=== PATIENT | male | born 1930 | race Caucasian/White ===

== ENCOUNTER 2017-04-07 11:43 | Observation (INO) | payer MEDICARE, BC, OTHER ==
[~2017-04-07] VITALS: Ht 188 cm; Wt 105.0 kg
[~2017-04-07 11:43] MED LIST: ALBUAER3 INH; ASPI81CH PO; COUM2.5T PO; ENAL2.5T PO; FERR1TAB36 PO; ISOS60TA PO; OMEP40CA2 PO; TORS1TAB12 PO; ZETI10TA5 PO
[2017-04-07 11:52] VITALS: BP 130/60; PULSE 60; RESP 24; TEMP 97.9; O2SAT 99
[2017-04-07] MEDS ORDERED: SODIUM CHLOR 0.9% 1000 ML INJ 1,000 ML IV SCH (12:12)
[2017-04-07] MEDS ORDERED: MORPHINE SULFATE 4 MG/ML INJ IV PUSH ONE (12:15)
[2017-04-07] MEDS ORDERED: TAMS5CAP PO (12:15)
[2017-04-07] MEDS ORDERED: SODIUM CHLORIDE 0.9% FLUSH 10 ML FLUSH IV FLUSH PRN ×2 (12:15→15:00)
[2017-04-07] MEDS ORDERED: PROS5TAB PO (12:15)
[2017-04-07 12:23] VITALS: O2SAT 99
--- NOTE | 2017-04-07 12:28 | PD ---
HPI Chief Complaint: Back/ Neck Pain or Injury Time Seen by Provider: 12:05 Travel History International Travel<30 days: No Contact w/Intl Traveler<30days: No Traveled to known affect area: No History of Present Illness HPI 87-year-old male brought in by EMS from home for evaluation of lower back pain. Patient complains of increasing lower back pain over the last 2 weeks, worse over the last couple of days. Pain described as squeezing sensation/sharp and radiates down his right leg. He states he called 911 yesterday because he was unable to get into his bed, and needed assistance from firefighters at that time. This morning he needed assistance getting out of bed. Pain is constant, worse with movement and palpation. He denies trauma. No urinary symptoms. No urinary or bowel incontinence or retention. He states that last year he was diagnosed with a colon cancer for which she had partial colon resection which was curetted. No other history of cancer. He reports having low-grade fevers at home. PFSH Past Medical History Hx Anticoagulant Therapy: Yes (PLAVIX , COUMADIN ) Arthritis: Yes Asthma: No Atrial Fibrillation: Yes Blood Disorders: No Heart Rhythm Problems: Yes Cancer: Yes (colon) Cardiac Catheterization: Yes Cardiovascular Problems: Yes (HTN , STENT ) High Cholesterol: Yes Chest Pain: No Congestive Heart Failure: No COPD: No Diabetes: No Endocrine: No Gastrointestinal Disorders: No Glaucoma: No Genitourinary: Yes Hepatitis: No Hiatal Hernia: No Hypertension: Yes Immune Disorder: No Neurologic: Yes Psychiatric: No Reproductive: No Respiratory: No Integumentary: No Sleep Apnea: No Thyroid Disease: No Past Surgical History Abdominal Surgery: No Cardiac Surgery: Yes (stents) Coronary Artery Bypass Graft: Yes (triple in 1988) Coronary Stent: Yes (2003) Ear Surgery: No Endocrine Surgery: No Eye Surgery: Yes (CATARACT SURGERY IN BOTH EYES) Genitourinary Surgery: No Gynecologic Surgery: No Neurologic Surgery: No Oral Surgery: No Pacemaker: Yes Thoracic Surgery: Yes (CABG) Tonsillectomy: Yes (as a child) Other Surgery: Yes (colon resection) Social History Alcohol Use: No Tobacco Use: No Substance Use: No Allergies-Medications (Allergen,Severity, Reaction): Coded Allergies: Amoxicillin (Verified Allergy, Severe, edema, hives, 04/07/17) Duricef (Verified Allergy, Severe, edema, hives, 04/07/17) Atorvastatin (Verified Allergy, Unknown, 04/07/17) Spironolactone (Verified Allergy, Unknown, 04/07/17) Trental (Verified Allergy, Unknown, 04/07/17) Tricor (Verified Allergy, Unknown, 04/07/17) Reported Meds & Prescriptions Reported Meds & Active Scripts Active Reported Proscar (Finasteride) 5 Mg Tab 5 Mg PO DAILY Do not crush. Flomax (Tamsulosin HCl) 0.4 Mg Cap 0.4 Mg PO HS Zetia (Ezetimibe) 10 Mg Tab 10 Mg PO DAILY Isosorbide Mononitrate ER (Isosorbide Mononitrate) 60 Mg Tab 60 Mg PO DAILY Enalapril (Enalapril Maleate) 2.5 Mg Tab 2.5 Mg PO HS Coumadin (Warfarin) 2.5 Mg Tab 2.5 Mg PO DAILY Omeprazole 40 Mg Cap 40 Mg PO DAILY Iron (Ferrous Sulfate) 325 Mg Tab 325 Mg PO DAILY Take Demadex (Torsemide) 20 Mg Tab 20 Mg PO DAILY Review of Systems Except as stated in HPI: all other systems reviewed are Neg Physical Exam Narrative GENERAL: Well-developed, well-nourished, awake, alert, comfortable, no acute distress. SKIN: Focused skin assessment warm/dry. No rash. HEAD: Atraumatic. Normocephalic. EYES: Pupils equal and round. No scleral icterus. No injection or drainage. ENT: Mucous membranes pink and moist. NECK: Trachea midline. No JVD. CARDIOVASCULAR: Regular rate and rhythm. Bilateral dorsalis pedis pulses are brisk and equal. RESPIRATORY: No accessory muscle use. Clear to auscultation. Breath sounds equal bilaterally. GASTROINTESTINAL: Abdomen soft, non-tender, nondistended. MUSCULOSKELETAL: No obvious deformities. No clubbing. No cyanosis. No edema. Moderate midline/lower lumbar spine tenderness as well as bilateral SI joint tenderness, right greater than left. Limited range of motion in right lower extremity secondary to pain. Normal range of motion in the rest of his extremities. NEUROLOGICAL: Awake and alert. No obvious cranial nerve deficits. Motor grossly within normal limits. Normal speech. Great toe extension present bilaterally. Diminished patellar tendon reflexes bilaterally. Normal sensation in bilateral lower extremities. No saddle anesthesia. PSYCHIATRIC: Appropriate mood and affect; insight and judgment normal. Data Data Last Documented VS Vital Signs Date Time Temp Pulse Resp B/P Pulse Ox O2 Delivery O2 Flow Rate FiO2 04/07/17 14:23 16 04/07/17 14:13 65 124/60 99 Room Air 04/07/17 11:52 97.9 Orders Complete Blood Count With Diff (04/07/17 12:12) Comprehensive Metabolic Panel (04/07/17 12:12) Prothrombin Time / Inr (Pt) (04/07/17 12:12) Act Partial Throm Time (Ptt) (04/07/17 12:12) Urinalysis - C+S If Indicated (04/07/17 12:12) Iv Access Insert/Monitor (04/07/17 12:12) Ecg Monitoring (04/07/17 12:12) Oximetry (04/07/17 12:12) Morphine Inj (Morphine Inj) (04/07/17 12:15) Sodium Chlor 0.9% 1000 Ml Inj (Ns 1000 M (04/07/17 12:12) Sodium Chloride 0.9% Flush (Ns Flush) (04/07/17 12:15) Ct Lumb Spine W/O Contrast (04/07/17 ) Ct Abd/Pel W/O Iv Contrast (04/07/17 13:38) Hydromorphone Pf Inj (Dilaudid Pf Inj) (04/07/17 14:30) Labs Laboratory Tests Test 04/07/17 12:21 White Blood Count 12.2 TH/MM3 Red Blood Count 4.15 MIL/MM3 Hemoglobin 12.2 GM/DL Hematocrit 36.9 % Mean Corpuscular Volume 88.9 FL Mean Corpuscular Hemoglobin 29.5 PG Mean Corpuscular Hemoglobin 33.2 % Concent Red Cell Distribution Width 14.5 % Platelet Count 267 TH/MM3 Mean Platelet Volume 7.9 FL Neutrophils (%) (Auto) 88.3 % Lymphocytes (%) (Auto) 4.7 % Monocytes (%) (Auto) 6.5 % Eosinophils (%) (Auto) 0.1 % Basophils (%) (Auto) 0.4 % Neutrophils # (Auto) 10.8 TH/MM3 Lymphocytes # (Auto) 0.6 TH/MM3 Monocytes # (Auto) 0.8 TH/MM3 Eosinophils # (Auto) 0.0 TH/MM3 Basophils # (Auto) 0.0 TH/MM3 CBC Comment DIFF FINAL Differential Comment Prothrombin Time 47.6 SEC Prothromb Time International 4.1 RATIO Ratio Activated Partial 52.5 SEC Thromboplast Time Sodium Level 132 MEQ/L Potassium Level 4.0 MEQ/L Chloride Level 98 MEQ/L Carbon Dioxide Level 24.6 MEQ/L Anion Gap 9 MEQ/L Blood Urea Nitrogen 37 MG/DL Creatinine 2.17 MG/DL Estimat Glomerular Filtration 29 ML/MIN Rate Random Glucose 128 MG/DL Calcium Level 9.0 MG/DL Total Bilirubin 1.2 MG/DL Aspartate Amino Transf 26 U/L (AST/SGOT) Alanine Aminotransferase 15 U/L (ALT/SGPT) Alkaline Phosphatase 165 U/L Total Protein 8.3 GM/DL Albumin 3.0 GM/DL [facility] Medical Decision Making Medical Screen Exam Complete: Yes Emergency Medical Condition: Yes Differential Diagnosis Lower back pain, vertebral fracture, osteoarthritis, sacroiliitis, cord compression less likely Narrative Course Vital signs show heart rate 60, blood pressure 130/60, pulse ox 99% on room air , oral temp of 97.9F. CBC shows WBC 12.2, hemoglobin 12.2, hematocrit 36.9, platelets 267 CMP is remarkable for BUN 37, creatinine 2.17, GFR 29 which is slightly worse than his baseline, otherwise unremarkable. CT abdomen pelvis: CONCLUSION: 1. Bladder diverticula are noted bilaterally including a left diverticulum containing a calcification. 2. Sigmoid diverticulosis. 3. Cirrhosis and portal hypertension suspected with splenomegaly. 4. Atherosclerosis. 5. Right renal cyst. CT lumbar spine: CONCLUSION: 1. Atherosclerosis. 2. Moderate to severe degenerative changes of the spine. Patient and the patient's were made aware of all findings. Patient admits to drinking 2 alcoholic drinks on Wednesdays and Fridays. Other than that he does not abuse alcohol and has never been told of possible cirrhosis in the past. He is still complaining of lower back pain which is worse with movements. He was given a dose of morphine which she states did nothing for the pain. He will be given a dose of Dilaudid. Patient is unable to ambulate secondary to lower back pain. He is clearly unsafe to be discharged home as I do not believe his will be able to properly care for him. He will be admitted for further treatment and evaluation of intractable back pain and inability to ambulate. Case discussed with [facility] hospitalist Dr. Chakraborty who will admit the patient to his service. Diagnosis Primary Impression: Intractable low back pain Additional Impressions: Inability to ambulate due to multiple joints Osteoarthritis Qualified Code: M47.816 - Osteoarthritis of lumbar spine, unspecified spinal osteoarthritis complication status Admitting Information Admitting Physician Requests: Observation Sylvester Tarango MD April 07, 2017 12:28
[2017-04-07 12:42] LABS: AUTOMATED NEUTROPHIL # 10.8 TH/MM3 (1.8-7.7); BASOPHIL % 0.4 % (0.0-2.0); EOSINOPHIL % 0.1 % (0.0-4.0); HEMATOCRIT 36.9 % (39.0-51.0); HEMO FLAGS DIFF FINAL; LYMPH % 4.7 % (9.0-44.0); LYMPHOCYTE # 0.6 TH/MM3 (1.0-4.8); MEAN CELL VOLUME 88.9 FL (80.0-100.0); MEAN CORPUSCULAR HEMOGLOBIN 29.5 PG (27.0-34.0); MEAN CORPUSCULAR HGB CONC 33.2 % (32.0-36.0); MONO % 6.5 % (0.0-8.0); NEUT % 88.3 % (16.0-70.0); PLATELET COUNT 267 TH/MM3 (150-450); RED BLOOD COUNT 4.15 MIL/MM3 (4.50-5.90); RED CELL DISTRIBUTION WIDTH 14.5 % (11.6-17.2); WHITE BLOOD COUNT 12.2 TH/MM3 (4.0-11.0)
[2017-04-07 12:49] LABS: APTT (PATIENT) 52.5 SEC (24.3-30.1); INTERNATIONAL NORMALIZED RATIO 4.1 RATIO; PROTHROMBIN TIME - PATIENT 47.6 SEC (9.8-11.6)
[2017-04-07 12:59] LABS: ANION GAP 9 MEQ/L (5-15); AST (GOT) 26 U/L (15-37); BICARBONATE 24.6 MEQ/L (21.0-32.0); BLOOD UREA NITROGEN 37 MG/DL (7-18); CHLORIDE 98 MEQ/L (98-107); GLOMERULAR FILTRATION RATE 29 ML/MIN (>89); SODIUM (NA) 132 MEQ/L (136-145)
[2017-04-07 13:02] LABS: ALKALINE PHOSPHATASE 165 U/L (45-117); ALT (GPT) 15 U/L (12-78); TOTAL BILIRUBIN ADULT 1.2 MG/DL (0.2-1.0)
[2017-04-07 14:13] VITALS: BP 124/60; PULSE 65; RESP 16; O2SAT 99
--- NOTE | 2017-04-07 14:13 | RADRPT ---
EXAM DATE/TIME: 04/07/2017 13:43 [facility] COMPARISON: No previous studies available for comparison. INDICATIONS : Right flank pain today. ORAL CONTRAST: No oral contrast ingested. RADIATION DOSE: 10.49 CTDIvol (mGy) MEDICAL HISTORY : Carcinoma, colon. Hypertension. Cardiovascular disease SURGICAL HISTORY : CABG ENCOUNTER: Initial ACUITY: 1 day PAIN SCALE: 7/10 LOCATION: Right flank TECHNIQUE: Volumetric scanning of the abdomen and pelvis was performed. Using automated exposure control and ad justment of the mA and/or kV according to patient size, radiation dose was kept as low as reasonably achievable to obtain optimal diagnostic quality images. FINDINGS: Lung bases are clear. There are degenerative changes of the spine noted. Coronary artery calcificatio n is noted and pacer leads are present. There is splenomegaly, the spleen measuring 17.5 cm in AP dim ension. The liver is slightly nodular and mildly inhomogeneous suggesting cirrhosis. Gallbladder, sto mach, pancreas, adrenal glands are unremarkable. There is an exophytic cyst at the upper pole of the right kidney noted laterally. No aneurysm. Atherosclerotic calcifications of the aorta and iliac vess els are seen. Prostate unremarkable. Bladder diverticula are present in bilateral including a diverti culum on the left measuring 2.3 cm and containing a 3 mm calculus. There is diverticulosis without ev idence of diverticulitis. Previous surgery to the colon with right hemicolectomy. No adenopathy. Smal l fat containing umbilical hernia. CONCLUSION: 1. Bladder diverticula are noted bilaterally including a left diverticulum containing a calcification . 2. Sigmoid diverticulosis. 3. Cirrhosis and portal hypertension suspected with splenomegaly. 4. Atherosclerosis. 5. Right renal cyst. Ervin Mullins MD on April 07, 2017 at 14:08 Board Certified Radiologist. This report was verified electronically.
--- NOTE | 2017-04-07 14:15 | RADRPT ---
EXAM DATE/TIME: 04/07/2017 13:43 [facility] COMPARISON: No previous studies available for comparison. INDICATIONS : Lower back pain today. RADIATION DOSE: ; Reconstructed from previous dataset MEDICAL HISTORY : Carcinoma, colon. Hypertension. Cardiovascular disease SURGICAL HISTORY : CABG ENCOUNTER: Initial ACUITY: 1 day PAIN SCALE: 8/10 LOCATION: Bilateral lower back TECHNIQUE: Volumetric scanning of the lumbar spine was performed. Multiplanar reconstructions in the sagittal, coronal and oblique axial planes were performed. Using automated exposure control and adjustment of the mA and/or kV according to patient size, radiation dose was kept as low as reasonably achievable t o obtain optimal diagnostic quality images. FINDINGS: There is moderate to severe multilevel disc space narrowing, with vacuum disc phenomenon, endplate sc lerosis and osteophytosis. No compression deformities. Schmorl node superior endplate of L3 and a lar ge Schmorl node at the inferior endplate of L1. Vacuum disc phenomenon is present. Aortic and iliac a rtery calcifications are seen. There are no fractures. Grade 1 retrolisthesis of L1 on L2 identified. CONCLUSION: 1. Atherosclerosis. 2. Moderate to severe degenerative changes of the spine. Ervin Mullins MD on April 07, 2017 at 14:12 Board Certified Radiologist. This report was verified electronically.
[2017-04-07] MEDS ORDERED: HYDROmorphone HCL PF 1 MG/ML VIAL IV PUSH ONE (14:30)
[2017-04-07] MEDS ORDERED: ONDANSETRON HCL 4 MG/2 ML VIAL IVP PRN (15:00)
[2017-04-07] MEDS ORDERED: ACETAMINOPHEN 325 MG TAB PO PRN (15:00)
[2017-04-07] MEDS ORDERED: NALOXONE HCL 0.4 MG/ML AMP IV PRN (15:00)
[2017-04-07] MEDS: SODIUM CHLOR 0.9% 1000 ML INJ 1,000 ML IV SCH (15:16)
[2017-04-07 16:05] VITALS: BP 122/60; PULSE 60; RESP 18; TEMP 98.4; O2SAT 96
--- NOTE | 2017-04-07 16:24 | MH ---
cc: TIM CHAKRABORTY MD DATE OF ADMISSION 04/07/2017 DATE OF [address] Tim Chakraborty. PRIMARY CARE PHYSICIAN Dr. Purdy REASON FOR ADMISSION Severe lower back pain. HISTORY OF THE PRESENT ILLNESS The patient is a very pleasant 87-year male with a past medical history of atrial fibrillation on Coumadin. He also has hypertension and CAD with stenting in the past. And CABG. The patient came to the ER because of severe back pain. The patient's back pain started approximately 2 weeks ago and it is getting worse. It has been getting worse for the past couple of days. It is just a pressure type sensation. It is radiating to the right thigh and right leg. He has a history of peripheral neuropathy. He has less sensation in the lower extremity with some numbness which is usual for him. There is no new numbness or there is no new or extra lack of sensation. Yesterday he could not get into the bed, so they called and a district fire management officer put him in the bed. He could not out of the bed this morning. And then they called again and they brought him to the ER. The patient has no other associated symptoms. His back pain is across the back. It is moderate to severe in intensity, radiating to the right side of the leg, mostly in the lateral and the back side. It is on movement as well. Mostly on the sitting but laying down it eased up. There is no other associated symptoms. He has no bowel or bladder incontinence or retention. There is no new numbness or tingling sensation. There is no new weakness. There is no fever or chills. There is no abdominal pain. The patient has a history of colon cancer for which he had a partial colon resection last year. As per he has low grade fever at home a few days ago. But there was no nausea or vomiting or cough or abdominal pain or sore throat. PAST MEDICAL HISTORY 1. Atrial fibrillation. 2. Hypertension. 3. CAD status post CABG and stent. 4. Arthritis. 5. Hyperlipidemia. PAST SURGICAL HISTORY 1. History of CABG, stents. 2. Partial colon resection. MEDICATIONS The medications were reviewed, please see MAR. ALLERGIES THE PATIENT HAS ALLERGY TO AMOXICILLIN, DURICEF, ATORVASTATIN, SPIRONOLACTONE, TRENTAL AND TRICOR. REVIEW OF SYSTEMS As described above in the history of present illness, otherwise negative for 10 systems. SOCIAL HISTORY The patient does not smoke or do any drugs. lives with his . Drinks two [place] three times a week. He has been doing this from the age of 22. FAMILY HISTORY CAD in the family. Mother and father of heart attack. PHYSICAL EXAMINATION GENERAL: The patient is alert and oriented x3, overweight lying on bed without any apparent distress at present. VITAL SIGNS: Show the patient is afebrile, pulse 61, respiratory rate 16, blood pressure 134/60, pulse ox is 99% on room air. HEENT: Head atraumatic, normocephalic. Eyes, THERON. Negative conjunctival icterus. Mouth unremarkable. NECK: Supple. No increased JVD. Central trachea. RESPIRATORY: Chest clear to auscultation. He has S1-S2 audible. Unable to hear any S3 gallop. GASTROINTESTINAL: Abdomen soft, nontender. No organomegaly. Positive bowel sounds. MUSCULOSKELETAL: No cyanosis or pedal edema appreciated. CENTRAL NERVOUS SYSTEM: Alert and oriented. Normal facial features. Normal power and tone of bilateral upper extremities. And also normal power and tone of lower extremities as well. Cannot lift right lower extremity above because of the pain in the back area. It is only on the right side. There is a decreased sensation on both feet which is usual for him. Decreased other tendon reflex. PSYCHIATRIC: Appropriate mood and affect. IMAGING Investigation, abdomen and pelvic CT was done which showed bladder diverticula are noted bilaterally including a left diverticulum containing a calcification. Sigmoid diverticulosis. Cirrhosis and portal hypertension splenomegaly. Atherosclerosis. Right renal cyst. CT of the spine was done which showed atherosclerotic, moderate to severe degenerative changes of the spine. LABORATORY DATA Shows PT 47.6. INR 4.1. PTT 52.5. BMP shows sodium 132, BUN 37, creatinine 2.17, GFR 29, random glucose 128. Total bilirubin 1.2, alkaline phosphatase 165, total protein 8.3, albumin 3. WBC 12.2, hemoglobin 12.2, hematocrit 36.9. ASSESSMENT 1. Moderate to severe lower back pain with inability to stand and walk. 2. Supratherapeutic INR. 3. Acute renal failure, LORIE/questionable CKD. 4. Hypertension. 5. History of coronary artery disease status post stenting. 6. History of colon cancer status post partial resection. 7. Arthritis. 8. Atrial fibrillation on Coumadin. PLAN Admit to the floor under observation. He will keep him on some of home medications and hold Coumadin. Monitor PT/INR. Plan for analgesics IV. Orthopedic consult. Plan for MRI of the back. Condition discussed with the patient and at bedside in details. Discussed with ER physician. See orders. Further recommendation to follow as the patient progresses. Tim Chakraborty MD JP/KK /3:00 PM /3:40 PM
[2017-04-07] MEDS: TAMSULOSIN HCL 0.4 MG CAP PO SCH (19:24)
[2017-04-07 19:48] VITALS: BP 115/54; PULSE 60; RESP 18; TEMP 98.2; O2SAT 99
[2017-04-07] MEDS: SODIUM CHLORIDE 0.9% FLUSH 10 ML FLUSH IV FLUSH SCH (21:00)
[2017-04-07 21:36] LABS: BLOOD, URINE NEG (NEG); COMMENT (UR) CULT NOT INDICATED; CULTURE IF INDICATED CULT NOT INDICATED; GLUCOSE,URINE NEG (NEG); KETONE, URINE NEG (NEG); MUCUS URINE FEW /lpf (OCC); NITRITE,URINE NEG (NEG); URINE COLOR YELLOW (YELLW/STRAW)
[2017-04-07] MEDS: HYDROmorphone HCL PF 1 MG/ML VIAL IV PUSH PRN (22:09)
[2017-04-08] VITALS: BP 129/67; PULSE 60; RESP 20; TEMP 99.1; O2SAT 98
[2017-04-08 04:00] VITALS: BP 134/62; PULSE 60; RESP 20; TEMP 78.6; O2SAT 96
[2017-04-08] MEDS: HYDROmorphone HCL PF 1 MG/ML VIAL IV PUSH PRN ×2 (04:50→09:33)
[2017-04-08] MEDS: SODIUM CHLOR 0.9% 1000 ML INJ 1,000 ML IV SCH ×3 (04:50→20:13)
[2017-04-08 05:15] LABS: AUTOMATED NEUTROPHIL # 4.9 TH/MM3 (1.8-7.7); BASOPHIL # 0.1 TH/MM3 (0-0.2); BASOPHIL % 0.8 % (0.0-2.0); EOSINOPHIL # 0.1 TH/MM3 (0-0.4); EOSINOPHIL % 1.1 % (0.0-4.0); HEMATOCRIT 33.7 % (39.0-51.0); HEMO FLAGS DIFF FINAL; LYMPH % 18.5 % (9.0-44.0); LYMPHOCYTE # 1.4 TH/MM3 (1.0-4.8); MEAN CELL VOLUME 88.3 FL (80.0-100.0); MONO % 12.7 % (0.0-8.0); NEUT % 66.9 % (16.0-70.0); PLATELET COUNT 230 TH/MM3 (150-450); RED BLOOD COUNT 3.82 MIL/MM3 (4.50-5.90); RED CELL DISTRIBUTION WIDTH 14.6 % (11.6-17.2); WHITE BLOOD COUNT 7.4 TH/MM3 (4.0-11.0)
[2017-04-08 05:28] LABS: BICARBONATE 26.7 MEQ/L (21.0-32.0); INTERNATIONAL NORMALIZED RATIO 4.4 RATIO; POTASSIUM 4.6 MEQ/L (3.5-5.1); PROTHROMBIN TIME - PATIENT 51.8 SEC (9.8-11.6)
[2017-04-08 07:26] VITALS: BP 139/65; PULSE 64; RESP 18; TEMP 96.7; O2SAT 97
--- NOTE | 2017-04-08 09:17 | HHI.PR ---
Subjective Subjective Remarks right knee pain with flexion, has had effusions before. Hx of severe OA, has seen ortho before but not a surgical candidate states pain goes from knee to right buttock still having pain across lower back but not as severe no cp no sob no acute changes overnight has not been out of bed yet (Leeanne Franklin) Review of Systems Constitutional Constitutional Remarks 12 point ROS completed, negative except as noted above (Leeanne Franklin) Vitals/Results Intake & Output 04/07/17 04/07/17 04/08/17 15:00 23:00 07:00 Intake Total 320 ml Output Total 320 ml Balance 0 ml Intake Oral 320 ml Output Urine Total 320 ml # Bowel Movements 0 Vital Signs Vital Signs Date Time Temp Pulse Resp B/P Pulse Ox O2 Delivery O2 Flow Rate FiO2 04/08/17 07:26 96.7 64 18 139/65 97 04/08/17 05:34 18 04/08/17 04:00 78.6 60 20 134/62 96 04/08/17 00:00 99.1 60 20 129/67 98 04/07/17 19:48 98.2 60 18 115/54 99 04/07/17 16:05 98.4 60 18 122/60 96 04/07/17 14:23 16 04/07/17 14:13 65 16 124/60 99 Room Air 04/07/17 12:23 99 Room Air 04/07/17 11:52 97.9 60 24 130/60 99 Room Air (Leeanne Franklin) CBC/BMP: 04/08/17 0434 04/08/17 0434 Lab Results Laboratory Tests Test 04/07/17 04/07/17 04/08/17 12:21 21:10 04:34 White Blood Count 12.2 TH/MM3 7.4 TH/MM3 Red Blood Count 4.15 MIL/MM3 3.82 MIL/MM3 Hemoglobin 12.2 GM/DL 11.5 GM/DL Hematocrit 36.9 % 33.7 % Mean Corpuscular Volume 88.9 FL 88.3 FL Mean Corpuscular Hemoglobin 29.5 PG 30.0 PG Mean Corpuscular Hemoglobin 33.2 % 34.0 % Concent Red Cell Distribution Width 14.5 % 14.6 % Platelet Count 267 TH/MM3 230 TH/MM3 Mean Platelet Volume 7.9 FL 7.7 FL Neutrophils (%) (Auto) 88.3 % 66.9 % Lymphocytes (%) (Auto) 4.7 % 18.5 % Monocytes (%) (Auto) 6.5 % 12.7 % Eosinophils (%) (Auto) 0.1 % 1.1 % Basophils (%) (Auto) 0.4 % 0.8 % Neutrophils # (Auto) 10.8 TH/MM3 4.9 TH/MM3 Lymphocytes # (Auto) 0.6 TH/MM3 1.4 TH/MM3 Monocytes # (Auto) 0.8 TH/MM3 0.9 TH/MM3 Eosinophils # (Auto) 0.0 TH/MM3 0.1 TH/MM3 Basophils # (Auto) 0.0 TH/MM3 0.1 TH/MM3 CBC Comment DIFF FINAL DIFF FINAL Differential Comment Prothrombin Time 47.6 SEC 51.8 SEC Prothromb Time International 4.1 RATIO 4.4 RATIO Ratio Activated Partial 52.5 SEC Thromboplast Time Sodium Level 132 MEQ/L 138 MEQ/L Potassium Level 4.0 MEQ/L 4.6 MEQ/L Chloride Level 98 MEQ/L 103 MEQ/L Carbon Dioxide Level 24.6 MEQ/L 26.7 MEQ/L Anion Gap 9 MEQ/L 8 MEQ/L Blood Urea Nitrogen 37 MG/DL 37 MG/DL Creatinine 2.17 MG/DL 1.63 MG/DL Estimat Glomerular Filtration 29 ML/MIN 40 ML/MIN Rate Random Glucose 128 MG/DL 93 MG/DL Calcium Level 9.0 MG/DL 8.9 MG/DL Total Bilirubin 1.2 MG/DL Aspartate Amino Transf 26 U/L (AST/SGOT) Alanine Aminotransferase 15 U/L (ALT/SGPT) Alkaline Phosphatase 165 U/L Total Protein 8.3 GM/DL Albumin 3.0 GM/DL Urine Color YELLOW Urine Turbidity CLEAR Urine pH 5.0 Urine Specific [place] 1.011 Urine Protein NEG mg/dL Urine Glucose (UA) NEG mg/dL Urine Ketones NEG mg/dL Urine Occult Blood NEG Urine Nitrite NEG Urine Bilirubin NEG Urine Urobilinogen LESS THAN 2.0 MG/DL Urine Leukocyte Esterase NEG Urine RBC 2 /hpf Urine WBC 1 /hpf Urine Mucus FEW /lpf Microscopic Urinalysis Comment CULT NOT INDICATED (Gross,Leeanne HACKETT) Physical Exam General General Appearance: Well Developed, Well Nourished, No Acute Distress, Comfortable (GrossLeeanne G. REVENUE COLLECTOR) Eyes Eye Exam: Pupils Equal, Pupils Reactive (GrossLeeanne G. REVENUE COLLECTOR) Ears & Nose Ears & Nose Exam: Nasal Mucosa [place] (GrossLeeanne G. REVENUE COLLECTOR) Throat Throat Exam: Oral Mucosa [place] & Moist (Gross,Leeanne G. REVENUE COLLECTOR) Neck Neck Exam: Neck Supple, Trachea Midline (GrossLeeanne G. REVENUE COLLECTOR) Pulmonary Resp Exam: Clear Bilaterally (GrossLeeanne G. REVENUE COLLECTOR) Cardiology CV Exam: Regular, Good Perfusion (GrossLeeanne G. REVENUE COLLECTOR) Gastrointestinal/Abdomen GI Exam: Soft, Non-Tender, Bowel Sounds Present, Non-Distended (GrossLeeanne G. REVENUE COLLECTOR) Musculoskeletal MS Exam: Joints Intact MS Remarks right knee swelling, painful with flexion (GrossLeeanne G. REVENUE COLLECTOR) Integumentary Skin Exam: Warm, Dry (GrossLeeanne G. REVENUE COLLECTOR) Extremeties Extremities Exam: No Edema, Pedal Pulses Palpable (GrossLeeanne G. REVENUE COLLECTOR) Neurologic Neuro Exam: Alert, Awake, Oriented, Speech Clear, Moving All Extremities, No Focal Deficits (GrossLeeanne G. REVENUE COLLECTOR) Psychiatric Psych Exam: Appropriate Responses (GrossLeeanne G. REVENUE COLLECTOR) VTE Prophylaxis VTE Prophylaxis Device: SCDs (GrossLeeanne G. REVENUE COLLECTOR) Assessment/Plan Problem List: (1) Right knee pain (2) Inability to ambulate due to multiple joints (3) Intractable low back pain (4) Osteoarthritis (5) Atrial fibrillation (6) HTN (hypertension) (7) Supratherapeutic INR (8) CAD (coronary artery disease) (9) History of colon cancer (10) Azcqe-br-vfymser kidney injury Assessment/Plan low back pain and difficulty ambulating, also with right knee pain, Hx severe OA CT lumbar spine done, results noted unable to have MRI due to ppm continue with pain management c/o right knee pain, will check xray. Ortho consult pending PT eval today continue to hold Coumadin, INR elevated 4.4 follow INR daily acute on CKD renal function improving continue with IVF unclear if pt. has underlying renal disease avoid nephrotoxic agents CM for dc planning tomorrow arrange C with PT BMP in am D/W RN D/W Dr. Paul D/W pt. This patient was seen by myself and Dr. Paul, this note is written on his behalf. (Leeanne Franklin) Assessment/Plan patient seen and examined agree with above assessment and plan pain control/symptom management may need outpatient pain management eval discussed with patient discussed with nursing staff discussed with Leeanne HACKETT (Urszula Paul MD) Problem Qualifiers (1) Right knee pain: Qualified Code: M25.561 - Chronic pain of right knee (2) Osteoarthritis: Qualified Code: M47.816 - Osteoarthritis of lumbar spine, unspecified spinal osteoarthritis complication status (3) Atrial fibrillation: Qualified Code: I48.2 - Chronic atrial fibrillation (4) HTN (hypertension): Qualified Code: I10 - Essential hypertension (5) CAD (coronary artery disease): Qualified Code: I25.10 - Coronary artery disease involving [place] coronary artery of [place] heart without angina pectoris (6) Rvhwu-va-wjblath kidney injury: Qualified Code: N17.9 - Acute renal failure superimposed on stage 3 chronic kidney disease, unspecified acute renal failure type Leeanne Franklin April 08, 2017 09:17 Urszula Paul MD April 08, 2017 10:03
[2017-04-08] MEDS: FERROUS SULFATE 325 MG (65 MG ELEMENTAL IRON) TAB PO SCH (09:32)
[2017-04-08] MEDS: EZETIMIBE 10 MG TAB PO SCH (09:32)
[2017-04-08] MEDS: FINASTERIDE 5 MG TAB PO SCH (09:32)
[2017-04-08] MEDS: PANTOPRAZOLE SOD 40 MG DELAYED RELEASE TAB PO SCH (09:32)
[2017-04-08] MEDS: ISOSORBIDE MONONITRATE 60 MG TAB PO SCH (09:32)
[2017-04-08] MEDS: TORSEMIDE 20 MG TAB PO SCH (09:32)
[2017-04-08] MEDS: SODIUM CHLORIDE 0.9% FLUSH 10 ML FLUSH IV FLUSH SCH ×2 (09:33→20:13)
[2017-04-08 11:00] VITALS: BP 121/59; PULSE 60; RESP 60; TEMP 98.3; O2SAT 97
--- NOTE | 2017-04-08 11:08 | RADRPT ---
EXAM DATE/TIME: 04/08/2017 10:48 [place] COMPARISON: No previous studies available for comparison. INDICATIONS : Right knee pain. MEDICAL HISTORY : Carcinoma, colon. Hypertension. Cardiovascular disease. SURGICAL HISTORY : CABG. Vein harvest for CABG. ENCOUNTER: Initial ACUITY: 3 days PAIN SCORE: 7/10 LOCATION: Right knee FINDINGS: 4 views of the right knee demonstrate no fracture or dislocation. There is a large joint effusion. Tr icompartmental osteophytes are present with joint space narrowing in all compartments, most severe in the lateral compartment. There are multiple clips on the medial aspect of the knee and there is wendy re arterial vascular calcification. CONCLUSION: 1. Large joint effusion from uncertain etiology. No fracture is seen. 2. Severe tricompartmental osteoarthritis. 3. Severe atherosclerotic calcification. Sudarshan Christianson MD on April 08, 2017 at 11:05 Board Certified Radiologist. This report was verified electronically.
--- NOTE | 2017-04-08 14:01 | MB ---
cc: RENEA LLOYD M.D. DATE OF CONSULTATION: 04/08/2017 REASON FOR CONSULTATION Low back pain, right leg sciatica. HISTORY OF PRESENT ILLNESS An 87-year-old male with a past history of atrial fibrillation on Coumadin as well as hypertension, heart disease and CABG. He presented to [facility] Emergency Room with severe low back pain and some referred symptoms down the right lower extremity in a sciatic nerve distribution. He states it has been getting worse for several days. He has some numbness and tingling in this region. He had difficulty getting out of bed yesterday. He called 911 and was brought to the hospital. The pain is moderate to severe, worsening symptoms with standing, walking, ambulation as well as bending. There are no other associated symptoms. No bowel or bladder dysfunction. No fevers or chills. PAST MEDICAL HISTORY 1. Atrial fibrillation. 2. Hypertension. 3. Heart disease. 4. CABG. 5. Arthritis. 6. Hyperlipidemia. PAST SURGICAL HISTORY 1. CABG. 2. Cardiac stenting. 3. Partial colon resection. MEDICATIONS 1. Vasotec. 2. Zetia. 3. Iron. 4. Proscar. 5. Imdur. 6. Demadex. 7. Protonix. 8. Flomax. 9. Coumadin. ALLERGIES 1. AMOXICILLIN. 2. DURICEF. 3. ATORVASTATIN. 4. SPIRONOLACTONE. 5. TRENTAL. 6. TRICOR. SOCIAL HISTORY He does not smoke or use drugs. He is . He drinks two drinks of alcohol per day. FAMILY HISTORY Positive for heart disease, mother and father's side. REVIEW OF SYSTEMS Negative for 12 systems other than HPI. PHYSICAL EXAMINATION VITAL SIGNS: Temperature 98.3, pulse 60, respirations 16, blood pressure 120/60. GENERAL: The patient is awake and alert, lying in bed in no acute distress. HEENT: Normocephalic, atraumatic. Pupils round. Extraocular muscles intact. NECK: Supple. LUNGS: Clear. HEART: Regular rate and rhythm. ABDOMEN: Soft, nontender. MUSCULOSKELETAL: The patient has tenderness to palpation of the lower lumbar spine. He has increasing symptoms with a straight leg raise on the right side. No significant neurologic weakness to the lower extremities. CT scan lumbar spine shows multilevel degenerative disc disease and osteoarthritis. No fracture seen. Of note, he is not able to get an MRI because he does have a pacemaker. LABORATORY STUDIES White blood cell count 7.4, hemoglobin 11, hematocrit 33, platelets 230. INR is 4.4. Creatinine 1.63. Urinalysis is negative. IMAGING CT scan of the lumbar spine is reviewed that shows multilevel severe degenerative disc disease and osteoarthritis. No fracture seen. X-ray of the right knee is reviewed that shows severe [id number]-[id number] osteoarthritis, evidence of prior saphenous vein harvesting for CABG with surgical clips seen. He has atherosclerotic vessel disease seen as well. IMPRESSION An 87-year-old male with low back pain, right leg sciatica, severe degenerative disc disease and osteoarthritis of the lumbar spine. No fracture seen on x-ray. Unable to get an MRI because of the pacemaker. He has a history of heart disease, CABG, pacemaker, on Coumadin with an INR of greater than 4, and also significant osteoarthritis of his right knee. PLAN I discussed the diagnosis with the patient and treatment options. At this point I recommend appropriate pain management for his condition. I do recommend therapy. He needs to be out of bed. Consideration of pain management intervention with epidural injections. He would, however, have to be off Coumadin as this would have a risk of bleeding and epidural hematoma. All questions have been answered. Renea Lloyd MD JWM/JUAN PABLO /1:35 PM /1:45 PM
[2017-04-08 15:36] VITALS: BP 128/60; PULSE 60; RESP 20; TEMP 99.2; O2SAT 98
[2017-04-08] MEDS: ENALAPRIL MALEATE 2.5 MG TAB PO SCH (20:13)
[2017-04-08] MEDS: TAMSULOSIN HCL 0.4 MG CAP PO SCH (20:13)
[2017-04-08 23:55] VITALS: BP 132/64; PULSE 62; RESP 17; TEMP 98.2; O2SAT 96
[2017-04-09] VITALS (7 sets, daily range): BP systolic 107–157; BP diastolic 59–71; PULSE 60–70; RESP 16–21; TEMP 98.1–99; O2SAT 95–98
[2017-04-09] MEDS: HYDROmorphone HCL PF 1 MG/ML VIAL IV PUSH PRN ×2 (04:46→08:53)
[2017-04-09] MEDS: SODIUM CHLOR 0.9% 1000 ML INJ 1,000 ML IV SCH ×2 (05:12→17:04)
[2017-04-09 07:30] LABS: INTERNATIONAL NORMALIZED RATIO 5.9 RATIO; PROTHROMBIN TIME - PATIENT 70.2 SEC (9.8-11.6)
[2017-04-09 07:56] LABS: BICARBONATE 26.1 MEQ/L (21.0-32.0); POTASSIUM 4.5 MEQ/L (3.5-5.1)
[2017-04-09] MEDS: FERROUS SULFATE 325 MG (65 MG ELEMENTAL IRON) TAB PO SCH (08:46)
[2017-04-09] MEDS: EZETIMIBE 10 MG TAB PO SCH (08:47)
[2017-04-09] MEDS: FINASTERIDE 5 MG TAB PO SCH (08:47)
[2017-04-09] MEDS: PANTOPRAZOLE SOD 40 MG DELAYED RELEASE TAB PO SCH (08:47)
[2017-04-09] MEDS: TORSEMIDE 20 MG TAB PO SCH (08:47)
[2017-04-09] MEDS: ISOSORBIDE MONONITRATE 60 MG TAB PO SCH (08:48)
[2017-04-09] MEDS: SODIUM CHLORIDE 0.9% FLUSH 10 ML FLUSH IV FLUSH SCH ×2 (08:48→19:57)
--- NOTE | 2017-04-09 09:23 | HHI.PR ---
Subjective Remarks Low back pain, IV meds mildly effective Right knee pain with mild effusion Resting in bed Alert present Afebrile (Kyara Mercedes) Objective Objective Results - Vital Signs Date Time Temp Pulse Resp B/P Pulse Ox O2 Delivery O2 Flow Rate FiO2 04/09/17 08:00 98.2 60 16 140/64 96 04/09/17 07:28 98.2 60 16 140/64 96 04/09/17 03:28 98.2 60 16 139/71 98 04/08/17 23:55 98.2 62 17 132/64 96 04/08/17 15:36 99.2 60 20 128/60 98 04/08/17 11:00 98.3 60 60 121/59 97 04/08/17 10:03 16 I/O 04/08/17 04/08/17 04/08/17 04/09/17 04/09/17 04/09/17 07:00 15:00 23:00 07:00 15:00 23:00 Intake Total 320 ml 120 ml Output Total 320 ml 300 ml Balance 0 ml 120 ml -300 ml Intake Oral 320 ml 120 ml Output Urine Total 320 ml 300 ml # Bowel Movements 0 (Kyara Mercedes) Result Diagram: 04/08/17 0434 04/09/17 0641 ROS General: Fatigue, Weakness (generalized), Other (10 point ROS done positives noted other systems negative or unremarkable) Cardiac: Edema (trace of lower leg bilateral, ) Pulmonary: Cough (occasional) GI: BM (right before admission, bowel regimen intact) Neuro/MS: Other (low back pain acute on chronic, with debility, right leg pain radiation from low back) (Kyara Mercedes) Physical Exam Physical Exam PHYSICAL EXAMINATION GENERAL: This is an obese well-developed elderly male Resting in the bed He is alert and awake, HEAD: Normocephalic without any lesion or mass noted. Facial features appear symmetric. OROPHARYNGEAL: Oropharynx without erythema or edema. NECK: Supple. No nuchal rigidity or lymphadenopathy. Trachea midline without deviation. CARDIAC: rhythm and rate controlled less than 100, , S1 and S2 are heard. LUNGS: Clear to auscultation bilaterally. no wheeze, no rhonchi ABDOMEN: Soft, round, nontender, Bowel sounds are heard in all four quadrants. No nausea or vomiting EXTREMITIES: Trace edema. Pulses equal bilateral. NEUROLOGICAL: Patient mood and affect appropriate. No focal deficit SKIN:Warm and moist Objective Remarks Mild low back pain radiating into my right leg continues to be painful (Kyara Mercedes) A/P Assessment and Plan (1) Right knee pain (2) Inability to ambulate due to multiple joints (3) Intractable low back pain (4) Osteoarthritis (5) Atrial fibrillation (6) HTN (hypertension) (7) Supratherapeutic INR (8) CAD (coronary artery disease) (9) History of colon cancer (10) Cmtgc-sm-hpwcriv kidney injury Assessment/Plan Right knee pain, probable osteoarthritis and small effusion, can follow up as an outpatient, continue to increase mobility is much as possible in a safe environment Osteoarthritis, generalized in his joints, outpatient treatment regimen, physical therapy Joint pain in toes and feet, being followed per podiatry on an outpatient basis , right great toe has healing wound, covered with Band-Aid Probable sciatica low back pain and difficulty ambulating, Right knee pain with possible effusion and osteoarthritis continue to hold Coumadin, appreciate consultation of orthopedic physician appropriate pain management for his condition Physical therapy. He needs to be out of bed. Possible epidural injections. He would, however, have to be off Coumadin as this would have a risk of bleeding and epidural hematoma. INR elevated 4.4 on admission and continues to climb to 5.9, 1 dose of vitamin K given injection, follow INR daily , Coumadin management per pharmacy acute on CKD renal function improving with gentle hydration CM for dc planning possible tomorrow, will need by mouth pain management Monitor PT INR for stabilization before discharge arrange [facility] with PT Patient can follow up with ortho an outpatient for any further injections or workup since he would have to be off Coumadin. Discussed with patient and his Discussed with nurse Discussed with Dr. paul, seen on her behalf (Kyara Mercedes) Assessment and Plan patient seen and examined agree with above assessment and plan s/p VIT K monitor INR Appreciate Ortho input pain management consult start percocet dilaudid for breakthrough pain PT eval plan of care discussed with patient, nursing staff , at bed side and Kyara HACKETT INR in am (Urszula Paul MD) Kyara Mercedes April 09, 2017 09:23 Urszula Paul MD April 09, 2017 10:44
[2017-04-09] MEDS ORDERED: PHYTONADIONE 10 MG/ML VIAL SQ ONE (09:45)
[2017-04-09] MEDS: oxyCODONE/ACETAMINOPHEN 5 MG/325 MG TAB PO PRN ×3 (10:36→20:03)
[2017-04-09] MEDS: TAMSULOSIN HCL 0.4 MG CAP PO SCH (20:03)
[2017-04-09] MEDS: ENALAPRIL MALEATE 2.5 MG TAB PO SCH (20:03)
[2017-04-10] MEDS: oxyCODONE/ACETAMINOPHEN 5 MG/325 MG TAB PO PRN ×4 (00:47→21:27)
[2017-04-10] MEDS: SODIUM CHLOR 0.9% 1000 ML INJ 1,000 ML IV SCH (02:25)
[2017-04-10] MEDS: HYDROmorphone HCL PF 1 MG/ML VIAL IV PUSH PRN ×2 (02:51→09:23)
[2017-04-10 05:02] VITALS: BP 141/62; PULSE 60; RESP 20; TEMP 97.9; O2SAT 97
[2017-04-10 05:26] LABS: INTERNATIONAL NORMALIZED RATIO 3.8 RATIO; PROTHROMBIN TIME - PATIENT 45.1 SEC (9.8-11.6)
[2017-04-10 07:06] VITALS: BP 133/61; PULSE 60; RESP 18; TEMP 98.2; O2SAT 96
[2017-04-10] MEDS: SODIUM CHLORIDE 0.9% FLUSH 10 ML FLUSH IV FLUSH SCH ×2 (09:23→21:26)
[2017-04-10] MEDS: TORSEMIDE 20 MG TAB PO SCH (09:25)
[2017-04-10] MEDS: PANTOPRAZOLE SOD 40 MG DELAYED RELEASE TAB PO SCH (09:25)
[2017-04-10] MEDS: FERROUS SULFATE 325 MG (65 MG ELEMENTAL IRON) TAB PO SCH (09:25)
[2017-04-10] MEDS: ISOSORBIDE MONONITRATE 60 MG TAB PO SCH (09:25)
[2017-04-10] MEDS: FINASTERIDE 5 MG TAB PO SCH (09:25)
[2017-04-10] MEDS: EZETIMIBE 10 MG TAB PO SCH (09:26)
--- NOTE | 2017-04-10 09:42 | HHI.PR ---
Subjective Remarks Low back pain, continues Right knee pain with mild effusion decreased to no appetite X 2 weeks Alert, debility present Afebrile (Kyara Mercedes) Objective Objective Results - Vital Signs Date Time Temp Pulse Resp B/P Pulse Ox O2 Delivery O2 Flow Rate FiO2 04/10/17 07:06 98.2 60 18 133/61 96 04/10/17 05:02 97.9 60 20 141/62 97 04/09/17 23:40 99.0 70 21 157/67 96 04/09/17 19:35 98.9 61 20 154/68 98 04/09/17 17:04 18 04/09/17 15:39 98.1 62 16 142/64 95 04/09/17 12:13 98.3 60 16 107/59 96 I/O 04/09/17 04/09/17 04/09/17 04/10/17 04/10/17 04/10/17 07:00 15:00 23:00 07:00 15:00 23:00 Intake Total 1076 ml 240 ml Output Total 700 ml 350 ml 175 ml Balance 376 ml 240 ml -350 ml -175 ml Intake Oral 480 ml 240 ml IV Total 596 ml Output Urine Total 700 ml 350 ml 175 ml # Voids 2 (Kyara Mercedes) Result Diagram: 04/08/17 0434 04/09/17 0641 ROS General: Fatigue, Weakness, Other (10 point ROS done, positives noted) HEENT: Other (no appetite, to solid food, drinking liquids) GI: BM (regimen) Neuro/MS: Other (LBP) (Kyara Mercedes) Physical Exam Physical Exam PHYSICAL EXAMINATION GENERAL: This is an obese elderly male who appears to be in no acute distress at rest. He is awake, HEAD: Normocephalic Facial features appear symmetric. OROPHARYNGEAL: Oropharynx without erythema or edema. NECK: Supple. No nuchal rigidity or lymphadenopathy. Trachea midline without deviation. CARDIAC: Regular rhythm, regular rate LUNGS: Clear to auscultation bilaterally. low volumes at rest ABDOMEN: obese,Soft, nontender, no organomegaly or masses. Bowel sounds are heard in all four quadrants. EXTREMITIES: minimal trace edema. Pulses equal bilateral. NEUROLOGICAL: Patient mood and affect ok, questional poor historian to recent events SKIN:Warm and moist Objective Remarks Im just not hungry and not going to try? (Kyara Mercedes) A/P Assessment and Plan (1) Right knee pain (2) Inability to ambulate due to multiple joints (3) Intractable low back pain (4) Osteoarthritis (5) Atrial fibrillation (6) HTN (hypertension) (7) Supratherapeutic INR (8) CAD (coronary artery disease) (9) History of colon cancer (10) Rvooo-gn-hncphln kidney injury Assessment/Plan Right knee pain, probable osteoarthritis and small effusion, PT eval,, continue to increase mobility is much as possible in a safe environment, possible inpt. rehab, eval done Osteoarthritis, generalized in his joints, , physical therapy possible Joint pain in toes and feet, being followed per podiatry on an outpatient basis , right great toe has healing wound, covered with Band-Aid Probable sciatica low back pain and difficulty ambulating, Right knee pain with possible effusion and osteoarthritis continue to hold Coumadin, appreciate consultation of orthopedic physician will need pain management in and OP Physical therapy. He needs to be out of bed. PT eval and treat. Would benefit from rehab. Ordered OT eval and treat for [facility] transfer tomorrow Decreased appetite, and not eating much, added boast. with meals tid Constipation, needs to have bowel movement today so he can transition to [facility] tomorrow. Mag citrate bottle 1, INR elevated 4.4 on admission and continues to climb to 5.9, 1 dose of vitamin K given injection, now 3.8. Monitor, no Coumadin for now acute on CKD renal function improving with gentle hydration, PO fluids encouraged CM for dc planning possible inpt rehab, plan is for [facility] tomorrow according to case management Monitor PT INR for stabilization before discharg, can also be monitored from [facility] rehabilitation Patient can follow up with ortho an outpatient for any further injections after rehab focus and strengthing vitals reviewed labs reviewed. Discussed with patient and his Discussed with nurse Discussed with Dr. paul, seen on her behalf (Kyara Mercedes) Assessment and Plan patient seen and examined getting some relief withpo percocet increase percocet d/c i/v dilaudid PT recommends REhab awaiting on [facility] if not [facility] with patient/ at bed side discussed with Kyara discussed with Case management (rUszula Paul MD) Kyara Mercedes April 10, 2017 09:42 Urszula Paul MD April 10, 2017 11:54
[2017-04-10 11:52] VITALS: BP 112/57; PULSE 63; RESP 18; TEMP 97.8; O2SAT 97
[2017-04-10] MEDS ORDERED: OXYC1TAB63 PO (11:56)
[2017-04-10] MEDS: BISACODYL 10 MG SUPP RECTAL SCH (15:15)
[2017-04-10] MEDS ORDERED: MAGNESIUM CITRATE SOLN 300 ML BTL PO ONE (15:15)
[2017-04-10 16:00] VITALS: BP 106/59; PULSE 60; RESP 16; TEMP 97.7; O2SAT 97
[2017-04-10] MEDS: ENALAPRIL MALEATE 2.5 MG TAB PO SCH (21:25)
[2017-04-10] MEDS: DOCUSATE SODIUM 100 MG CAP PO SCH (21:25)
[2017-04-10] MEDS: TAMSULOSIN HCL 0.4 MG CAP PO SCH (21:25)
[2017-04-10 21:31] VITALS: BP 131/65; PULSE 105; RESP 20; TEMP 98.5; O2SAT 96
[2017-04-11 01:12] VITALS: BP 132/60; PULSE 77; RESP 18; TEMP 98.8; O2SAT 98
[2017-04-11] MEDS: oxyCODONE/ACETAMINOPHEN 5 MG/325 MG TAB PO PRN ×2 (03:57→15:25)
[2017-04-11 07:43] VITALS: BP 116/64; PULSE 60; RESP 16; TEMP 97.9; O2SAT 95
[2017-04-11] MEDS: SODIUM CHLORIDE 0.9% FLUSH 10 ML FLUSH IV FLUSH SCH (09:00)
[2017-04-11 09:16] LABS: PROTHROMBIN TIME - PATIENT 22.2 SEC (9.8-11.6)
[2017-04-11] MEDS: EZETIMIBE 10 MG TAB PO SCH (09:38)
[2017-04-11] MEDS: FERROUS SULFATE 325 MG (65 MG ELEMENTAL IRON) TAB PO SCH (09:38)
[2017-04-11] MEDS: PANTOPRAZOLE SOD 40 MG DELAYED RELEASE TAB PO SCH (09:38)
[2017-04-11] MEDS: FINASTERIDE 5 MG TAB PO SCH (09:38)
[2017-04-11] MEDS: ISOSORBIDE MONONITRATE 60 MG TAB PO SCH (09:38)
[2017-04-11] MEDS: BISACODYL 10 MG SUPP RECTAL SCH (09:38)
--- NOTE | 2017-04-11 09:44 | HHI.DCPOC ---
Discharge Care Plan Diagnosis: (1) Atrial fibrillation (2) CAD (coronary artery disease) (3) Osteoarthritis (4) HTN (hypertension) (5) Right knee pain (6) History of colon cancer (7) Supratherapeutic INR (8) Inability to ambulate due to multiple joints (9) Intractable low back pain (10) Tppmp-tr-qcqfvov kidney injury Your Health Problems Are: Difficulty with ADL Goals to Promote Your Health * To prevent worsening of your condition and complications * To maintain your health at the optimal level Directions to Meet Your Goals Take your medications as prescribed Follow your dietary instruction Follow activity as directed Keep your appointments as scheduled Take your immunizations and boosters as scheduled If your symptoms worsen call your PCP, if no PCP go to Urgent Care Center or Emergency Room Smoking is Dangerous to Your Health. Avoid second hand smoke Call the 24-hour hour crisis hotline for domestic abuse at [place] [place]. [facility] April 11, 2017 09:44
[2017-04-11] MEDS ORDERED: WARFARIN SOD 2.5 MG TAB PO SCH ×2 (09:45→16:00)
--- NOTE | 2017-04-11 09:55 | HHI.PR ---
Subjective Subjective Remarks right knee pain when left is lifted low back pain with activity did get out of bed with PT and did fairly well no cp no sob has not had BM, refused supp. Review of Systems Constitutional Constitutional Remarks 12 point ROS completed, negative except as noted above Vitals/Results Intake & Output 04/10/17 04/10/17 04/11/17 15:00 23:00 07:00 Intake Total 960 ml 120 ml Output Total 175 ml Balance -175 ml 960 ml 120 ml Intake Oral 960 ml 120 ml Output Urine Total 175 ml # Voids 2 Vital Signs Vital Signs Date Time Temp Pulse Resp B/P Pulse Ox O2 Delivery O2 Flow Rate FiO2 04/11/17 07:43 97.9 60 16 116/64 95 04/11/17 01:12 98.8 77 18 132/60 98 04/10/17 21:31 98.5 105 20 131/65 96 04/10/17 16:00 97.7 60 16 106/59 97 04/10/17 11:52 97.8 63 18 112/57 97 CBC/BMP: 04/08/17 0434 04/09/17 0641 Lab Results Laboratory Tests Test 04/11/17 08:40 Prothrombin Time 22.2 SEC Prothromb Time International 2.0 RATIO Ratio Physical Exam General General Appearance: Well Developed, Well Nourished, No Acute Distress, Comfortable Eyes Eye Exam: Pupils Equal, Pupils Reactive Ears & Nose Ears & Nose Exam: Nasal Mucosa [place] Throat Throat Exam: Oral Mucosa [place] & Moist Neck Neck Exam: Neck Supple, Trachea Midline Pulmonary Resp Exam: Clear Bilaterally Cardiology CV Exam: Regular, Good Perfusion Gastrointestinal/Abdomen GI Exam: Soft, Non-Tender, Bowel Sounds Present, Non-Distended Musculoskeletal MS Exam: Joints Intact MS Remarks right knee swelling, painful with flexion Integumentary Skin Exam: Warm, Dry Extremeties Extremities Exam: No Edema, Pedal Pulses Palpable Neurologic Neuro Exam: Alert, Awake, Oriented, Speech Clear, Moving All Extremities, No Focal Deficits Psychiatric Psych Exam: Appropriate Responses VTE Prophylaxis VTE Prophylaxis Device: SCDs Assessment/Plan Problem List: (1) Right knee pain (2) Inability to ambulate due to multiple joints (3) Intractable low back pain (4) Osteoarthritis (5) Atrial fibrillation (6) HTN (hypertension) (7) Supratherapeutic INR (8) CAD (coronary artery disease) (9) History of colon cancer (10) Qrcyx-lg-dqabavb kidney injury Assessment/Plan low back pain and difficulty ambulating, also with right knee pain, Hx severe OA CT lumbar spine done, results noted unable to have MRI due to ppm continue with pain management right knee effusion noted, continue with PT. Ortho input appreciated, non surgical management. PT recommended with rehab. Poss epidural injections as OP, would need to be off Coumadin f/u ortho as OP PT working with pt [facility] has accepted. Coumadin held, INR elevated received vit k yesterday INR today 2 resume Coumadin today follow INR daily follow INR daily acute on CKD renal function improving continue with IVF unclear if pt. has underlying renal disease avoid nephrotoxic agents constipation refused suppository Lactulose today CM for dc planning, accepted at [facility] Discharge to [facility] today after he has BM F/U ortho Diet-heart healthy Activity-as tolerated. D/W RN D/W Dr. Paul D/W pt. D/W CM This patient was seen by myself and Dr. Paul, this note is written on his behalf. Discharge Minutes: 45 Problem Qualifiers (1) Right knee pain: Qualified Code: M25.561 - Chronic pain of right knee (2) Osteoarthritis: Qualified Code: M47.816 - Osteoarthritis of lumbar spine, unspecified spinal osteoarthritis complication status (3) Atrial fibrillation: Qualified Code: I48.2 - Chronic atrial fibrillation (4) HTN (hypertension): Qualified Code: I10 - Essential hypertension (5) CAD (coronary artery disease): Qualified Code: I25.10 - Coronary artery disease involving [place] coronary artery of [place] heart without angina pectoris (6) Vpqbl-fo-xmyyzvi kidney injury: Qualified Code: N17.9 - Acute renal failure superimposed on stage 3 chronic kidney disease, unspecified acute renal failure type [facility] April 11, 2017 09:55
[2017-04-11] MEDS ORDERED: LACTULOSE SYRUP 20 GM/30 ML CUP PO ONE (10:00)
--- NOTE | 2017-04-11 10:23 | HHI.DS ---
Discharge Summary Admission Date April 07, 2017 at 14:50 Discharge Date: April 11, 2017 Admitting Diagnosis intractable low back pain, osteoarthritis, unable to ambulate (1) Intractable low back pain (2) Atrial fibrillation (3) CAD (coronary artery disease) (4) Osteoarthritis (5) HTN (hypertension) (6) Right knee pain (7) History of colon cancer (8) Supratherapeutic INR (9) Inability to ambulate due to multiple joints (10) [id number] kidney injury CBC/BMP: 04/08/17 0434 04/09/17 0641 Significant Findings Laboratory Tests Test 04/09/17 04/10/17 04/11/17 06:41 03:45 08:40 Prothrombin Time 70.2 SEC 45.1 SEC 22.2 SEC (9.8-11.6) (9.8-11.6) (9.8-11.6) Blood Urea Nitrogen 32 MG/DL (7-18) Creatinine 1.51 MG/DL (0.60-1.30) Estimat Glomerular Filtration 44 ML/MIN (>89) Rate Imaging Last Impressions Knee X-Ray 04/08/17 0000 Signed Impressions: Service Date/Time: Saturday, April 08, 2017 10:48 - CONCLUSION: 1. Large joint effusion from uncertain etiology. No fracture is seen. 2. Severe tricompartmental osteoarthritis. 3. Severe atherosclerotic calcification. Sudarshan Christianson MD Abdomen/Pelvis CT 04/07/17 1338 Signed Impressions: Service Date/Time: Friday, April 07, 2017 13:43 - CONCLUSION: 1. Bladder diverticula are noted bilaterally including a left diverticulum containing a calcification. 2. Sigmoid diverticulosis. 3. Cirrhosis and portal hypertension suspected with splenomegaly. 4. Atherosclerosis. 5. Right renal cyst. Ervin Mullins MD Lumbar Spine CT 04/07/17 0000 Signed Impressions: Service Date/Time: Friday, April 07, 2017 13:43 - CONCLUSION: 1. Atherosclerosis. 2. Moderate to severe degenerative changes of the spine. Ervin Mullins MD Hospital Course The patient is a very pleasant 87-year male with a past medical history of atrial fibrillation on Coumadin. He also has hypertension and CAD with stenting in the past. And CABG. The patient came to the ER because of severe back pain. The patient's back pain started approximately 2 weeks ago and it is getting worse. It has been getting worse for the past couple of days. It is just a pressure type sensation. It is radiating to the right thigh and right leg. He has a history of peripheral neuropathy. He has less sensation in the lower extremity with some numbness which is usual for him. There is no new numbness or there is no new or extra lack of sensation. Yesterday he could not get into the bed, so they called and a fire production operator put him in the bed. He could not out of the bed this morning. And then they called again and they brought him to the ER. The patient has no other associated symptoms. His back pain is across the back. It is moderate to severe in intensity, radiating to the right side of the leg, mostly in the lateral and the back side. It is on movement as well. Mostly on the sitting but laying down it eased up. There is no other associated symptoms. He has no bowel or bladder incontinence or retention. There is no new numbness or tingling sensation. There is no new weakness. There is no fever or chills. There is no abdominal pain. The patient has a history of colon cancer for which he had a partial colon resection last year. As per he has low grade fever at home a few days ago. But there was no nausea or vomiting or cough or abdominal pain or sore throat. IMAGING Investigation, abdomen and pelvic CT was done which showed bladder diverticula are noted bilaterally including a left diverticulum containing a calcification. Sigmoid diverticulosis. Cirrhosis and portal hypertension splenomegaly. Atherosclerosis. Right renal cyst. CT of the spine was done which showed atherosclerotic, moderate to severe degenerative changes of the spine. LABORATORY DATA Shows PT 47.6. INR 4.1. PTT 52.5. BMP shows sodium 132, BUN 37, creatinine 2.17, GFR 29, random glucose 128. Total bilirubin 1.2, alkaline phosphatase 165, total protein 8.3, albumin 3. WBC 12.2, hemoglobin 12.2, hematocrit 36.9. Pt. was admitted and found with: (1) Right knee pain (2) Inability to ambulate due to multiple joints (3) Intractable low back pain (4) Osteoarthritis (5) Atrial fibrillation (6) HTN (hypertension) (7) Supratherapeutic INR (8) CAD (coronary artery disease) (9) History of colon cancer (10) [id number] kidney injury During the course of the hospitalization, the following took place: Patient was admitted with low back pain and difficulty ambulating, also with right knee pain, Hx severe OA CT lumbar spine done, results noted unable to have MRI due to ppm Put on appropriate pain management Orthopedic consult Complain of increasing right knee pain, x-ray ordered. X-ray showed right knee effusion Ortho input appreciated, non surgical management. PT recommended with rehab. Poss epidural injections as OP, would need to be off Coumadin Patient continued with physical therapy, assisted ambulation Case management consulted for DC planning f/u ortho as OP PT working with pt. patient was able to get out of bed with assistance. Pain was moderately controlled. Coumadin held, INR elevated received vit k yesterday INR today 2 resume some Coumadin follow INR daily acute on CKD C IV fluids, renal function improved. unclear if pt. has underlying renal disease Instructed to avoid nephrotoxic agents Complained of constipation refused suppository Lactulose ordered Put on bowel regimen CM for dc planning, accepted at [facility] Discharge to [facility] today in stable condition. F/U ortho Diet-heart healthy Activity-as tolerated. Pt Condition on Discharge: Stable Discharge Disposition: Rehab Inpatient Discharge Instructions DIET: Follow Instructions for: Heart Healthy Diet Activities you can perform: Weight Bearing as Steven Follow up Referrals: PCP Follow-up New Medications: Oxycodone-Acetaminophen (Oxycodone-Acetaminophen) 5-325 mg Tab 2 TAB PO Q6HR PRN pain 6-10 Days 14 TAB Continued Medications: Enalapril (Enalapril) 2.5 Mg Tab 2.5 MG PO HS #30 Ref 0 TAB Ezetimibe (Zetia) 10 Mg Tab 10 MG PO DAILY #30 Ref 0 TAB Ferrous Sulfate (Iron) 325 Mg Tab 325 MG PO DAILY Take Nutritional Supplement Ref 0 TAB Finasteride (Proscar) 5 Mg Tab 5 MG PO DAILY Do not crush. Manage Prostate Problems #30 Ref 0 TAB Isosorbide Mononitrate ER (Isosorbide Mononitrate ER) 60 Mg Tab 60 MG PO DAILY Prevent Chest Pain #30 Ref 0 TAB Omeprazole (Omeprazole) 40 Mg Cap 40 MG PO DAILY #30 Ref 0 CAP Tamsulosin (Flomax) 0.4 Mg Cap 0.4 MG PO HS Manage Prostate Problems #30 Ref 0 CAP Torsemide (Demadex) 20 Mg Tab 20 MG PO DAILY #30 Ref 0 TAB Discontinued Medications: Warfarin (Coumadin) 2.5 Mg Tab 2.5 MG PO DAILY Prevent Blood Clot #30 Ref 0 TAB Leeanne Franklin [facility] April 11, 2017 10:23
[2017-04-11] MEDS: DOCUSATE SODIUM 100 MG CAP PO SCH (11:24)
[2017-04-11] MEDS: TORSEMIDE 20 MG TAB PO SCH (11:25)
[2017-04-11 11:33] VITALS: BP 120/58; PULSE 60; RESP 16; TEMP 98; O2SAT 98
[2017-04-11 15:38] VITALS: BP 142/80; PULSE 73; RESP 18; TEMP 99.6; O2SAT 97
[2017-04-11 16:45] VITALS: RESP 20
[2017-04-24] MEDS ORDERED: COMMODE 3-IN-11 MIS (14:49)
[2017-04-26] MEDS ORDERED: OMEP40CA2 PO (13:00)
[2017-04-26] MEDS ORDERED: ENAL2.5T PO (13:00)
[2017-04-26] MEDS ORDERED: OXYC1TAB35 PO (13:00)
[2017-04-26] MEDS ORDERED: PROS5TAB PO (13:00)
[2017-04-26] MEDS ORDERED: ZETI10TA5 PO (13:00)
[2017-04-26] MEDS ORDERED: FERR325T20 PO (13:00)
[2017-04-26] MEDS ORDERED: TORS5TAB2 PO (13:00)
[2017-04-26] MEDS ORDERED: TAMS5CAP PO (13:00)
[2017-04-26] MEDS ORDERED: COUM1TAB PO (13:00)
[2017-04-26] MEDS ORDERED: SENN1TAB PO (13:00)
[2017-04-26] MEDS ORDERED: ISOS60TA PO (13:00)
[2017-04-26] MEDS ORDERED: NEUR300C PO (13:00)
[2017-04-26] MEDS ORDERED: GNP5TAB6 PO (13:00)
== END 2017-04-11 17:30 ==
LOC: NEPD 11:43 → NEDA 14:50 → NEPGCP 15:48
PROVIDERS: ADMIT Specialist; ATTEND Specialist
DX: M54.41 Lumbago with sciatica, right side (principal); R26.2 Difficulty in walking, not elsewhere classified; M25.561 Pain in right knee; M15.9 Polyosteoarthritis, unspecified; N17.9 Acute kidney failure, unspecified; M51.36 Other intervertebral disc degeneration, lumbar region; M47.816 Spondylosis without myelopathy or radiculopathy, lumbar region; I25.10 Atherosclerotic heart disease of native coronary artery without angina pectoris; I48.91 Unspecified atrial fibrillation; I12.9 Hypertensive chronic kidney disease with stage 1 through stage 4 chronic kidney disease, or unspecified chronic kidney disease; N18.9 Chronic kidney disease, unspecified; R63.0 Anorexia; K59.00 Constipation, unspecified; G62.9 Polyneuropathy, unspecified; E78.5 Hyperlipidemia, unspecified; R79.1 Abnormal coagulation profile; Z85.038 Personal history of other malignant neoplasm of large intestine; Z79.01 Long term (current) use of anticoagulants; Z95.5 Presence of coronary angioplasty implant and graft; Z95.1 Presence of aortocoronary bypass graft; Z90.49 Acquired absence of other specified parts of digestive tract; Z88.1 Allergy status to other antibiotic agents; Z88.8 Allergy status to other drugs, medicaments and biological substances; Z95.0 Presence of cardiac pacemaker
CPT/HCPCS: 72131; 73564; 74176; 80048; 80053; 81001; 85025; 85610; 85730; 96374; 96375; 97162; 97167; 97530; 99285; G0378; G8987; G8988; J1170; J2270; J3430; J7030

== ENCOUNTER 2017-04-27 23:40 | Inpatient (IN) | payer MEDICARE, BC, OTHER ==
[~2017-04-27] VITALS: Ht 188 cm; Wt 100.0 kg
[~2017-04-27 23:40] MED LIST changes: -ALBUAER3 INH; -ASPI81CH PO; +COMMODE 3-IN-11 MIS; +COUM1TAB PO; -COUM2.5T PO; -FERR1TAB36 PO; +FERR325T20 PO; +GNP5TAB6 PO; +NEUR300C PO; +OXYC1TAB35 PO; +PROS5TAB PO; +SENN1TAB PO; +TAMS5CAP PO; -TORS1TAB12 PO; +TORS5TAB2 PO
[2017-04-27 23:44] VITALS: BP 127/66; PULSE 71; RESP 17; TEMP 99; O2SAT 99
[2017-04-28] VITALS (8 sets, daily range): BP systolic 104–121; BP diastolic 50–64; PULSE 60–77; RESP 16–19; TEMP 97.6–98.4; O2SAT 95–97
[2017-04-28] MEDS ORDERED: MORPHINE SULFATE 4 MG/ML INJ IV PUSH ONE
[2017-04-28 00:18] LABS: BASOPHIL # 0.1 TH/MM3 (0-0.2); BASOPHIL % 0.4 % (0.0-2.0); EOSINOPHIL % 0.2 % (0.0-4.0); HEMATOCRIT 35.6 % (39.0-51.0); LYMPH % 8.3 % (9.0-44.0); LYMPHOCYTE # 1.2 TH/MM3 (1.0-4.8); MEAN CELL VOLUME 88.3 FL (80.0-100.0); MEAN CORPUSCULAR HEMOGLOBIN 29.8 PG (27.0-34.0); MEAN CORPUSCULAR HGB CONC 33.7 % (32.0-36.0); MONO % 7.7 % (0.0-8.0); NEUT % 83.4 % (16.0-70.0); PLATELET COUNT 300 TH/MM3 (150-450); RED BLOOD COUNT 4.04 MIL/MM3 (4.50-5.90); RED CELL DISTRIBUTION WIDTH 14.2 % (11.6-17.2); WHITE BLOOD COUNT 14.4 TH/MM3 (4.0-11.0)
[2017-04-28 00:19] LABS: HEMO FLAGS AUTO DIFF
[2017-04-28 00:42] LABS: ALT (GPT) 20 U/L (12-78); ANION GAP 7 MEQ/L (5-15); AST (GOT) 25 U/L (15-37); BICARBONATE 26.2 MEQ/L (21.0-32.0); BLOOD UREA NITROGEN 62 MG/DL (7-18); CHLORIDE 96 MEQ/L (98-107); GLOMERULAR FILTRATION RATE 22 ML/MIN (>89); POTASSIUM 5.6 MEQ/L (3.5-5.1); SODIUM (NA) 129 MEQ/L (136-145)
[2017-04-28 00:45] LABS: ALKALINE PHOSPHATASE 194 U/L (45-117); TOTAL BILIRUBIN ADULT 1.2 MG/DL (0.2-1.0)
[2017-04-28 00:48] LABS: CREATINE KINASE 30 U/L (39-308)
--- NOTE | 2017-04-28 00:51 | RADRPT ---
EXAM DATE/TIME: 04/28/2017 00:09 [facility] COMPARISON: KNEE RIGHT COMPLETE (4VWS), April 08, 2017, 10:48. INDICATIONS : Continuous right knee pain for greater then a month. MEDICAL HISTORY : Cardiovascular disease. Carcinoma, colon. Hypertension. SURGICAL HISTORY : CABG. ENCOUNTER: Subsequent ACUITY: 1 month PAIN SCORE: 8/10 LOCATION: Right Knee FINDINGS: Osteoarthritic changes present with joint space loss, sclerosis and hypertrophic change greatest in t he lateral compartment. There is fullness in the suprapatellar bursa region consistent with a joint e ffusion. Numerous surgical clips are again noted along the posterior medial soft tissues. CONCLUSION: 1. Severe 3 compartment osteoarthritic change again noted. 2. Joint effusion again noted. Chip Price MD on April 28, 2017 at 0:48 Board Certified Radiologist. This report was verified electronically.
[2017-04-28] MEDS ORDERED: SODIUM CHLORID 0.9% 500 ML INJ 500 ML IV ONE (01:00)
[2017-04-28 01:02] LABS: BANDS 4 % (0-6); BASOPHILS 1 % (0-2); METAMYELOCYTES 1 % (0-1); MYELOCYTES 2 % (0-0); NEUTROPHIL # MANUAL DIFF 12.1 TH/MM3 (1.8-7.7); PLATELET ESTIMATE SMEAR NORMAL (NORMAL); PLATELET MORPHOLOGY NORMAL (NORMAL); POLYS (SEG NEUTROPHILS) 77 % (16-70); SCAN/DIFF FINAL DIFF MANUAL; TOXIC VACUOLATION PRESENT (NONE SEEN); WBC DIFF SAMPLE 100
--- NOTE | 2017-04-28 01:28 | PD ---
HPI Chief Complaint: Back/ Neck Pain or Injury Time Seen by Provider: 23:53 Travel History International Travel<30 days: No Contact w/Intl Traveler<30days: No Traveled to known affect area: No History of Present Illness HPI Patient is an 87-year-old male who comes in complaining of knee and back pain and being unable to get up. He was recently admitted for intractable pain and being unable to walk and was in [facility], discharged yesterday afternoon. He says he was unable to get up out of his chair due to increasing pain in his low back and his right knee. Family states he had an episode of confusion earlier in the day when he was speaking and it didn't make much sense. They say he is back to normal now. He has not had any fever or chills. He denies any shortness of breath or chest pain. He denies any headache. His has not been able to get his prescriptions filled yet. PFSH Past Medical History Hx Anticoagulant Therapy: Yes (PLAVIX , COUMADIN ) Arthritis: Yes Asthma: No Atrial Fibrillation: Yes Blood Disorders: No Anxiety: No Depression: No Heart Rhythm Problems: No Cancer: Yes (colon resection) Cardiac Catheterization: Yes Cardiovascular Problems: Yes High Cholesterol: No Chemotherapy: No Chest Pain: Yes Congestive Heart Failure: No COPD: No Cerebrovascular Accident: No Diabetes: No Diminished Hearing: No Endocrine: No Gastrointestinal Disorders: No GERD: No Glaucoma: No Genitourinary: Yes Hepatitis: No Hiatal Hernia: No Hypertension: Yes Immune Disorder: No Implanted Vascular Access Dvce: Yes Kidney Stones: No Medical other: Yes (NEUROPATHY HANDS AND FEET) Musculoskeletal: Yes Neurologic: Yes Psychiatric: No Reproductive: No Respiratory: No Integumentary: No Migraines: No Radiation Therapy: No Renal Failure: Yes Seizures: No Sickle Cell Disease: No Sleep Apnea: No Thyroid Disease: No Ulcer: No Tetanus Vaccination: < 5 Years ?: Not Past Surgical History Abdominal Surgery: No AICD: No Arteriovenous Shunt: Yes Cardiac Surgery: Yes (stents) Coronary Artery Bypass Graft: Yes (triple in 1988) Coronary Stent: Yes (2003) Ear Surgery: No Endocrine Surgery: No Eye Surgery: Yes (CATARACT SURGERY IN BOTH EYES) Genitourinary Surgery: No Gynecologic Surgery: No Insulin Pump: No Joint Replacement: No Neurologic Surgery: No Oral Surgery: No Pacemaker: Yes Thoracic Surgery: Yes (CABG) Tonsillectomy: Yes (as a child) Other Surgery: Yes (colon resection) Social History Alcohol Use: No Tobacco Use: No Substance Use: No Allergies-Medications (Allergen,Severity, Reaction): Coded Allergies: Amoxicillin (Verified Allergy, Severe, edema, hives, 04/07/17) Duricef (Verified Allergy, Severe, edema, hives, 04/07/17) Atorvastatin (Verified Allergy, Unknown, 04/07/17) Spironolactone (Verified Allergy, Unknown, 04/07/17) Trental (Verified Allergy, Unknown, 04/07/17) Tricor (Verified Allergy, Unknown, 04/07/17) Reported Meds & Prescriptions Reported Meds & Active Scripts Active Neurontin (Gabapentin) 300 Mg Cap 300 Mg PO BID Gnp Melatonin Maximum Str (Melatonin) 5 Mg Tab 5 Mg PO HS PRN Senna Plus 8.6-50 mg (Sennosides-Docusate Sodium) 1 Tab Tab 1 Tab PO BID PRN Coumadin (Warfarin) 1 Mg Tab 1 Mg PO DAILY Ferosul (Ferrous Sulfate) 325 Mg Tablet 325 Mg PO DAILY Oxycodone-Acetaminophen 7.5-325 mg Tab 1 Tab PO Q6H PRN Torsemide 5 Mg Tab 10 Mg PO DAILY Proscar (Finasteride) 5 Mg Tab 5 Mg PO DAILY Do not crush. Flomax (Tamsulosin HCl) 0.4 Mg Cap 0.4 Mg PO HS Zetia (Ezetimibe) 10 Mg Tab 10 Mg PO DAILY Isosorbide Mononitrate ER (Isosorbide Mononitrate) 60 Mg Tab 60 Mg PO DAILY Enalapril (Enalapril Maleate) 2.5 Mg Tab 2.5 Mg PO HS Omeprazole 40 Mg Cap 40 Mg PO DAILY Commode 3-in-1 (Device) 1 Mis Mis 1 Ea .ROUTE DIRECTED Review of Systems Except as stated in HPI: all other systems reviewed are Neg General / Constitutional: No: Fever, Chills HENT: No: Headaches, Lightheadedness Cardiovascular: No: Chest Pain or Discomfort Respiratory: No: Shortness of Breath Gastrointestinal: No: Nausea, Vomiting Musculoskeletal: Positive: Edema, Pain Skin: No Rash, No Change in Pigmentation Physical Exam Narrative GENERAL: Awake and alert, in no acute distress. SKIN: Focused skin assessment warm/dry. HEAD: Atraumatic. Normocephalic. EYES: Pupils equal and round. No scleral icterus. ENT: No nasal bleeding or discharge. Mucous membranes pink and moist. NECK: Trachea midline. No JVD. CARDIOVASCULAR: Regular rate and rhythm. No murmur appreciated. RESPIRATORY: No accessory muscle use. Clear to auscultation. Breath sounds equal bilaterally. GASTROINTESTINAL: Abdomen soft, non-tender, nondistended. MUSCULOSKELETAL: No obvious deformities. No clubbing. No cyanosis. Edema of the right knee. Pain with palpation of the right knee. Unable to bend the right knee due to pain. There is no erythema or warmth of the joint. NEUROLOGICAL: Awake and alert. No obvious cranial nerve deficits. Motor grossly within normal limits. Normal speech. PSYCHIATRIC: Appropriate mood and affect; insight and judgment normal. Data Data Last Documented VS Vital Signs Date Time Temp Pulse Resp B/P Pulse Ox O2 Delivery O2 Flow Rate FiO2 04/28/17 00:36 18 04/27/17 23:44 99.0 71 127/66 99 Orders Complete Blood Count With Diff (04/27/17 23:53) Comprehensive Metabolic Panel (04/27/17 23:53) Knee, Complete (4vws) (04/27/17 ) Morphine Inj (Morphine Inj) (04/28/17 00:00) Creatine Kinase (Cpk) (04/27/17 23:53) Electrocardiogram (04/28/17 ) Sodium Chlorid 0.9% 500 Ml Inj (Ns 500 M (04/28/17 01:00) Labs Laboratory Tests Test 04/28/17 00:05 White Blood Count 14.4 TH/MM3 Red Blood Count 4.04 MIL/MM3 Hemoglobin 12.0 GM/DL Hematocrit 35.6 % Mean Corpuscular Volume 88.3 FL Mean Corpuscular Hemoglobin 29.8 PG Mean Corpuscular Hemoglobin 33.7 % Concent Red Cell Distribution Width 14.2 % Platelet Count 300 TH/MM3 Mean Platelet Volume 7.4 FL Neutrophils (%) (Auto) 83.4 % Lymphocytes (%) (Auto) 8.3 % Monocytes (%) (Auto) 7.7 % Eosinophils (%) (Auto) 0.2 % Basophils (%) (Auto) 0.4 % Neutrophils # (Auto) 12.0 TH/MM3 Lymphocytes # (Auto) 1.2 TH/MM3 Monocytes # (Auto) 1.1 TH/MM3 Eosinophils # (Auto) 0.0 TH/MM3 Basophils # (Auto) 0.1 TH/MM3 CBC Comment AUTO DIFF Differential Total Cells 100 Counted Neutrophils % (Manual) 77 % Band Neutrophils % 4 % Lymphocytes % 9 % Monocytes % 6 % Basophils % 1 % Neutrophils # (Manual) 12.1 TH/MM3 Metamyelocytes 1 % Myelocytes 2 % Differential Comment FINAL DIFF MANUAL Toxic Vacuolation PRESENT Platelet Estimate NORMAL Platelet Morphology Comment NORMAL Red Cell Morphology Comment NORMAL Sodium Level 129 MEQ/L Potassium Level 5.6 MEQ/L Chloride Level 96 MEQ/L Carbon Dioxide Level 26.2 MEQ/L Anion Gap 7 MEQ/L Blood Urea Nitrogen 62 MG/DL Creatinine 2.73 MG/DL Estimat Glomerular Filtration 22 ML/MIN Rate Random Glucose 102 MG/DL Calcium Level 8.7 MG/DL Total Bilirubin 1.2 MG/DL Aspartate Amino Transf 25 U/L (AST/SGOT) Alanine Aminotransferase 20 U/L (ALT/SGPT) Alkaline Phosphatase 194 U/L Total Creatine Kinase 30 U/L Total Protein 7.8 GM/DL Albumin 2.4 GM/DL [facility] Medical Decision Making Medical Screen Exam Complete: Yes Emergency Medical Condition: Yes Interpretation(s) ECG shows a paced rhythm. Differential Diagnosis Arthritis versus chronic pain versus electrolyte abnormality versus dehydration Narrative Course Patient is an 87-year-old male who comes in complaining of severe pain and being unable to walk. Exam shows pain and swelling to the right knee. IV established, labs sent. X-ray of the knee performed shows severe arthritis with joint effusion. Labs show a creatinine of 2.73. This is up from 1.68 the week before. Patient given a small bolus of IV fluids. He'll require admission for acute kidney injury. Diagnosis Primary Impression: [id number] kidney injury Qualified Code: N17.9 - Acute renal failure superimposed on chronic kidney disease, unspecified CKD stage, unspecified acute renal failure type Additional Impressions: Right knee pain Qualified Code: M25.561 - Chronic pain of right knee Osteoarthritis Qualified Code: M17.11 - Osteoarthritis of right knee, unspecified osteoarthritis type Intractable low back pain Admitting Information Admitting Physician Requests: it Sandy Casey MD Apr 28, 2017 01:28
[2017-04-28] MEDS ORDERED: ONDANSETRON HCL 4 MG/2 ML VIAL IVP PRN (01:45)
[2017-04-28] MEDS ORDERED: LACTULOSE SYRUP 20 GM/30 ML CUP PO PRN (01:45)
[2017-04-28] MEDS ORDERED: NALOXONE HCL 0.4 MG/ML AMP IV PRN ×2 (01:45)
[2017-04-28] MEDS ORDERED: MAGNESIUM HYDROXIDE SUSP 30 ML CUP PO PRN (01:45)
[2017-04-28] MEDS ORDERED: ACETAMINOPHEN 325 MG TAB PO PRN (01:45)
[2017-04-28] MEDS ORDERED: SENNOSIDES 8.6 MG TAB PO PRN (01:45)
[2017-04-28] MEDS ORDERED: HYDROmorphone HCL PF 1 MG/ML VIAL IV PRN (01:45)
[2017-04-28] MEDS ORDERED: BISACODYL 10 MG SUPP RECTAL PRN (01:45)
[2017-04-28] MEDS ORDERED: SODIUM CHLORIDE 0.9% FLUSH 10 ML FLUSH IV FLUSH PRN (01:45)
[2017-04-28] MEDS ORDERED: HEPARIN SODIUM - SQ 10,000 UNITS/ML VIAL SQ SCH (01:45)
[2017-04-28] MEDS: SODIUM CHLOR 0.9% 1000 ML INJ 1,000 ML IV SCH ×2 (03:02→14:47)
--- NOTE | 2017-04-28 03:57 | RADRPT ---
EXAM DATE/TIME: 04/28/2017 03:20 [facility] COMPARISON: CT ABDOMEN & PELVIS W/O CONTRAST, April 07, 2017, 13:43. INDICATIONS : Increased BUN/creatinine. MEDICAL HISTORY : Myocardial infarction. Carcinoma, colon. Arthritis. Left sided numbness. Chest pain. TIA. PVD. Afib. Dyspnea. Renal failure. HTN. Clotting problems. Neuropathy hands and feet. Anticoagulant therapy, Co umadin. SURGICAL HISTORY : Tonsillectomy. Coronary artery stent. Pacemaker. Bilateral cataract surgery. CABG. AV shunt. Colon re section. Cardiac cath. ENCOUNTER: Initial ACUITY: 1 day PAIN SCORE: 0/10 LOCATION: Bilateral flank MEASUREMENTS: RIGHT KIDNEY: 11.5 x 6.1 x 6.6 cm LEFT KIDNEY: 14.5 x 5.1 x 7.8 cm FINDINGS: RIGHT KIDNEY: Renal cortex is normal in thickness. There is increased echogenicity compared to the liver. No hydron ephrosis, stone, or solid mass. There is a cyst in the mid kidney measuring 2.4 x 2 x 1.9 cm. LEFT KIDNEY: Renal cortex is normal in thickness. There is increased echogenicity. No hydronephrosis, stone, or so lid mass. There is a small simple cyst in the lower pole measuring 1.4 x 1.7 x 1.2 cm. BLADDER: Normal in size and shape. There is increased echogenicity layering in the dependent portion of the bl adder. This is non-masslike in configuration and demonstrates no color flow. CONCLUSION: 1. No evidence of hydronephrosis. 2. The kidneys are increased in echogenicity consistent with medical renal disease. 3. Echogenic area lying dependently in the bladder. This likely represents debris. Chip Price MD on April 28, 2017 at 3:51 Board Certified Radiologist. This report was verified electronically.
--- NOTE | 2017-04-28 07:36 | HHI.HP ---
HPI Service [facility] Primary Care Physician Gael Purdy MD Admission Diagnosis LORIE Diagnoses: Chief Complaint: right knee pain, difficulty ambulating, confusion Travel History International Travel<30 Days: No Contact w/Intl Traveler <30 Da: No Traveled to Known Affected Are: No History of Present Illness Patient is an 87-year-old elderly male with past medical history of A. fib on Coumadin, hypertension, CAD, OA, neuropathy, CAD status post CABG, cardiac stents in August 2016, pacemaker. Patient presented to the emergency room for evaluation of increasing right knee and back pain and unable to ambulate. also indicated that he was temporarily confused. Patient was discharge from [facility] on 04/27/2017. He was originally admitted on 04/11/2017 for severe low back pain and right knee pain and inability to ambulate and perform ADLs. During rehabilitation, he was evaluated by orthopedic surgeon Dr. Arroyo for the right knee pain and was found with a knee effusion. On 2016, he underwent Right knee arthrocentesis with corticosteroid injection April 20, 2017. According to , patient was taking small steps and was deemed appropriate to go home with home health care and physical therapy. Yesterday, he was discharged around 4 in the afternoon and when she got him home he was not able to get out of the car and he appeared confused and was not making much sense. She called her nephew for assistance and he was brought here to the hospital for further evaluation. Patient is now back to baseline according to , he is oriented 3 and answering questions appropriately. He indicates that he cannot really bend the right knee and doesn't think his cannot be able to manage at home. Review of Dr. Arroyo consultation, indicate there is not much that can be offered other than symptom management as patient has multiple comorbidities and he's not a surgical candidate. Patient and understand this. During this, patient was evaluated. CBC was remarkable for leukocytosis , WBC 14.4. checked his temperature at home and indicates he was running a low-grade fever of 100.4. He denies any cough, no sputum. BMP was remarkable for hyponatremia, sodium 129, potassium 5.6. BUN was 62, creatinine 2.73. Alkaline phosphatase 194. Patient does have underlying renal disease. thinks that he wasn't drinking a lot of water. He is voiding small amounts of concentrated urine. He denies any urinary symptoms. No UA has been collected yet. INR done yesterday was therapeutic, 2.4. Renal ultrasound done shows no hydronephrosis. Knee x-ray shows severe 3 compartment osteo-arthritic changes which are similar to previous x-ray. Joint effusion again noted. At this time, patient is comfortable. He is back to baseline according to and is no longer confused. Patient is admitted for further evaluation and treatment. Review of Systems Constitutional: DENIES: Diaphoretic episodes, Fatigue, Fever, Weight gain, Weight loss, Chills, Dizziness, Change in appetite, Night Sweats Endocrine: DENIES: Heat/cold intolerance, Polydipsia, Polyuria, Polyphagia Eyes: DENIES: Blurred vision, Diplopia, Eye inflammation, Eye pain, Vision loss , Photosensitivity, Double Vision Ears, nose, mouth, throat: DENIES: Tinnitus, Hearing loss, Vertigo, Nasal discharge, Oral lesions, Throat pain, Hoarseness, Ear Pain, Running Nose, Epistaxis, Sinus Pain, Toothache, Odynophagia Respiratory: DENIES: Apneas, Cough, Snoring, Wheezing, Hemoptysis, Sputum production, Shortness of breath Cardiovascular: DENIES: Chest pain, Palpitations, Syncope, Dyspnea on Exertion , PND, Lower Extremity Edema, Orthopnea, Claudication Gastrointestinal: DENIES: Abdominal pain, Black stools, Bloody stools, Constipation, Diarrhea, Nausea, Vomiting, Difficulty Swallowing, Anorexia Genitourinary: DENIES: Sexual dysfunction, Urinary frequency, Urinary incontinence, Urgency, Hematuria, Dysuria, Nocturia, Penile Discharge, Testicular Pain, Testicular Swelling Musculoskeletal: COMPLAINS OF: Joint pain (right knee ), DENIES: Muscle aches , Stiffness, Joint Swelling, Back pain, Neck pain Integumentary: DENIES: Abnormal pigmentation, Nail changes, Pruritus, Rash Immunologic/allergic: DENIES: Eczema, Urticaria Neurologic: DENIES: Abnormal gait, Headache, Localized weakness, Paresthesias, Seizures, Speech Problems, Tremor, Poor Balance Psychiatric: DENIES: Anxiety, Confusion, Mood changes, Depression, Hallucinations, Agitation, Suicidal Ideation, Homicidal Ideation, Delusions Past Family Social History Past Medical History 1. Atrial fibrillation. 2. Hypertension. 3. CAD status post CABG and stent. 4. Arthritis. 5. Hyperlipidemia. 6. Renal insufficiency 7. OA Past Surgical History 1. History of CABG, stents. 2. Partial colon resection. 3. Pacemaker 4. Right knee arthrocentesis with corticosteroid injection April 20, 2017 Reported Medications Reported Meds & Active Scripts Active Neurontin (Gabapentin) 300 Mg Cap 300 Mg PO BID Gnp Melatonin Maximum Str (Melatonin) 5 Mg Tab 5 Mg PO HS PRN Senna Plus 8.6-50 mg (Sennosides-Docusate Sodium) 1 Tab Tab 1 Tab PO BID PRN Coumadin (Warfarin) 1 Mg Tab 1 Mg PO DAILY Ferosul (Ferrous Sulfate) 325 Mg Tablet 325 Mg PO DAILY Oxycodone-Acetaminophen 7.5-325 mg Tab 1 Tab PO Q6H PRN Torsemide 5 Mg Tab 10 Mg PO DAILY Proscar (Finasteride) 5 Mg Tab 5 Mg PO DAILY Do not crush. Flomax (Tamsulosin HCl) 0.4 Mg Cap 0.4 Mg PO HS Zetia (Ezetimibe) 10 Mg Tab 10 Mg PO DAILY Isosorbide Mononitrate ER (Isosorbide Mononitrate) 60 Mg Tab 60 Mg PO DAILY Enalapril (Enalapril Maleate) 2.5 Mg Tab 2.5 Mg PO HS Omeprazole 40 Mg Cap 40 Mg PO DAILY Commode 3-in-1 (Device) 1 Mis Mis 1 Ea .ROUTE DIRECTED Allergies: Coded Allergies: Amoxicillin (Verified Allergy, Severe, edema, hives, 04/28/17) Duricef (Verified Allergy, Severe, edema, hives, 04/28/17) Atorvastatin (Verified Allergy, Unknown, 04/28/17) Spironolactone (Verified Allergy, Unknown, 04/28/17) Trental (Verified Allergy, Unknown, 04/28/17) Tricor (Verified Allergy, Unknown, 04/28/17) Active Ordered Medications Inpatient Medications Acetaminophen (Tylenol) 650 mg Q4H PRN PO TEMP > 100.4; Start 04/28/17 at 01:45 Bisacodyl (Dulcolax Supp) 10 mg DAILY PRN RECTAL SEVERE CONSITIPATION; Start at 01:45 Heparin Sodium (Porcine) (Heparin Inj) 5,000 units Q12H SQ ; Start 04/28/17 at 01:45 Hydromorphone HCl (Dilaudid Pf Inj) 0.8 mg Q3H PRN IV Pain 6-10;if unable to take PO; Start 04/28/17 at 01:45 Lactulose 30 ml 30 ml DAILY PRN PO SEVERE CONSITIPATION; Start 04/28/17 at 01: 45 Magnesium Hydroxide (Milk Of Magnmarely Liq) 30 ml Q12H PRN PO MILD - MODERATE CONSTIPATION; Start 04/28/17 at 01:45 Morphine Sulfate 4 mg 4 mg ONCE ONCE IV PUSH Last administered on 04/28/17 00 :05; Start 04/28/17 at 00:00; Stop 04/28/17 at 00:01; Status DC Naloxone HCl (Narcan Inj) 0.4 mg UNSCH PRN IV SEE LABEL COMMENTS; Start at 01:45; Stop 04/28/17 at 01:58; Status DC Ondansetron HCl (Zofran Inj) 4 mg Q6H PRN IVP NAUSEA OR VOMITING; Start at 01:45 Oxycodone/ Acetaminophen (Percocet 5-325 Mg) 1 tab Q6H PRN PO PAIN SCALE 3 TO 5; Start 04/28/17 at 01:45 Senna/Docusate Sodium (Jaqui-Colace) 1 tab BID PO ; Start 04/28/17 at 09:00 Sennosides (Senokot) 17.2 mg Q12H PRN PO MODERATE - SEVERE CONSTIPATION; Start 04/28/17 at 01:45 Sodium Chloride (NS 1000 ml Inj) 1,000 ml @ 84 mls/hr [id number] IV Last administered on 04/28/17 03:02; Start 04/28/17 at 01:45 Sodium Chloride (NS 500 ml Inj) 500 ml @ 500 mls/hr BOLUS ONCE IV Last administered on 04/28/17 01:17; Start 04/28/17 at 01:00; Stop 04/28/17 at 01:59 ; Status DC Sodium Chloride (NS Flush) 2 ml BID IV FLUSH ; Start 04/28/17 at 09:00 Family History CAD in the family. Mother and father of heart attack. Social History The patient does not smoke or do any drugs. lives with his . Just got out of rehab yesterday. Drinks two [place] three times a week. He has been doing this from the age of 22. Physical Exam Vital Signs Vital Signs Date Time Temp Pulse Resp B/P Pulse Ox O2 Delivery O2 Flow Rate FiO2 04/28/17 03:38 60 04/28/17 02:44 98.0 62 19 117/58 97 04/28/17 01:35 62 16 113/56 97 Room Air 04/28/17 00:36 18 04/27/17 23:44 99.0 71 17 127/66 99 Physical Exam GENERAL: This is a well-nourished, well-developed patient, in no apparent distress. SKIN: No rashes, ecchymoses or lesions. Cool and dry. HEAD: Atraumatic. Normocephalic. No temporal or scalp tenderness. EYES: Pupils equal round and reactive. Extraocular motions intact. No scleral icterus. No injection or drainage. ENT: Nose without bleeding, purulent drainage or septal hematoma. Throat without erythema, tonsillar hypertrophy or exudate. Uvula midline. Airway patent. NECK: Trachea midline. No JVD or lymphadenopathy. Supple, nontender, no meningeal signs. CARDIOVASCULAR: Regular rate and rhythm without murmurs, gallops, or rubs. RESPIRATORY: Clear to auscultation. Breath sounds equal bilaterally. No wheezes , rales, or rhonchi. GASTROINTESTINAL: Abdomen soft, non-tender, nondistended. No hepato-splenomegaly , or palpable masses. No guarding. MUSCULOSKELETAL: Right knee swelling, painful to palpation of anterior patellar. Limited ROM due to pain. No other joint abnormality. NEUROLOGICAL: Awake, oriented x 3. No focal deficits. Speech clear. Laboratory Laboratory Tests Test 04/28/17 00:05 White Blood Count 14.4 Red Blood Count 4.04 Hemoglobin 12.0 Hematocrit 35.6 Mean Corpuscular Volume 88.3 Mean Corpuscular Hemoglobin 29.8 Mean Corpuscular Hemoglobin 33.7 Concent Red Cell Distribution Width 14.2 Platelet Count 300 Mean Platelet Volume 7.4 Neutrophils (%) (Auto) 83.4 Lymphocytes (%) (Auto) 8.3 Monocytes (%) (Auto) 7.7 Eosinophils (%) (Auto) 0.2 Basophils (%) (Auto) 0.4 Neutrophils # (Auto) 12.0 Lymphocytes # (Auto) 1.2 Monocytes # (Auto) 1.1 Eosinophils # (Auto) 0.0 Basophils # (Auto) 0.1 CBC Comment AUTO DIFF Differential Total Cells 100 Counted Neutrophils % (Manual) 77 Band Neutrophils % 4 Lymphocytes % 9 Monocytes % 6 Basophils % 1 Neutrophils # (Manual) 12.1 Metamyelocytes 1 Myelocytes 2 Differential Comment FINAL DIFF MANUAL Toxic Vacuolation PRESENT Platelet Estimate NORMAL Platelet Morphology Comment NORMAL Red Cell Morphology Comment NORMAL Sodium Level 129 Potassium Level 5.6 Chloride Level 96 Carbon Dioxide Level 26.2 Anion Gap 7 Blood Urea Nitrogen 62 Creatinine 2.73 Estimat Glomerular Filtration 22 Rate Random Glucose 102 Calcium Level 8.7 Total Bilirubin 1.2 Aspartate Amino Transf 25 (AST/SGOT) Alanine Aminotransferase 20 (ALT/SGPT) Alkaline Phosphatase 194 Total Creatine Kinase 30 Total Protein 7.8 Albumin 2.4 Result Diagram: 04/28/17 0005 04/28/17 0005 Imaging Last Impressions Renal Ultrasound 04/28/17 0000 Signed Impressions: Service Date/Time: Friday, April 28, 2017 03:20 - CONCLUSION: 1. No evidence of hydronephrosis. 2. The kidneys are increased in echogenicity consistent with medical renal disease. 3. Echogenic area lying dependently in the bladder. This likely represents debris. Chip Price MD Knee X-Ray 04/27/17 0000 Signed Impressions: Service Date/Time: Friday, April 28, 2017 00:09 - CONCLUSION: 1. Severe 3 compartment osteoarthritic change again noted. 2. Joint effusion again noted. Chip Price MD Assessment and Plan Problem List: (1) Altered mental status (2) Mmhto-rb-dgmjrqn kidney injury (3) Right knee pain (4) Osteoarthritis (5) History of colon cancer (6) HTN (hypertension) (7) GERD (gastroesophageal reflux disease) (8) CAD (coronary artery disease) (9) Neuropathy (10) Atrial fibrillation (11) BPH (benign prostatic hyperplasia) (12) HLD (hyperlipidemia) (13) Leukocytosis Assessment and Plan Admit to Dr. Faust 87-year-old elderly male discharge yesterday from [facility], returns to emergency room with confusion, increasing right knee and low back pain. Difficulty ambulating. History of osteoarthritis of the right knee with effusion, status post arthrocentesis and steroid injection on April 20, 2017. Altered mental status, now resolved, likely multifactorial secondary to dehydration and acute renal injury. -Continue with IV fluids We will check a UA rule out infection Continue with neuro checks Right knee pain, recent right knee effusion and steroid injection. Has severe gastroenteritis. -Consult orthopedic surgery, Dr. Arroyo Continue with pain management Physical therapy for evaluation and treatment Acute on chronic kidney injury, possibly secondary to dehydration Hyponatremia Hyperkalemia Continue with IV fluids Renal ultrasound results upon review Follow BMP Avoid nephrotoxic agents Continue to hold DALLIN inhibitor and diuretics Leukocytosis, reported fever at home UA UC pending -Follow CBC in the morning A. fib, has pacemaker pacemaker History of CAD, CABG stents -Continue Coumadin Follow INR BPH Continue home medications Neuropathy Continue home medications Home medications reviewed, initiated as indicated Continue with Coumadin for DVT prophylaxis Physical therapy for evaluation and treatment Case management consultation for discharge planning, patient may need subacute rehabilitation placement. Does not appear that can manage him at home as he she is quite elderly herself. Plan of care has been discussed with the patient, attending and registered nurse. Further management of the patient will be dependent on the hospital course This patient was seen by myself and Dr. Faust, this H&P is written on his behalf Problem Qualifiers (1) Altered mental status: Qualified Code: R40.4 - Transient alteration of awareness (2) Zhzvt-mp-amemueq kidney injury: Qualified Code: N17.9 - Acute renal failure superimposed on chronic kidney disease, unspecified CKD stage, unspecified acute renal failure type (3) Right knee pain: Qualified Code: M25.561 - Chronic pain of right knee (4) Osteoarthritis: Qualified Code: M17.11 - Osteoarthritis of right knee, unspecified osteoarthritis type (5) HTN (hypertension): Qualified Code: I10 - Essential hypertension (6) GERD (gastroesophageal reflux disease): Qualified Code: K21.9 - Gastroesophageal reflux disease, esophagitis presence not specified (7) CAD (coronary artery disease): Qualified Code: I25.10 - Coronary artery disease involving nome coronary artery of nome heart without angina pectoris (8) Atrial fibrillation: Qualified Code: I48.91 - Atrial fibrillation, unspecified type (9) BPH (benign prostatic hyperplasia): Qualified Code: N40.0 - Benign prostatic hyperplasia, presence of lower urinary tract symptoms unspecified (10) HLD (hyperlipidemia): Qualified Code: E78.5 - Hyperlipidemia, unspecified hyperlipidemia type (11) Leukocytosis: Qualified Code: D72.829 - Leukocytosis, unspecified type Leeanne Franklin [facility] Apr 28, 2017 07:36
[2017-04-28] MEDS ORDERED: DOCUSATE SODIUM 50 MG/SENNA 8.6 MG TAB PO PRN (07:45)
[2017-04-28] MEDS ORDERED: MELATONIN 5 MG TAB PO PRN (07:45)
[2017-04-28] MEDS ORDERED: DO NOT ADM ANY ANTICOAGULANT DRUGS OTHER PRN (08:15)
[2017-04-28] MEDS ORDERED: MEDR4PAK PO (08:29)
--- NOTE | 2017-04-28 09:32 | EKG ---
Date Performed: 04/28/2017 Time Performed: 01:14:28 PTAGE: 87 years EKG: ELECTRONIC VENTRICULAR PACEMAKER ABNORMAL RHYTHM ECG PREVIOUS TRACING : 09/10/2016 06.18 DOCTOR: Troy Germain Interpretating Date/Time 04/28/2017 09:28:52
[2017-04-28] MEDS: EZETIMIBE 10 MG TAB PO SCH (09:35)
[2017-04-28] MEDS: GABAPENTIN 300 MG CAP PO SCH ×2 (09:35→20:27)
[2017-04-28] MEDS: PANTOPRAZOLE SOD 40 MG DELAYED RELEASE TAB PO SCH (09:35)
[2017-04-28] MEDS: FINASTERIDE 5 MG TAB PO SCH (09:36)
[2017-04-28] MEDS: DOCUSATE SODIUM 50 MG/SENNA 8.6 MG TAB PO SCH ×2 (09:36→20:27)
[2017-04-28] MEDS: FERROUS SULFATE 325 MG (65 MG ELEMENTAL IRON) TAB PO SCH (09:36)
[2017-04-28] MEDS: SODIUM CHLORIDE 0.9% FLUSH 10 ML FLUSH IV FLUSH SCH ×2 (09:36→20:27)
[2017-04-28] MEDS: ISOSORBIDE MONONITRATE 60 MG TAB PO SCH (09:36)
[2017-04-28] MEDS: oxyCODONE/ACETAMINOPHEN 5 MG/325 MG TAB PO PRN ×2 (10:48→20:32)
--- NOTE | 2017-04-28 10:59 | HHI.FF ---
Face to Face Verification Diagnosis: (1) Altered mental status (2) Right knee pain Physical Therapy Order: Evaluate and Treat Home Health Nursing Order: Medical education Nursing assessment with vital signs [employer] Counter[employer] Order: To Evaluate: Support services Order: To Provide: Community services I have seen patient Celestino Chamorro on 04/28/17. My clinical findings support the need for the requested home health care services because: Ltd mobility - disease progression Limited ability to care for self Need for psychosocial assistance High risk of falls I certify that my clinical findings support that this patient is homebound because: Unsteady gait/balance Unsafe to leave home unassisted [id number]-oqluhwke bed/chair Unable to use public transportation Leeanne Franklin [facility] Apr 28, 2017 10:59
[2017-04-28 14:17] LABS: BACTERIA, URINE MANY /hpf; BLOOD, URINE MOD (NEG); COMMENT (UR) CULTURE INDICATED; CULTURE IF INDICATED CULTURE INDICATED; GLUCOSE,URINE NEG (NEG); KETONE, URINE NEG (NEG); NITRITE,URINE POS (NEG); PH, URINE 5.5 (5.0-8.5); URINE COLOR YELLOW (YELLW/STRAW)
--- NOTE | 2017-04-28 14:20 | MB ---
cc: DARLIN DILL DATE OF CONSULTATION: 04/28/2017 CHIEF COMPLAINT Right knee pain. HISTORY OF PRESENT ILLNESS The patient is a 87-year-old elderly man who presents today with significant history of bilateral knee pain. He states that he was recently in [facility] where he was seen by Dr. Arroyo where he states that his left knee was aspirated and injected. However, the notes from Dr. Arroyo report that it was his right knee that was injected. He was discharged yesterday from rehab and was immediately brought back to the emergency department. His reports that when she got him home he was not able to walk and started developing significant confusion. She states that the confusion did not resolve so she brought him to the emergency department. X-rays were performed of the right knee. He states that he is unable to walk due to pain in both knees. He states his right is worse than his left. He states that he cannot lift it or bend it without significant pain. He describes cracking and popping within the knees. He denies any numbness, tingling or radiation of symptoms. He is currently being kept in observation for his multiple medical issues and his confusion. REVIEW OF SYSTEMS A nine point review of systems negative except for what is noted in the HPI. PAST MEDICAL HISTORY Positive for: 1. Atrial fibrillation. 2. Hypertension. 3. Coronary artery disease status post CABG and stent. 4. Arthritis. 5. Hyperlipidemia. 6. Renal insufficiency. PAST SURGICAL HISTORY 1. History of coronary artery bypass grafting with stents. 2. Partial colon resection. 3. Pacemaker. 4. Right knee arthrocentesis with injection on April [address] Arroyo. MEDICATIONS For a complete list of medications please see the EMR. ALLERGIES 1. AMOXICILLIN. 2. DURICEF. 3. ATORVASTATIN. 4. SPIRONOLACTONE. 5. TRENTAL. 6. TRICOR. FAMILY HISTORY History of coronary artery disease. SOCIAL HISTORY Does not smoke or do any drugs. He is and lives with his and he drinks occasional alcohol. PHYSICAL EXAMINATION VITAL SIGNS: Temperature 99.0, pulse 71, respiratory rate 17, blood pressure 127/66, O2 saturation 99 on room air. GENERAL: Well-developed, well-nourished white male in mild amount of distress. HEAD: Normocephalic, atraumatic. EARS: Hearing intact bilaterally. EYES: Extraocular motions intact. Pupils are equal, round, reactive to light. CRANIAL NERVES: Cranial nerves II-XII are grossly intact. NECK: Supple, no evidence of lymphadenopathy. LUNGS: No use of accessory muscles while breathing and no audible wheezes present at bedside. HEART: No grade 4 murmur present. ABDOMEN: Soft, nontender. MUSCULOSKELETAL: Right lower extremity: Full motion of the hip, ankle and toes with no pain. However, the patient has significant difficulty raising the leg due to knee pain. He has tenderness to palpation over the medial joint line as well as mobilization of the patella. He has limited motion of the knee secondary to stiffness and pain. I am only able to achieve range of motion from 0 to 10 degrees. There is noticeable crepitus within the joint itself. He does have full sensation distally. Left lower extremity: The patient has no pain of the hip, ankle or toes with motion. He is able to perform active leg lift. He is nontender to palpation of the knee. He does have range of motion from 0 to 45 degrees before pain is experienced. He has noticeable crepitus with movement of the knee. He has full sensation distally. Bilateral upper extremities: Full motion of the shoulders, elbows, wrists and fingers, no pain with full sensation. IMAGING STUDIES X-rays of the right knee were reviewed which show severe tricompartmental osteoarthritis of the right knee. ASSESSMENT Osteoarthritis bilateral knees. PLAN At this point this is something that should be managed conservatively and on a nonemergent basis. I informed the patient that he needs to be on anti-inflammatories. However, he is unable to do so due to being on Coumadin. He could potentially benefit from a steroid injection. However, he received one April 20 which is too soon to repeat a steroid injection. He may benefit from Medrol Dosepak of steroids. However, keep him in the hospital as he is going to be kept overnight for observation. Therefore, I will defer to Dr. Malik Arroyo for followup treatment. I will inform his team and he can be seen in the hospital if needed by Dr. Arroyo. Otherwise, he will follow up on an outpatient basis with Dr. Arroyo for treatment of knee arthritis. Thank you for this consultation. The above patient and dictation was reviewed with Dr. Dill and he agrees with the above dictation. DICTATED BY: Loi Arnold PA-C Loi GAMA /8:28 AM /2:22 PM
[2017-04-28] MEDS ORDERED: WARFARIN SOD 1 MG TAB PO SCH (16:00)
[2017-04-28] MEDS: TAMSULOSIN HCL 0.4 MG CAP PO SCH (20:27)
[2017-04-28] MEDS: CIPROFLOXACIN 250 MG TAB PO SCH (20:27)
[2017-04-29] MEDS: SODIUM CHLOR 0.9% 1000 ML INJ 1,000 ML IV SCH ×2 (01:35→14:23)
[2017-04-29 01:45] VITALS: BP 131/67; PULSE 77; RESP 18; TEMP 98; O2SAT 98
[2017-04-29] MEDS: oxyCODONE/ACETAMINOPHEN 5 MG/325 MG TAB PO PRN (03:26)
[2017-04-29 04:57] LABS: AUTOMATED NEUTROPHIL # 6.4 TH/MM3 (1.8-7.7); BASOPHIL % 0.3 % (0.0-2.0); EOSINOPHIL # 0.1 TH/MM3 (0-0.4); EOSINOPHIL % 1.5 % (0.0-4.0); HEMATOCRIT 30.8 % (39.0-51.0); LYMPH % 11.8 % (9.0-44.0); MEAN CELL VOLUME 87.6 FL (80.0-100.0); MEAN CORPUSCULAR HEMOGLOBIN 29.8 PG (27.0-34.0); MEAN CORPUSCULAR HGB CONC 34.1 % (32.0-36.0); MONO % 7.7 % (0.0-8.0); NEUT % 78.7 % (16.0-70.0); PLATELET COUNT 220 TH/MM3 (150-450); RED BLOOD COUNT 3.51 MIL/MM3 (4.50-5.90); RED CELL DISTRIBUTION WIDTH 14.7 % (11.6-17.2); WHITE BLOOD COUNT 8.1 TH/MM3 (4.0-11.0)
[2017-04-29 04:59] LABS: HEMO FLAGS AUTO DIFF
[2017-04-29 05:08] LABS: INTERNATIONAL NORMALIZED RATIO 2.1 RATIO
[2017-04-29 05:21] LABS: BICARBONATE 24.9 MEQ/L (21.0-32.0); POTASSIUM 5.7 MEQ/L (3.5-5.1)
[2017-04-29] MEDS: ISOSORBIDE MONONITRATE 60 MG TAB PO SCH (06:04)
[2017-04-29 06:57] LABS: OVALOCYTES 1+ (NORMAL); SCAN/DIFF AUTO DIFF CONFIRMED
[2017-04-29] MEDS ORDERED: SODIUM POLYSTYRENE SULFONATE SUSP 15 GM/60 ML CUP PO ONE ×2 (07:45→12:00)
--- NOTE | 2017-04-29 07:46 | HHI.PR ---
Subjective Remarks still with right knee pain no cp no sob no fever wants to talk to Dr. Arroyo about poss treatment options not sure he wants to go back to rehab Objective Objective Results - Vital Signs Date Time Temp Pulse Resp B/P Pulse Ox O2 Delivery O2 Flow Rate FiO2 04/29/17 01:45 98.0 77 18 131/67 98 04/28/17 23:40 60 04/28/17 20:41 98.4 77 18 121/64 97 04/28/17 16:16 98.2 60 18 110/50 95 04/28/17 11:52 97.8 60 18 104/51 96 04/28/17 08:19 97.6 60 18 120/60 97 I/O 04/28/17 04/28/17 04/28/17 04/29/17 04/29/17 04/29/17 07:00 15:00 23:00 07:00 15:00 23:00 Intake Total 492 ml Output Total 500 ml Balance 492 ml -500 ml Intake Oral 240 ml IV Total 252 ml Output Urine Total 500 ml # Voids 1 # Bowel Movements 1 Result Diagram: 04/29/17 0435 04/29/17 0435 Imaging Last Impressions Renal Ultrasound 04/28/17 0000 Signed Impressions: Service Date/Time: Friday, April 28, 2017 03:20 - CONCLUSION: 1. No evidence of hydronephrosis. 2. The kidneys are increased in echogenicity consistent with medical renal disease. 3. Echogenic area lying dependently in the bladder. This likely represents debris. Chip Price MD Knee X-Ray 04/27/17 0000 Signed Impressions: Service Date/Time: Friday, April 28, 2017 00:09 - CONCLUSION: 1. Severe 3 compartment osteoarthritic change again noted. 2. Joint effusion again noted. Chip Price MD Other Results Laboratory Tests Test 04/28/17 04/29/17 13:59 04:35 Urine Color YELLOW Urine Turbidity CLOUDY Urine pH 5.5 Urine Specific [place] 1.015 Urine Protein 30 Urine Glucose (UA) NEG Urine Ketones NEG Urine Occult Blood MOD Urine Nitrite POS Urine Bilirubin NEG Urine Urobilinogen 2.0 Urine Leukocyte Esterase LARGE Urine RBC 174 Urine WBC Urine WBC Clumps MANY Urine Bacteria MANY Microscopic Urinalysis Comment CULTURE INDICATED White Blood Count 8.1 Red Blood Count 3.51 Hemoglobin 10.5 Hematocrit 30.8 Mean Corpuscular Volume 87.6 Mean Corpuscular Hemoglobin 29.8 Mean Corpuscular Hemoglobin 34.1 Concent Red Cell Distribution Width 14.7 Platelet Count 220 Mean Platelet Volume 6.9 Neutrophils (%) (Auto) 78.7 Lymphocytes (%) (Auto) 11.8 Monocytes (%) (Auto) 7.7 Eosinophils (%) (Auto) 1.5 Basophils (%) (Auto) 0.3 Neutrophils # (Auto) 6.4 Lymphocytes # (Auto) 1.0 Monocytes # (Auto) 0.6 Eosinophils # (Auto) 0.1 Basophils # (Auto) 0.0 CBC Comment AUTO DIFF Differential Comment AUTO DIFF CONFIRMED Ovalocytes 1+ Prothrombin Time 24.0 Prothromb Time International 2.1 Ratio Sodium Level 135 Potassium Level 5.7 Chloride Level 104 Carbon Dioxide Level 24.9 Anion Gap 6 Blood Urea Nitrogen 45 Creatinine 1.72 Estimat Glomerular Filtration 38 Rate Random Glucose 96 Calcium Level 8.4 Date/Time Procedure Status Source Growth 04/28/17 13:59 Urine Culture Received Urine Clean Catch Pending ROS General: No: Fatigue, Weakness HEENT: No: Sore Throat, Dysphagia Cardiac: No: Chest Pain, Edema, Palpitations Pulmonary: No: Cough, SOB, Wheezing GI: No: Abdominal Pain, BM, Diarrhea, N/V /CHIEF STATION ENGINEER: No: Dysuria, Urgency Neuro/MS: Other (KNEE PAIN ), No: Lightheaded, Confusion Psych: No: Anxiety, Depression Skin: No: Itching, Rash Physical Exam Physical Exam GENERAL: This is a well-nourished, well-developed patient, in no apparent distress. SKIN: No rashes, ecchymoses or lesions. Cool and dry. HEAD: Atraumatic. Normocephalic. No temporal or scalp tenderness. EYES: Pupils equal round and reactive. Extraocular motions intact. No scleral icterus. No injection or drainage. ENT: Nose without bleeding, purulent drainage or septal hematoma. Throat without erythema, tonsillar hypertrophy or exudate. Uvula midline. Airway patent. NECK: Trachea midline. No JVD or lymphadenopathy. Supple, nontender, no meningeal signs. CARDIOVASCULAR: Regular rate and rhythm without murmurs, gallops, or rubs. RESPIRATORY: Clear to auscultation. Breath sounds equal bilaterally. No wheezes , rales, or rhonchi. GASTROINTESTINAL: Abdomen soft, non-tender, nondistended. No hepato-splenomegaly , or palpable masses. No guarding. MUSCULOSKELETAL: Right knee swelling, painful to palpation of anterior patellar. Limited ROM due to pain. No other joint abnormality. NEUROLOGICAL: Awake, oriented x 3. No focal deficits. Speech clear. Urinary Catheter: No Vascular Central Line Catheter: No A/P Diagnosis: (1) Altered mental status (2) Tifwk-ir-mebbhvn kidney injury (3) Right knee pain (4) Osteoarthritis (5) History of colon cancer (6) HTN (hypertension) (7) GERD (gastroesophageal reflux disease) (8) CAD (coronary artery disease) (9) Neuropathy (10) Atrial fibrillation (11) BPH (benign prostatic hyperplasia) (12) HLD (hyperlipidemia) (13) Leukocytosis Assessment and Plan 87-year-old elderly male discharge yesterday from [facility], returns to emergency room with confusion, increasing right knee and low back pain. Difficulty ambulating. History of osteoarthritis of the right knee with effusion, status post arthrocentesis and steroid injection on April 20, 2017. Altered mental status, now resolved, likely multifactorial secondary to dehydration and acute renal injury. Improved, oriented x 3 -Continue with IV fluids UA + UTI, started on Cipro 250 mg PO BID Continue with neuro checks Right knee pain, recent right knee effusion and steroid injection. Has severe OA pt. states both knees painful but right worst. -Consult orthopedic surgery, Dr. Arroyo, to see today. PA saw yesterday, unable to have steroid injection, too soon. Continue with pain management Physical therapy for evaluation and treatment, recommends SNF or [facility] with PT Acute on chronic kidney injury, possibly secondary to dehydration Hyponatremia Hyperkalemia Continue with IV fluids Renal ultrasound results reviewed, no obstruction Avoid nephrotoxic agents Continue to hold DALLIN inhibitor and diuretics -K 5.7 today, not on supplements. Will give Kayaxalate x 1 today -BMP tomorrow -Na improved, 135, renal function improving Leukocytosis, reported fever at home -+ UTI, UC pending A. fib, has pacemaker pacemaker History of CAD, CABG stents -Continue Coumadin Follow INR, therapeutic -pharmacy for dosing BPH Continue home medications Neuropathy Continue home medications Continue with Coumadin for DVT prophylaxis Physical therapy for evaluation and treatment Case management consultation for discharge planning, patient may need subacute rehabilitation placement. Does not appear that can manage him at home as he she is quite elderly herself. Pt. not sure about SNF. CM to eval for both C and SNF Hopefully dc today or tomorrow after Dr. Arroyo makes recommendationg Labs in am D/W RN D/W Dr. Faust D/W pt This patient was seen by myself and Dr. Faust, this note is written on his behalf Problem Qualifiers (1) Altered mental status: Qualified Code: R40.4 - Transient alteration of awareness (2) Skbsh-ft-toqobmo kidney injury: Qualified Code: N17.9 - Acute renal failure superimposed on chronic kidney disease, unspecified CKD stage, unspecified acute renal failure type (3) Right knee pain: Qualified Code: M25.561 - Chronic pain of right knee (4) Osteoarthritis: Qualified Code: M17.11 - Osteoarthritis of right knee, unspecified osteoarthritis type (5) HTN (hypertension): Qualified Code: I10 - Essential hypertension (6) GERD (gastroesophageal reflux disease): Qualified Code: K21.9 - Gastroesophageal reflux disease, esophagitis presence not specified (7) CAD (coronary artery disease): Qualified Code: I25.10 - Coronary artery disease involving [place] coronary artery of [place] heart without angina pectoris (8) Atrial fibrillation: Qualified Code: I48.91 - Atrial fibrillation, unspecified type (9) BPH (benign prostatic hyperplasia): Qualified Code: N40.0 - Benign prostatic hyperplasia, presence of lower urinary tract symptoms unspecified (10) HLD (hyperlipidemia): Qualified Code: E78.5 - Hyperlipidemia, unspecified hyperlipidemia type (11) Leukocytosis: Qualified Code: D72.829 - Leukocytosis, unspecified type Leeanne Franklin Apr 29, 2017 07:46
[2017-04-29 07:56] VITALS: BP 130/60; PULSE 61; RESP 18; TEMP 98
[2017-04-29] MEDS: SODIUM CHLORIDE 0.9% FLUSH 10 ML FLUSH IV FLUSH SCH ×2 (09:00→20:28)
[2017-04-29] MEDS: FERROUS SULFATE 325 MG (65 MG ELEMENTAL IRON) TAB PO SCH (10:13)
[2017-04-29] MEDS: PANTOPRAZOLE SOD 40 MG DELAYED RELEASE TAB PO SCH (10:13)
[2017-04-29] MEDS: CIPROFLOXACIN 250 MG TAB PO SCH ×2 (10:13→20:31)
[2017-04-29] MEDS: FINASTERIDE 5 MG TAB PO SCH (10:14)
[2017-04-29] MEDS: GABAPENTIN 300 MG CAP PO SCH ×2 (10:14→20:28)
[2017-04-29] MEDS: EZETIMIBE 10 MG TAB PO SCH (10:14)
[2017-04-29] MEDS: DOCUSATE SODIUM 50 MG/SENNA 8.6 MG TAB PO SCH ×2 (10:14→20:28)
[2017-04-29 11:48] VITALS: PULSE 62
[2017-04-29 11:54] VITALS: BP 139/56; PULSE 63; RESP 18; TEMP 98.7; O2SAT 98
--- NOTE | 2017-04-29 15:35 | HHI.DCPOC ---
Discharge Care Plan Diagnosis: (1) History of colon cancer (2) HTN (hypertension) (3) HLD (hyperlipidemia) (4) GERD (gastroesophageal reflux disease) (5) Altered mental status (6) Neuropathy (7) Nrtyc-af-handeyi kidney injury (8) BPH (benign prostatic hyperplasia) (9) Right knee pain Your Health Problems Are: Anxiety Difficulty with ADL Swelling Leg Swelling Goals to Promote Your Health * To prevent worsening of your condition and complications * To maintain your health at the optimal level Directions to Meet Your Goals Take your medications as prescribed Follow your dietary instruction Follow activity as directed Keep your appointments as scheduled Take your immunizations and boosters as scheduled If your symptoms worsen call your PCP, if no PCP go to Urgent Care Center or Emergency Room Smoking is Dangerous to Your Health. Avoid second hand smoke Call the 24-hour hour crisis hotline for domestic abuse at Leeanne Franklin. [facility] Apr 29, 2017 15:35
[2017-04-29 17:52] VITALS: BP 149/55; PULSE 61; RESP 18; TEMP 98.7; O2SAT 98
[2017-04-29] MEDS: TAMSULOSIN HCL 0.4 MG CAP PO SCH (20:28)
[2017-04-29 20:39] VITALS: BP 151/78; PULSE 77; RESP 18; TEMP 97.6; O2SAT 97
[2017-04-30] MEDS: oxyCODONE/ACETAMINOPHEN 5 MG/325 MG TAB PO PRN (03:56)
[2017-04-30] MEDS: SODIUM CHLOR 0.9% 1000 ML INJ 1,000 ML IV SCH (03:57)
[2017-04-30 03:59] VITALS: BP 143/69; PULSE 77; RESP 16; TEMP 97.8; O2SAT 93
--- NOTE | 2017-04-30 07:26 | HHI.PR ---
Subjective Remarks no acute changes overnight no fever agreeable with going to SNF was able to sit on edge of bed yesterday still with right knee pain Objective Objective Results - Vital Signs Date Time Temp Pulse Resp B/P Pulse Ox O2 Delivery O2 Flow Rate FiO2 04/30/17 03:59 97.8 77 16 143/69 93 04/29/17 20:39 97.6 77 18 151/78 97 04/29/17 17:52 98.7 61 18 149/55 98 04/29/17 11:54 98.7 63 18 139/56 98 04/29/17 11:48 62 04/29/17 07:56 98.0 61 18 130/60 I/O 04/29/17 04/29/17 04/29/17 04/30/17 04/30/17 04/30/17 07:00 15:00 23:00 07:00 15:00 23:00 Intake Total 1000 ml Output Total 500 ml 2250 ml Balance -500 ml -1250 ml Intake Oral 1000 ml Output Urine Total 500 ml 750 ml Stool Total 1500 ml # Bowel Movements 1 Result Diagram: 04/29/17 0435 04/29/17 0435 Imaging Last Impressions Renal Ultrasound 04/28/17 0000 Signed Impressions: Service Date/Time: Friday, April 28, 2017 03:20 - CONCLUSION: 1. No evidence of hydronephrosis. 2. The kidneys are increased in echogenicity consistent with medical renal disease. 3. Echogenic area lying dependently in the bladder. This likely represents debris. Chip Price MD Knee X-Ray 04/27/17 0000 Signed Impressions: Service Date/Time: Friday, April 28, 2017 00:09 - CONCLUSION: 1. Severe 3 compartment osteoarthritic change again noted. 2. Joint effusion again noted. Chip Price MD Other Results Date/Time Procedure Status Source Growth 04/28/17 13:59 Urine Culture - Preliminary Resulted Urine Clean Catch Gram Negative Erik ROS General: No: Fatigue, Weakness HEENT: No: Sore Throat, Dysphagia Cardiac: No: Chest Pain, Edema, Palpitations Pulmonary: No: Cough, SOB, Wheezing GI: No: Abdominal Pain, BM, Diarrhea, N/V /DIRECTOR OF QUALITY IMPROVEMENT: No: Dysuria, Urgency Neuro/MS: Other (right knee pain ) Psych: No: Anxiety, Depression Skin: No: Itching, Rash Physical Exam Physical Exam GENERAL: This is a well-nourished, well-developed patient, in no apparent distress. SKIN: No rashes, ecchymoses or lesions. Cool and dry. HEAD: Atraumatic. Normocephalic. No temporal or scalp tenderness. EYES: Pupils equal round and reactive. Extraocular motions intact. No scleral icterus. No injection or drainage. ENT: Nose without bleeding, purulent drainage or septal hematoma. Throat without erythema, tonsillar hypertrophy or exudate. Uvula midline. Airway patent. NECK: Trachea midline. No JVD or lymphadenopathy. Supple, nontender, no meningeal signs. CARDIOVASCULAR: Regular rate and rhythm without murmurs, gallops, or rubs. RESPIRATORY: Clear to auscultation. Breath sounds equal bilaterally. No wheezes , rales, or rhonchi. GASTROINTESTINAL: Abdomen soft, non-tender, nondistended. No hepato-splenomegaly , or palpable masses. No guarding. MUSCULOSKELETAL: Right knee swelling, painful to palpation of anterior patellar. Limited ROM due to pain. No other joint abnormality. NEUROLOGICAL: Awake, oriented x 3. No focal deficits. Speech clear. Urinary Catheter: No Vascular Central Line Catheter: No A/P Diagnosis: (1) Altered mental status (2) Zndwo-rd-koqskly kidney injury (3) Right knee pain (4) Osteoarthritis (5) History of colon cancer (6) HTN (hypertension) (7) GERD (gastroesophageal reflux disease) (8) CAD (coronary artery disease) (9) Neuropathy (10) Atrial fibrillation (11) BPH (benign prostatic hyperplasia) (12) HLD (hyperlipidemia) (13) Leukocytosis Assessment and Plan 87-year-old elderly male discharge yesterday from [facility], returns to emergency room with confusion, increasing right knee and low back pain. Difficulty ambulating. History of osteoarthritis of the right knee with effusion, status post arthrocentesis and steroid injection on April 20, 2017. Altered mental status, now resolved, likely multifactorial secondary to dehydration and acute renal injury. Improved, oriented x 3 UA + UTI, continue Cipro 250 mg PO BID, sens. not back yet Right knee pain, recent right knee effusion and steroid injection. Has severe OA pt. states both knees painful but right worst. -Consult orthopedic surgery, Dr. Arroyo. No further interventions, recommends f/ u as OP. Can start Medrol dose pack at [facility] Continue with pain management Physical therapy for evaluation and treatment, OOB today Acute on chronic kidney injury, possibly secondary to dehydration Hyponatremia Hyperkalemia Continue with IV fluids Renal ultrasound results reviewed, no obstruction Avoid nephrotoxic agents Continue to hold DALLNI inhibitor and diuretics -K 5.7 given Kayaxalate x 1 yesterday -Labs pending Leukocytosis, reported fever at home -+ UTI, UC pending A. fib, has pacemaker pacemaker History of CAD, CABG stents -Continue Coumadin Follow INR, therapeutic -pharmacy for dosing BPH Continue home medications Neuropathy Continue home medications Continue with Coumadin for DVT prophylaxis Physical therapy for evaluation and treatment has been accepted at [facility] waiting for sens for abx, labs pending plan to dc today f/u ortho 1-2 weeks f/u PCP Diet-heart healthy Activity-as tolerated D/W RN D/W Dr. Faust D/W pt D/W CM This patient was seen by myself and Dr. Faust, this note is written on his behalf Problem Qualifiers (1) Altered mental status: Qualified Code: R40.4 - Transient alteration of awareness (2) Sagno-hh-qesxkga kidney injury: Qualified Code: N17.9 - Acute renal failure superimposed on chronic kidney disease, unspecified CKD stage, unspecified acute renal failure type (3) Right knee pain: Qualified Code: M25.561 - Chronic pain of right knee (4) Osteoarthritis: Qualified Code: M17.11 - Osteoarthritis of right knee, unspecified osteoarthritis type (5) HTN (hypertension): Qualified Code: I10 - Essential hypertension (6) GERD (gastroesophageal reflux disease): Qualified Code: K21.9 - Gastroesophageal reflux disease, esophagitis presence not specified (7) CAD (coronary artery disease): Qualified Code: I25.10 - Coronary artery disease involving [place] coronary artery of [place] heart without angina pectoris (8) Atrial fibrillation: Qualified Code: I48.91 - Atrial fibrillation, unspecified type (9) BPH (benign prostatic hyperplasia): Qualified Code: N40.0 - Benign prostatic hyperplasia, presence of lower urinary tract symptoms unspecified (10) HLD (hyperlipidemia): Qualified Code: E78.5 - Hyperlipidemia, unspecified hyperlipidemia type (11) Leukocytosis: Qualified Code: D72.829 - Leukocytosis, unspecified type Leeanne Franklin Apr 30, 2017 07:26
[2017-04-30 07:40] VITALS: BP 144/67; PULSE 60; RESP 18; TEMP 98; O2SAT 96
[2017-04-30 07:59] LABS: PROTHROMBIN TIME - PATIENT 22.5 SEC (9.8-11.6)
[2017-04-30 08:01] LABS: HEMATOCRIT 30.6 % (39.0-51.0); MEAN CELL VOLUME 89.3 FL (80.0-100.0); MEAN CORPUSCULAR HEMOGLOBIN 28.9 PG (27.0-34.0); MEAN CORPUSCULAR HGB CONC 32.3 % (32.0-36.0); PLATELET COUNT 204 TH/MM3 (150-450); RED BLOOD COUNT 3.43 MIL/MM3 (4.50-5.90); RED CELL DISTRIBUTION WIDTH 14.3 % (11.6-17.2); REVIEW FLAG FINAL; WHITE BLOOD COUNT 7.9 TH/MM3 (4.0-11.0)
[2017-04-30] MEDS: GABAPENTIN 300 MG CAP PO SCH (08:08)
[2017-04-30] MEDS: FERROUS SULFATE 325 MG (65 MG ELEMENTAL IRON) TAB PO SCH (08:09)
[2017-04-30] MEDS: SODIUM CHLORIDE 0.9% FLUSH 10 ML FLUSH IV FLUSH SCH (08:09)
[2017-04-30] MEDS: FINASTERIDE 5 MG TAB PO SCH (08:09)
[2017-04-30] MEDS: EZETIMIBE 10 MG TAB PO SCH (08:09)
[2017-04-30] MEDS: PANTOPRAZOLE SOD 40 MG DELAYED RELEASE TAB PO SCH (08:09)
[2017-04-30] MEDS: ISOSORBIDE MONONITRATE 60 MG TAB PO SCH (08:09)
[2017-04-30] MEDS: CIPROFLOXACIN 250 MG TAB PO SCH (08:09)
[2017-04-30] MEDS: DOCUSATE SODIUM 50 MG/SENNA 8.6 MG TAB PO SCH (08:16)
[2017-04-30 08:45] LABS: BICARBONATE 19.7 MEQ/L (21.0-32.0); POTASSIUM 4.6 MEQ/L (3.5-5.1)
[2017-04-30 09:00] VITALS: PULSE 83
[2017-04-30] MEDS ORDERED: NYSTATIN 100,000 UNIT/GM CREAM 15 GM TOPICAL SCH (09:00)
[2017-04-30] MEDS ORDERED: CIPR250T52 PO (09:55)
[2017-04-30 11:15] VITALS: BP 125/58; PULSE 60; RESP 18; TEMP 98.1; O2SAT 99
[2017-04-30] MEDS ORDERED: OXYC1TAB63 PO (11:41)
--- NOTE | 2017-05-05 13:29 | HHI.DS ---
Discharge Summary Admission Date Apr 28, 2017 at 01:42 Discharge Date: Apr 30, 2017 Admitting Diagnosis LORIE (1) Altered mental status (2) Dbvwp-bb-oktvlhi kidney injury (3) Right knee pain (4) Osteoarthritis (5) History of colon cancer (6) HTN (hypertension) (7) GERD (gastroesophageal reflux disease) (8) CAD (coronary artery disease) (9) Neuropathy (10) Atrial fibrillation (11) BPH (benign prostatic hyperplasia) (12) HLD (hyperlipidemia) (13) Leukocytosis Hospital Course Patient is an 87-year-old elderly male with past medical history of A. fib on Coumadin, hypertension, CAD, OA, neuropathy, CAD status post CABG, cardiac stents in August 2016, pacemaker. Patient presented to the emergency room for evaluation of increasing right knee and back pain and unable to ambulate. also indicated that he was temporarily confused. Patient was discharge from [facility] on 04/27/2017. He was originally admitted on 04/11/2017 for severe low back pain and right knee pain and inability to ambulate and perform ADLs. During rehabilitation, he was evaluated by orthopedic surgeon Dr. Arroyo for the right knee pain and was found with a knee effusion. On 2016, he underwent Right knee arthrocentesis with corticosteroid injection April 20, 2017. According to , patient was taking small steps and was deemed appropriate to go home with home health care and physical therapy. Yesterday, he was discharged around 4 in the afternoon and when she got him home he was not able to get out of the car and he appeared confused and was not making much sense. She called her nephew for assistance and he was brought here to the hospital for further evaluation. Patient was now back to baseline according to , he is oriented 3 and answering questions appropriately. He indicated that he cannot really bend the right knee and doesn't think he can manage at home. Review of Dr. Arroyo consultation, indicated there was not much that can be offered other than symptom management as patient has multiple comorbidities and he's not a surgical candidate. Patient and understand this. CBC was remarkable for leukocytosis, WBC 14.4. checked his temperature at home and indicates he was running a low-grade fever of 100.4. He denied any cough, no sputum. BMP was remarkable for hyponatremia, sodium 129, potassium 5.6. BUN was 62, creatinine 2.73. Alkaline phosphatase 194. Patient does have underlying renal disease. thinks that he wasn't drinking a lot of water. He is voiding small amounts of concentrated urine. He denies any urinary symptoms. No UA has been collected yet. INR done yesterday was therapeutic, 2.4. Renal ultrasound done shows no hydronephrosis. Knee x-ray shows severe 3 compartment osteo-arthritic changes which are similar to previous x-ray. Joint effusion again noted. During evaluation, pt was back to baseline according to and no longer confused. Patient was admitted for further evaluation and treatment. (1) Altered mental status (2) Vpvya-vt-ynwklkk kidney injury (3) Right knee pain (4) Osteoarthritis (5) History of colon cancer (6) HTN (hypertension) (7) GERD (gastroesophageal reflux disease) (8) CAD (coronary artery disease) (9) Neuropathy (10) Atrial fibrillation (11) BPH (benign prostatic hyperplasia) (12) HLD (hyperlipidemia) (13) Leukocytosis During the course of the hospitalization, the following took place: 87-year-old elderly male discharge yesterday from [facility], returns to emergency room with confusion, increasing right knee and low back pain. Difficulty ambulating. History of osteoarthritis of the right knee with effusion, status post arthrocentesis and steroid injection on April 20, 2017. Altered mental status, it resolved, likely multifactorial secondary to dehydration and acute renal injury and UTI Improved, oriented x 3 UTI, + ecoli, put on Cipro 250 mg PO BID, Right knee pain, recent right knee effusion and steroid injection. Has severe OA pt. stated both knees painful but right worst. -Consulted orthopedic surgery, Dr. Arrooy. No further interventions, recommended f/u as OP. Can start Medrol dose pack at [facility] Continued with pain management Physical therapy for evaluation and treatment,OOB with assistance - for dc planning, needs [facility] Acute on chronic kidney injury, possibly secondary to dehydration Hyponatremia Hyperkalemia Continued with IV fluids Renal ultrasound results reviewed, no obstruction Avoided nephrotoxic agents Continued to hold DALLIN inhibitor and diuretics -K 5.7 given Kayaxalate x 1 yesterday -K down to 4.6 Leukocytosis, reported fever at home -UTI, ecoli, given PO abx A. fib, has pacemaker pacemaker History of CAD, CABG stents -Continued Coumadin Followed INR, therapeutic -pharmacy for dosing BPH Continued home medications Neuropathy Continued home medications Continue with Coumadin for DVT prophylaxis Physical therapy for evaluation and treatment was at accepted at SNF Discharged in stable condition. Instructed to: f/u ortho 1-2 weeks f/u PCP Diet-heart healthy Activity-as tolerated Pt Condition on Discharge: Stable Discharge Disposition: Discharge to SNF Discharge Instructions DIET: Follow Instructions for: Heart Healthy Diet Activities you can perform: Weight Bearing as Steven Follow up Referrals: Orthopedics - 2 Weeks with Malik Arroyo MD PCP Follow-up - 3-5 Days New Medications: Methylprednisolone Dosepak (Medrol Dosepak) 4 Mg Dspk 4 MG PO DIRECTED Per Pharmacist direction #1 Ref 0 DSPK Ciprofloxacin (Cipro) 250 Mg Tab 250 MG PO Q12HR Infection #10 Ref 0 TAB Oxycodone-Acetaminophen (Oxycodone-Acetaminophen) 5-325 mg Tab 1 TAB PO Q6H PRN PAIN SCALE 3 TO 5 #30 TAB Continued Medications: Enalapril (Enalapril) 2.5 Mg Tab 2.5 MG PO HS #30 Ref 0 TAB Ezetimibe (Zetia) 10 Mg Tab 10 MG PO DAILY #30 Ref 0 TAB Ferrous Sulfate (Ferosul) 325 Mg Tablet 325 MG PO DAILY #30 Finasteride (Proscar) 5 Mg Tab 5 MG PO DAILY Do not crush. Manage Prostate Problems #30 Ref 0 TAB Gabapentin (Neurontin) 300 Mg Cap 300 MG PO BID #60 CAP Isosorbide Mononitrate ER (Isosorbide Mononitrate ER) 60 Mg Tab 60 MG PO DAILY Prevent Chest Pain #30 Ref 0 TAB Melatonin (Gnp Melatonin Maximum Str) 5 Mg Tab 5 MG PO HS PRN INSOMNIA #30 TAB Omeprazole (Omeprazole) 40 Mg Cap 40 MG PO DAILY #30 Ref 0 CAP Sennosides-Docusate Sodium (Senna Plus 8.6-50 mg) 1 Tab Tab 1 TAB PO BID PRN CONSTIPATION #60 TAB Tamsulosin (Flomax) 0.4 Mg Cap 0.4 MG PO HS Manage Prostate Problems #30 Ref 0 CAP Torsemide (Torsemide) 5 Mg Tab 10 MG PO DAILY #60 TAB Warfarin (Coumadin) 1 Mg Tab 1 MG PO DAILY Prevent Blood Clot #30 Ref 0 TAB Discontinued Medications: Oxycodone-Acetaminophen (Oxycodone-Acetaminophen) 7.5-325 mg Tab 1 TAB PO Q6H PRN pain #120 TAB Leeanne Franklin May 05, 2017 13:29
== END 2017-04-30 13:35 | DRG 683 ==
LOC: NEPC 23:40 → NEDA 04-28 01:42 → NEPGCP 04-28 02:16
PROVIDERS: ADMIT Internal Medicine; ATTEND Internal Medicine
DX: N17.9 Acute kidney failure, unspecified (principal); E87.1 Hypo-osmolality and hyponatremia; N39.0 Urinary tract infection, site not specified; G62.9 Polyneuropathy, unspecified; I48.91 Unspecified atrial fibrillation; E87.5 Hyperkalemia; E86.0 Dehydration; E78.5 Hyperlipidemia, unspecified; I12.9 Hypertensive chronic kidney disease with stage 1 through stage 4 chronic kidney disease, or unspecified chronic kidney disease; I25.10 Atherosclerotic heart disease of native coronary artery without angina pectoris; K21.9 Gastro-esophageal reflux disease without esophagitis; N40.0 Benign prostatic hyperplasia without lower urinary tract symptoms; R40.4 Transient alteration of awareness; M17.0 Bilateral primary osteoarthritis of knee; G89.29 Other chronic pain; N18.3 Chronic kidney disease, stage 3 (moderate); Z95.0 Presence of cardiac pacemaker; Z95.1 Presence of aortocoronary bypass graft; Z95.5 Presence of coronary angioplasty implant and graft; Z79.01 Long term (current) use of anticoagulants; Z85.038 Personal history of other malignant neoplasm of large intestine
CPT/HCPCS: 73564; 76775; 80048; 80053; 81001; 82550; 85007; 85025; 85027; 85610; 87077; 87086; 87186; 93005; 96374; J2270; J7030; J7040

== ENCOUNTER 2017-05-14 11:09 | Inpatient (IN) | payer MEDICARE, BC, OTHER ==
[2017-05-14] VITALS (20 sets, daily range): BP systolic 101–163; BP diastolic 53–71; PULSE 53–100; RESP 12–25; TEMP 98–98.8; O2SAT 92–100
[~2017-05-14] VITALS: Ht 188 cm; Wt 94.4 kg
[~2017-05-14 11:09] MED LIST changes: +CIPR250T52 PO; +MEDR4PAK PO; -OXYC1TAB35 PO; +OXYC1TAB63 PO
[2017-05-14] MEDS ORDERED: SODIUM CHLOR 0.9% 1000 ML INJ 1,000 ML IV SCH (11:40)
[2017-05-14] MEDS ORDERED: ONDANSETRON HCL 4 MG/2 ML VIAL IVP ONE (11:45)
[2017-05-14] MEDS ORDERED: PANTOPRAZOLE INJ 80 MG in SODIUM CHLORIDE 0.9% INJ 35 ML IV ONE (11:45)
--- NOTE | 2017-05-14 11:50 | PD ---
HPI Chief Complaint: Abdominal Pain Time Seen by Provider: 11:31 Travel History International Travel<30 days: No Contact w/Intl Traveler<30days: No Traveled to known affect area: No History of Present Illness HPI 87-year-old male complains of abdominal pain and rectal bleeding. Patient states that he started having cramping pain diffuse over the abdomen especially epigastric area since last night. Patient states that he has intermittent nausea vomiting since last night. Patient started passing blood per rectum this morning. Patient denies any headache. Patient denies any chest pain or shortness of breath. Patient states that the abdominal pain in cramping pain started around the epigastric area with radiation to the chest and to the rest of the abdomen. Patient denies any fever chills. Patient denies any dysuria or frequency. Patient denies any back pain. Patient has history hypertension, hyperlipidemia. Patient also has history of atrial fibrillation, status post pacer placement and on Coumadin. Patient has history of arthritis, chronic kidney disease, status post colon resection secondary to colon cancer, CHF, neuropathy. Patient has history of CAD status post CABG and stents placement. PFSH Past Medical History Hx Anticoagulant Therapy: Yes (COUMADIN) Arthritis: Yes Asthma: No Atrial Fibrillation: Yes Blood Disorders: No Anxiety: No Depression: No Heart Rhythm Problems: Yes (Paced) Cancer: Yes (Colon resection) Cardiac Catheterization: Yes Cardiovascular Problems: Yes High Cholesterol: No Chemotherapy: No Chest Pain: Yes Congestive Heart Failure: No COPD: No Cerebrovascular Accident: No Diabetes: No Diminished Hearing: No Endocrine: No Gastrointestinal Disorders: No GERD: No Glaucoma: No Genitourinary: Yes Hepatitis: No Hiatal Hernia: No Hypertension: Yes Immune Disorder: No Implanted Vascular Access Dvce: Yes Kidney Stones: No Medical other: Yes (NEUROPATHY HANDS AND FEET) Musculoskeletal: Yes Neurologic: Yes Psychiatric: No Reproductive: No Respiratory: No Integumentary: No Migraines: No Radiation Therapy: No Renal Failure: Yes Seizures: No Sickle Cell Disease: No Sleep Apnea: No Thyroid Disease: No Ulcer: No Past Surgical History Abdominal Surgery: No AICD: No Arteriovenous Shunt: Yes Body Medical Devices: Pacemaker, stents Cardiac Surgery: Yes (stents) Coronary Artery Bypass Graft: Yes (triple in 1988) Coronary Stent: Yes (2003) Ear Surgery: No Endocrine Surgery: No Eye Surgery: Yes (CATARACT SURGERY IN BOTH EYES) Genitourinary Surgery: No Gynecologic Surgery: No Insulin Pump: No Joint Replacement: No Neurologic Surgery: No Oral Surgery: No Pacemaker: Yes Thoracic Surgery: Yes (CABG) Tonsillectomy: Yes (as a child) Other Surgery: Yes (colon resection) Social History Alcohol Use: No Tobacco Use: No Substance Use: No Allergies-Medications (Allergen,Severity, Reaction): Coded Allergies: Amoxicillin (Verified Allergy, Severe, edema, hives, 05/14/17) Duricef (Verified Allergy, Severe, edema, hives, 05/14/17) Atorvastatin (Verified Allergy, Unknown, 05/14/17) Spironolactone (Verified Allergy, Unknown, 05/14/17) Trental (Verified Allergy, Unknown, 05/14/17) Tricor (Verified Allergy, Unknown, 05/14/17) Reported Meds & Prescriptions Reported Meds & Active Scripts Active Oxycodone-Acetaminophen 5-325 mg Tab 1 Tab PO Q6H PRN Neurontin (Gabapentin) 300 Mg Cap 300 Mg PO BID Senna Plus 8.6-50 mg (Sennosides-Docusate Sodium) 1 Tab Tab 1 Tab PO BID PRN Coumadin (Warfarin) 1 Mg Tab 1 Mg PO DAILY Torsemide 5 Mg Tab 10 Mg PO DAILY Proscar (Finasteride) 5 Mg Tab 5 Mg PO DAILY Do not crush. Flomax (Tamsulosin HCl) 0.4 Mg Cap 0.4 Mg PO HS Zetia (Ezetimibe) 10 Mg Tab 10 Mg PO DAILY Isosorbide Mononitrate ER (Isosorbide Mononitrate) 60 Mg Tab 60 Mg PO DAILY Enalapril (Enalapril Maleate) 2.5 Mg Tab 2.5 Mg PO HS Reported Zofran (Ondansetron HCl) 4 Mg Tab 4 Mg PO Q6HR PRN Melatonin 3 Mg Tab 3 Mg PO HS PRN Ferosul (Ferrous Sulfate) 325 Mg Tablet 325 Mg PO WITH MEALS Ascorbic Acid 500 Mg Tab 500 Mg PO BID Zinc Sulfate 220 Mg Tab 220 Mg PO DAILY 14 Days Omeprazole Magnesium 20.6 Mg Cap 20.6 Mg PO DAILY Multi Vitamin and Mineral (Multiple Vitamins W/ Minerals) 1 Tab Tab 1 Tab PO DAILY Miralax Powder (Polyethylene Glycol 3350 Powder) 17 Gm Powd 17 Gm PO HS Mix and dissolve one measuring capful (17 grams) in water or juice. Chewable Calcium (Calcium Carbonate) 500 Mg Chw 500 Mg PO DAILY Review of Systems General / Constitutional: No: Fever Eyes: No: Visual changes HENT: No: Headaches Cardiovascular: No: Chest Pain or Discomfort Respiratory: No: Shortness of Breath Gastrointestinal: Positive: Nausea, Vomiting, Abdominal Pain, Hematochezia Genitourinary: No: Dysuria Musculoskeletal: No: Pain Skin: No Rash Neurologic: No: Weakness Psychiatric: No: Depression Endocrine: No: Polydipsia Hematologic/Lymphatic: No: Easy Bruising Physical Exam Narrative GENERAL: Well-nourished, well-developed patient. SKIN: Focused skin assessment warm/dry. HEAD: Normocephalic. EYES: No scleral icterus. No injection or drainage. NECK: Supple, trachea midline. No JVD or lymphadenopathy. CARDIOVASCULAR: Regular rate and rhythm without murmurs, gallops, or rubs. RESPIRATORY: Breath sounds equal bilaterally. No accessory muscle use. GASTROINTESTINAL: Abdomen soft, nondistended. Patient has mild to moderate tenderness on palpation epigastric area. No rebound tenderness. No mass. Rectal exam patient has fresh blood per rectum however no active bleeding. MUSCULOSKELETAL: No cyanosis, or edema. BACK: Nontender without obvious deformity. No CVA tenderness. Neurologic exam: Patient's awake alert oriented 3. No obvious focal neurological deficit. Data Data Last Documented VS Vital Signs Date Time Temp Pulse Resp B/P Pulse Ox O2 Delivery O2 Flow Rate FiO2 05/14/17 14:13 98.4 61 20 151/66 98 Room Air Orders Complete Blood Count With Diff (05/14/17 11:40) Comprehensive Metabolic Panel (05/14/17 11:40) Lipase (05/14/17 11:40) Prothrombin Time / Inr (Pt) (05/14/17 11:40) Act Partial Throm Time (Ptt) (05/14/17 11:40) Urinalysis - C+S If Indicated (05/14/17 11:40) Type And Screen (05/14/17 11:40) Fresh Frozen Plasma (Ffp) (05/14/17 11:40) Chest, Single Ap (05/14/17 11:40) Ecg Monitoring (05/14/17 11:40) Iv Access Insert/Monitor (05/14/17 11:40) Oximetry (05/14/17 11:40) Ondansetron Inj (Zofran Inj) (05/14/17 11:45) Sodium Chlor 0.9% 1000 Ml Inj (Ns 1000 M (05/14/17 11:40) Pantoprazole Inj (Protonix Inj) (05/14/17 11:45) Pantoprazole Inj (Protonix Inj) (05/14/17 11:45) Ct Abd/Pel W Iv Contrast(Rout) (05/14/17 11:44) Electrocardiogram (05/14/17 11:24) Labs Laboratory Tests Test 05/14/17 05/14/17 05/14/17 11:25 12:45 13:11 White Blood Count 12.1 TH/MM3 Red Blood Count 4.04 MIL/MM3 Hemoglobin 11.7 GM/DL Hematocrit 35.4 % Mean Corpuscular Volume 87.5 FL Mean Corpuscular Hemoglobin 29.0 PG Mean Corpuscular Hemoglobin 33.2 % Concent Red Cell Distribution Width 14.9 % Platelet Count 301 TH/MM3 Mean Platelet Volume 7.7 FL Neutrophils (%) (Auto) 87.9 % Lymphocytes (%) (Auto) 5.0 % Monocytes (%) (Auto) 6.7 % Eosinophils (%) (Auto) 0.1 % Basophils (%) (Auto) 0.3 % Neutrophils # (Auto) 10.6 TH/MM3 Lymphocytes # (Auto) 0.6 TH/MM3 Monocytes # (Auto) 0.8 TH/MM3 Eosinophils # (Auto) 0.0 TH/MM3 Basophils # (Auto) 0.0 TH/MM3 CBC Comment AUTO DIFF Differential Total Cells 100 Counted Neutrophils % (Manual) 82 % Band Neutrophils % 5 % Lymphocytes % 8 % Monocytes % 3 % Neutrophils # (Manual) 10.8 TH/MM3 Metamyelocytes 1 % Myelocytes 1 % Differential Comment FINAL DIFF MANUAL Platelet Estimate NORMAL Platelet Morphology Comment NORMAL Prothrombin Time 22.8 SEC Prothromb Time International 2.0 RATIO Ratio Activated Partial 32.9 SEC Thromboplast Time Sodium Level 134 MEQ/L Potassium Level 4.2 MEQ/L Chloride Level 98 MEQ/L Carbon Dioxide Level 29.1 MEQ/L Anion Gap 7 MEQ/L Blood Urea Nitrogen 47 MG/DL Creatinine 1.38 MG/DL Estimat Glomerular Filtration 49 ML/MIN Rate Random Glucose 115 MG/DL Calcium Level 8.7 MG/DL Total Bilirubin 1.3 MG/DL Aspartate Amino Transf 66 U/L (AST/SGOT) Alanine Aminotransferase 50 U/L (ALT/SGPT) Alkaline Phosphatase 304 U/L Total Protein 7.3 GM/DL Albumin 2.4 GM/DL Lipase 70 U/L Blood Type O POSITIVE O POSITIVE Antibody Screen NEGATIVE Blood Bank Comment Urine Color YELLOW Urine Turbidity CLEAR Urine pH 5.0 Urine Specific [place] 1.010 Urine Protein NEG mg/dL Urine Glucose (UA) NEG mg/dL Urine Ketones NEG mg/dL Urine Occult Blood NEG Urine Nitrite NEG Urine Bilirubin NEG Urine Urobilinogen LESS THAN 2.0 MG/DL Urine Leukocyte Esterase SMALL Urine RBC 1 /hpf Urine WBC 2 /hpf Urine Squamous Epithelial <1 /hpf Cells Urine Hyaline Casts 4 /lpf Microscopic Urinalysis Comment CULT NOT INDICATED MDM Medical Decision Making Medical Screen Exam Complete: Yes Emergency Medical Condition: Yes Interpretation(s) Last Impressions Abdomen/Pelvis CT 05/14/17 1144 Signed Impressions: Service Date/Time: Sunday, May 14, 2017 13:20 - CONCLUSION: Distended gallbladder containing air. Unless there is an explanation for gallbladder air based upon recent therapeutic intervention of some type, the appearance is concerning for cholecystitis with gas producing organisms. Correlation recommended. Sudarshan Mejias MD 1418 p.m. Chest x-ray shows no acute cardiopulmonary disease. CBC WBC 12.1. Hemoglobin 11.7 hematocrit 35.4. 87 neutrophil. Sodium 134. BUN 47. Creatinine 1.38. GFR 49. Total bili 1.3. AST 66. Alkaline phosphatase 304. Differential Diagnosis Differential diagnosis including upper versus lower GI bleed, colitis, coagulopathy. Narrative Course 87-year-old male with abdominal pain and rectal bleeding. Patient has history of atrial fibrillation, CAD with stents placement and on Coumadin. Normal saline solution 100 cc an hour. Protonix bolus and drip started. Zofran 4 mg IV. Type and screen. Fresh frozen plasma ordered. Diagnosis Primary Impression: GI bleed Qualified Code: K92.2 - Gastrointestinal hemorrhage, unspecified gastrointestinal hemorrhage type Additional Impression: Acute cholecystitis Bo Garcia MD May 14, 2017 11:50
[2017-05-14 12:13] LABS: AUTOMATED NEUTROPHIL # 10.6 TH/MM3 (1.8-7.7); BASOPHIL % 0.3 % (0.0-2.0); EOSINOPHIL % 0.1 % (0.0-4.0); HEMATOCRIT 35.4 % (39.0-51.0); LYMPHOCYTE # 0.6 TH/MM3 (1.0-4.8); MEAN CELL VOLUME 87.5 FL (80.0-100.0); MEAN CORPUSCULAR HGB CONC 33.2 % (32.0-36.0); MONO % 6.7 % (0.0-8.0); NEUT % 87.9 % (16.0-70.0); PLATELET COUNT 301 TH/MM3 (150-450); RED BLOOD COUNT 4.04 MIL/MM3 (4.50-5.90); RED CELL DISTRIBUTION WIDTH 14.9 % (11.6-17.2); WHITE BLOOD COUNT 12.1 TH/MM3 (4.0-11.0)
[2017-05-14 12:16] LABS: HEMO FLAGS AUTO DIFF
[2017-05-14 12:22] LABS: APTT (PATIENT) 32.9 SEC (24.3-30.1); PROTHROMBIN TIME - PATIENT 22.8 SEC (9.8-11.6)
[2017-05-14] MEDS ORDERED: MELA0.02 PO (12:25)
[2017-05-14] MEDS ORDERED: ZOFR4TAB PO (12:25)
[2017-05-14] MEDS ORDERED: FERR325T20 PO (12:25)
[2017-05-14] MEDS ORDERED: CALC1CHW46 PO (12:25)
[2017-05-14] MEDS ORDERED: ASCO500T PO (12:25)
[2017-05-14] MEDS ORDERED: OMEP20.6 PO (12:25)
[2017-05-14] MEDS ORDERED: ZINC220T PO (12:25)
[2017-05-14] MEDS ORDERED: MULT-142 PO (12:25)
[2017-05-14] MEDS ORDERED: MIRA3350 PO (12:25)
[2017-05-14 12:30] LABS: ALT (GPT) 50 U/L (12-78); ANION GAP 7 MEQ/L (5-15); AST (GOT) 66 U/L (15-37); BICARBONATE 29.1 MEQ/L (21.0-32.0); BLOOD UREA NITROGEN 47 MG/DL (7-18); CHLORIDE 98 MEQ/L (98-107); GLOMERULAR FILTRATION RATE 49 ML/MIN (>89); POTASSIUM 4.2 MEQ/L (3.5-5.1); SODIUM (NA) 134 MEQ/L (136-145)
[2017-05-14] MEDS ORDERED: IOHEXOL 350 MG/ML 10 ML VIAL (for RAD DIAG) IV ONE (12:30)
[2017-05-14 12:32] LABS: ALKALINE PHOSPHATASE 304 U/L (45-117); TOTAL BILIRUBIN ADULT 1.3 MG/DL (0.2-1.0)
--- NOTE | 2017-05-14 12:41 | RADRPT ---
EXAM DATE/TIME: 05/14/2017 11:45 [facility] COMPARISON: No previous studies available for comparison. INDICATIONS : Short of breath, upper abdominal pain, chest discomfort, rectal bleeding today, weakness MEDICAL HISTORY : Cardiovascular disease. Carcinoma, colon. Hypertension. SURGICAL HISTORY : CABG. Pacemaker. ENCOUNTER: Initial ACUITY: 1 day PAIN SCORE: 9/10 LOCATION: Bilateral chest FINDINGS: Median sternotomy wires are noted status post cardiac surgery. A left subclavian dual lead pacemaker has its tips in the right atrium and the right ventricle. There is no pneumothorax. The pulmonary vascular pattern is normal. The lungs are clear. CONCLUSION: 1. No acute cardiopulmonary disease. Frederick Rios MD on May 14, 2017 at 12:35 Board Certified Radiologist. This report was verified electronically.
[2017-05-14 12:42] LABS: BANDS 5 % (0-6); METAMYELOCYTES 1 % (0-1); MYELOCYTES 1 % (0-0); NEUTROPHIL # MANUAL DIFF 10.8 TH/MM3 (1.8-7.7); PLATELET ESTIMATE SMEAR NORMAL (NORMAL); PLATELET MORPHOLOGY NORMAL (NORMAL); POLYS (SEG NEUTROPHILS) 82 % (16-70); SCAN/DIFF FINAL DIFF MANUAL; WBC DIFF SAMPLE 100
[2017-05-14 13:27] LABS: BLOOD, URINE NEG (NEG); GLUCOSE,URINE NEG (NEG); HYALINE CAST, URINE 4 /lpf (RARE); KETONE, URINE NEG (NEG); NITRITE,URINE NEG (NEG); SQUAMOUS EPITHELIAL CELL URINE <1 /hpf (0-5); URINE COLOR YELLOW (YELLW/STRAW)
[2017-05-14 13:28] LABS: COMMENT (UR) CULT NOT INDICATED; CULTURE IF INDICATED CULT NOT INDICATED
[2017-05-14] MEDS: PANTOPRAZOLE INJ 80 MG in SODIUM CHLORIDE 0.9% INJ 100 ML IV SCH ×2 (13:46→23:50)
--- NOTE | 2017-05-14 14:10 | RADRPT ---
EXAM DATE/TIME: 05/14/2017 13:20 [facility] COMPARISON: No previous studies available for comparison. INDICATIONS : Bilateral upper abdominal pain. Evaluate for gastric bleed. IV CONTRAST: 96 cc Omnipaque 350 (iohexol) IV ORAL CONTRAST: No oral contrast ingested. RADIATION DOSE: 10.36 CTDIvol (mGy) MEDICAL HISTORY : Cardiovascular disease. Carcinoma, colon. SURGICAL HISTORY : CABG Colon resection. ENCOUNTER: Initial ACUITY: 2 days PAIN SCALE: 10/10 LOCATION: Bilateral upper quadrant TECHNIQUE: Volumetric scanning of the abdomen and pelvis was performed. Using automated exposure control and ad justment of the mA and/or kV according to patient size, radiation dose was kept as low as reasonably achievable to obtain optimal diagnostic quality images. DICOM format image data is available electro nically for review and comparison. FINDINGS: LOWER LUNGS: Mild basilar atelectasis. LIVER: Homogeneous density without lesion. There is no dilation of the biliary tree. The gallbladder is dis tended and there is some nondependent air in the gallbladder lumen. No evidence of pericholecystic fl uid. No obvious wall thickening or adjacent inflammatory change. SPLEEN: Normal size without lesion. PANCREAS: Within normal limits. KIDNEYS: Small cyst arising from the anterolateral upper pole cortex of the right kidney. No evidence of hydro nephrosis. ADRENAL GLANDS: Within normal limits. VASCULAR: Dense atherosclerotic changes. No evidence of aneurysm. BOWEL/MESENTERY: The stomach, small bowel, and colon demonstrate no acute abnormality. There is no free intraperitone al air or fluid. ABDOMINAL WALL: Within normal limits. RETROPERITONEUM: There is no lymphadenopathy. BLADDER: Mildly distended. Bilateral bladder base diverticula which are small. REPRODUCTIVE: Within normal limits. INGUINAL: There is no lymphadenopathy or hernia. MUSCULOSKELETAL: Within normal limits for patient age. CONCLUSION: Distended gallbladder containing air. Unless there is an explanation for gallbladder air based upon r ecent therapeutic intervention of some type, the appearance is concerning for cholecystitis with gas producing organisms. Correlation recommended. Sudarshan Mejias MD on May 14, 2017 at 13:46 Board Certified Radiologist. This report was verified electronically.
[2017-05-14] MEDS ORDERED: MORPHINE SULFATE 4 MG/ML INJ IV PUSH ONE (15:00)
[2017-05-14] MEDS: SODIUM CHLOR 0.9% 1000 ML INJ 1,000 ML IV SCH ×2 (15:25→23:51)
[2017-05-14] MEDS ORDERED: LACTULOSE SYRUP 20 GM/30 ML CUP PO PRN (15:30)
[2017-05-14] MEDS ORDERED: MAGNESIUM HYDROXIDE SUSP 30 ML CUP PO PRN (15:30)
[2017-05-14] MEDS ORDERED: NALOXONE HCL 0.4 MG/ML AMP IV PRN (15:30)
[2017-05-14] MEDS ORDERED: SODIUM CHLORIDE 0.9% FLUSH 10 ML FLUSH IV FLUSH PRN (15:30)
[2017-05-14] MEDS ORDERED: SENNOSIDES 8.6 MG TAB PO PRN (15:30)
[2017-05-14] MEDS ORDERED: BISACODYL 10 MG SUPP RECTAL PRN (15:30)
[2017-05-14] MEDS ORDERED: ACETAMINOPHEN 325 MG TAB PO PRN (15:30)
--- NOTE | 2017-05-14 16:53 | HHI.HP ---
HPI Service [facility] Primary Care Physician Gael Purdy MD Admission Diagnosis GI bleed. Acute cholecystitis. Coagulopathy. Renal insufficiency. Diagnoses: Chief Complaint: rectal bleeding Travel History International Travel<30 Days: No Contact w/Intl Traveler <30 Da: No Traveled to Known Affected Are: No History of Present Illness Patient is an 87-year-old elderly male with past medical history of A. fib on Coumadin, hypertension, CAD, OA, neuropathy, CAD status post CABG, cardiac stents in August 2016, pacemaker. Patient with recent admissions for right knee severe osteoarthritis, was discharged from [facility] on 2016 and then readmitted from 04/28/2017 to 04/30/2017 for acute kidney injury, UTI and right knee pain. He was discharged to a SNF facility in stable condition. According to the patient, he had been doing relatively well and had started to ambulate. Yesterday during the day he noted that every time he went to the bathroom to have a bowel movement stools were liquid mixed with some blood. Last night he started to develop sharp abdominal pain across upper abdomen and radiating down to the lower abdomen. It was associated with nausea , some vomiting. Has had poor appetite. Denies any fever, no chills. In the emergency room, patient was evaluated. He was noted with some leukocytosis, WBC 12.1, hemoglobin 11.7, hematocrit 35.4. Platelets 301. BMP was significant for chronic kidney disease which appears stable, BUN 47, creatinine 1.38. AST 66, total bilirubin 1.3. Imaging studies were completed. Last Impressions Abdomen/Pelvis CT 05/14/17 1144 Signed Impressions: Service Date/Time: Sunday, May 14, 2017 13:20 - CONCLUSION: Distended gallbladder containing air. Unless there is an explanation for gallbladder air based upon recent therapeutic intervention of some type, the appearance is concerning for cholecystitis with gas producing organisms. Correlation recommended. Sudarshan Mejias MD Chest X-Ray 05/14/17 1140 Signed Impressions: Service Date/Time: Sunday, May 14, 2017 11:45 - CONCLUSION: 1. No acute cardiopulmonary disease. Frederick Rios MD CT of the abdomen remarkable for distended gallbladder containing air. IV fluids were ordered, fresh frozen plasma is in progress. He has been started on a Protonix drip. Dr. Modi has already been in to evaluate the patient and plans to do surgery tomorrow. Patient does have a history of recent drug- eluting stent August 2016 and was on Plavix but it was stopped at the rehabilitation facility, it is not clear as to the reason. Dr. Slade has been in to evaluate patient and cleared him to proceed with surgery and any other GI workup if necessary. He does recommend to do all procedures while he is hospitalized and resume Plavix and Coumadin as soon as possible. His family is at bedside, they verbalize understanding of the risks associated with surgery because of his multiple comorbidities. Patient denies any recent chest pain, no shortness of breath. Patient is admitted for further evaluation and treatment. S Review of Systems Constitutional: COMPLAINS OF: Change in appetite, DENIES: Diaphoretic episodes , Fatigue, Fever, Weight gain, Weight loss, Chills, Dizziness, Night Sweats Endocrine: DENIES: Heat/cold intolerance, Polydipsia, Polyuria, Polyphagia Eyes: DENIES: Blurred vision, Diplopia, Eye inflammation, Eye pain, Vision loss , Photosensitivity, Double Vision Ears, nose, mouth, throat: DENIES: Tinnitus, Hearing loss, Vertigo, Nasal discharge, Oral lesions, Throat pain, Hoarseness, Ear Pain, Running Nose, Epistaxis, Sinus Pain, Toothache, Odynophagia Respiratory: DENIES: Apneas, Cough, Snoring, Wheezing, Hemoptysis, Sputum production, Shortness of breath Cardiovascular: DENIES: Chest pain, Palpitations, Syncope, Dyspnea on Exertion , PND, Lower Extremity Edema, Orthopnea, Claudication Gastrointestinal: COMPLAINS OF: Abdominal pain, Bloody stools, Nausea, Vomiting , DENIES: Black stools, Constipation, Diarrhea, Difficulty Swallowing, Anorexia Genitourinary: DENIES: Sexual dysfunction, Urinary frequency, Urinary incontinence, Urgency, Hematuria, Dysuria, Nocturia, Penile Discharge, Testicular Pain, Testicular Swelling Musculoskeletal: COMPLAINS OF: Joint pain (right knee pain, improving), DENIES : Muscle aches, Stiffness, Joint Swelling, Back pain, Neck pain Integumentary: DENIES: Abnormal pigmentation, Nail changes, Pruritus, Rash Hematologic/lymphatic: DENIES: Bruising, Lymphadenopathy Immunologic/allergic: DENIES: Eczema, Urticaria Neurologic: DENIES: Abnormal gait, Headache, Localized weakness, Paresthesias, Seizures, Speech Problems, Tremor, Poor Balance Psychiatric: DENIES: Anxiety, Confusion, Mood changes, Depression, Hallucinations, Agitation, Suicidal Ideation, Homicidal Ideation, Delusions Past Family Social History Past Medical History 1. Atrial fibrillation. 2. Hypertension. 3. CAD status post CABG and stent. 4. Arthritis. 5. Hyperlipidemia. 6. Renal insufficiency 7. OA 8. Severe osteoarthritis of the right knee, status post steroid injection 9. Recently admitted from 04/28/2017 to 04/30/2017 for acute kidney injury, UTI and worsening right knee pain. Past Surgical History 1. History of CABG, stents. 2. Partial colon resection. 3. Pacemaker 4. Right knee arthrocentesis with corticosteroid injection April 20, 2017 Reported Medications Reported Meds & Active Scripts Active Oxycodone-Acetaminophen 5-325 mg Tab 1 Tab PO Q6H PRN Neurontin (Gabapentin) 300 Mg Cap 300 Mg PO BID Senna Plus 8.6-50 mg (Sennosides-Docusate Sodium) 1 Tab Tab 1 Tab PO BID PRN Coumadin (Warfarin) 1 Mg Tab 1 Mg PO DAILY Torsemide 5 Mg Tab 10 Mg PO DAILY Proscar (Finasteride) 5 Mg Tab 5 Mg PO DAILY Do not crush. Flomax (Tamsulosin HCl) 0.4 Mg Cap 0.4 Mg PO HS Zetia (Ezetimibe) 10 Mg Tab 10 Mg PO DAILY Isosorbide Mononitrate ER (Isosorbide Mononitrate) 60 Mg Tab 60 Mg PO DAILY Enalapril (Enalapril Maleate) 2.5 Mg Tab 2.5 Mg PO HS Reported Zofran (Ondansetron HCl) 4 Mg Tab 4 Mg PO Q6HR PRN Melatonin 3 Mg Tab 3 Mg PO HS PRN Ferosul (Ferrous Sulfate) 325 Mg Tablet 325 Mg PO WITH MEALS Ascorbic Acid 500 Mg Tab 500 Mg PO BID Zinc Sulfate 220 Mg Tab 220 Mg PO DAILY 14 Days Omeprazole Magnesium 20.6 Mg Cap 20.6 Mg PO DAILY Multi Vitamin and Mineral (Multiple Vitamins W/ Minerals) 1 Tab Tab 1 Tab PO DAILY Miralax Powder (Polyethylene Glycol 3350 Powder) 17 Gm Powd 17 Gm PO HS Mix and dissolve one measuring capful (17 grams) in water or juice. Chewable Calcium (Calcium Carbonate) 500 Mg Chw 500 Mg PO DAILY Allergies: Coded Allergies: Amoxicillin (Verified Allergy, Severe, edema, hives, 05/14/17) Duricef (Verified Allergy, Severe, edema, hives, 05/14/17) Atorvastatin (Verified Allergy, Unknown, 05/14/17) Spironolactone (Verified Allergy, Unknown, 05/14/17) Trental (Verified Allergy, Unknown, 05/14/17) Tricor (Verified Allergy, Unknown, 05/14/17) Active Ordered Medications Inpatient Medications Acetaminophen (Tylenol) 650 mg Q4H PRN PO TEMP > 100.4; Start 05/14/17 at 15:30 Bisacodyl (Dulcolax Supp) 10 mg DAILY PRN RECTAL SEVERE CONSITIPATION; Start at 15:30 Lactulose (Lactulose Liq) 30 ml DAILY PRN PO SEVERE CONSITIPATION; Start at 15:30 Magnesium Hydroxide (Milk Of Magnesia Liq) 30 ml Q12H PRN PO MILD - MODERATE CONSTIPATION; Start 05/14/17 at 15:30 Morphine Sulfate 2 mg 2 mg ONCE ONCE IV PUSH Last administered on 05/14/17 15 :14; Start 05/14/17 at 15:00; Stop 05/14/17 at 15:01; Status DC Naloxone HCl (Narcan Inj) 0.4 mg UNSCH PRN IV SEE LABEL COMMENTS; Start at 15:30 Ondansetron HCl (Zofran Inj) 4 mg Q6H PRN IVP NAUSEA OR VOMITING; Start at 15:30 Ondansetron HCl 4 mg 4 mg ONCE ONCE IVP Last administered on 05/14/17 13:09; Start 05/14/17 at 11:45; Stop 05/14/17 at 11:46; Status DC Pantoprazole Sodium 80 mg/ Sodium Chloride 35 ml @ 420 mls/hr ONCE ONCE IV Last administered on 05/14/17 13:44; Start 05/14/17 at 11:45; Stop 05/14/17 at 11:49; Status DC Pantoprazole Sodium/Sodium Chloride (Protonix Inj/NS Inj) 100 ml @ 10 mls/hr Q10H IV Last administered on 05/14/17 13:46; Start 05/14/17 at 11:45 Senna/Docusate Sodium (Jaqui-Colace) 1 tab BID PO ; Start 05/14/17 at 21:00 Sennosides (Senokot) 17.2 mg Q12H PRN PO MODERATE - SEVERE CONSTIPATION; Start 05/14/17 at 15:30 Sodium Chloride (NS 1000 ml Inj) 1,000 ml @ 100 mls/hr Q10H IV ; Start at 15:25 Sodium Chloride (NS Flush) 2 ml BID IV FLUSH ; Start 05/14/17 at 21:00 Family History CAD in the family. Mother and father of heart attack. Social History The patient does not smoke or do any drugs. lives with his . Currently in rehabilitation. Drinks two [place] three times a week. He has been doing this from the age of 22. Physical Exam Vital Signs Vital Signs Date Time Temp Pulse Resp B/P Pulse Ox O2 Delivery O2 Flow Rate FiO2 05/14/17 15:09 98.7 60 12 151/69 99 05/14/17 14:45 98.8 60 19 152/67 98 Room Air 05/14/17 14:36 98.3 65 19 150/67 99 Room Air 05/14/17 14:35 98.3 63 13 150/67 99 Room Air 05/14/17 14:27 98.4 63 16 147/68 98 Room Air 05/14/17 14:13 98.4 61 20 151/66 98 Room Air 05/14/17 13:46 60 12 150/68 98 Room Air 05/14/17 11:40 99 Room Air 05/14/17 11:20 98.7 65 24 131/70 99 Room Air 05/14/17 11:17 98.7 62 24 131/70 98 Physical Exam GENERAL: This is a well-nourished, well-developed patient, grimacing in pain. SKIN: Skin pale, cool dry. HEAD: Atraumatic. Normocephalic. No temporal or scalp tenderness. EYES: Pupils equal round and reactive. Extraocular motions intact. No scleral icterus. No injection or drainage. ENT: Nose without bleeding, purulent drainage or septal hematoma. Throat without erythema, tonsillar hypertrophy or exudate. Uvula midline. Airway patent. NECK: Trachea midline. No JVD or lymphadenopathy. Supple, nontender, no meningeal signs. CARDIOVASCULAR: Regular rate and rhythm without murmurs, gallops, or rubs. RESPIRATORY: Clear to auscultation. Breath sounds equal bilaterally. No wheezes , rales, or rhonchi. GASTROINTESTINAL: Abdomen soft, tender to palpation to right upper quadrant. Bowel sounds hypoactive 4.Voluntary guarding MUSCULOSKELETAL: No joint abnormality. Slight swelling to the right knee which appears to have improved since last admission. NEUROLOGICAL: Awake, oriented x 3. No focal deficits. Speech clear. Laboratory Laboratory Tests Test 05/14/17 05/14/17 05/14/17 11:25 12:45 13:11 White Blood Count 12.1 Red Blood Count 4.04 Hemoglobin 11.7 Hematocrit 35.4 Mean Corpuscular Volume 87.5 Mean Corpuscular Hemoglobin 29.0 Mean Corpuscular Hemoglobin 33.2 Concent Red Cell Distribution Width 14.9 Platelet Count 301 Mean Platelet Volume 7.7 Neutrophils (%) (Auto) 87.9 Lymphocytes (%) (Auto) 5.0 Monocytes (%) (Auto) 6.7 Eosinophils (%) (Auto) 0.1 Basophils (%) (Auto) 0.3 Neutrophils # (Auto) 10.6 Lymphocytes # (Auto) 0.6 Monocytes # (Auto) 0.8 Eosinophils # (Auto) 0.0 Basophils # (Auto) 0.0 CBC Comment AUTO DIFF Differential Total Cells 100 Counted Neutrophils % (Manual) 82 Band Neutrophils % 5 Lymphocytes % 8 Monocytes % 3 Neutrophils # (Manual) 10.8 Metamyelocytes 1 Myelocytes 1 Differential Comment FINAL DIFF MANUAL Platelet Estimate NORMAL Platelet Morphology Comment NORMAL Prothrombin Time 22.8 Prothromb Time International 2.0 Ratio Activated Partial 32.9 Thromboplast Time Sodium Level 134 Potassium Level 4.2 Chloride Level 98 Carbon Dioxide Level 29.1 Anion Gap 7 Blood Urea Nitrogen 47 Creatinine 1.38 Estimat Glomerular Filtration 49 Rate Random Glucose 115 Calcium Level 8.7 Total Bilirubin 1.3 Aspartate Amino Transf 66 (AST/SGOT) Alanine Aminotransferase 50 (ALT/SGPT) Alkaline Phosphatase 304 Total Protein 7.3 Albumin 2.4 Lipase 70 Blood Type O POSITIVE O POSITIVE Antibody Screen NEGATIVE Blood Bank Comment Urine Color YELLOW Urine Turbidity CLEAR Urine pH 5.0 Urine Specific [place] 1.010 Urine Protein NEG Urine Glucose (UA) NEG Urine Ketones NEG Urine Occult Blood NEG Urine Nitrite NEG Urine Bilirubin NEG Urine Urobilinogen LESS THAN 2.0 Urine Leukocyte Esterase SMALL Urine RBC 1 Urine WBC 2 Urine Squamous Epithelial <1 Cells Urine Hyaline Casts 4 Microscopic Urinalysis Comment CULT NOT INDICATED Result Diagram: 05/14/17 1125 05/14/17 1125 Imaging Last Impressions Abdomen/Pelvis CT 05/14/17 1144 Signed Impressions: Service Date/Time: Sunday, May 14, 2017 13:20 - CONCLUSION: Distended gallbladder containing air. Unless there is an explanation for gallbladder air based upon recent therapeutic intervention of some type, the appearance is concerning for cholecystitis with gas producing organisms. Correlation recommended. Sudarshan Mejias MD Chest X-Ray 05/14/17 1140 Signed Impressions: Service Date/Time: Sunday, May 14, 2017 11:45 - CONCLUSION: 1. No acute cardiopulmonary disease. Frederick Rios MD Assessment and Plan Problem List: (1) Acute cholecystitis (2) GI bleed (3) Atrial fibrillation (4) History of colon cancer (5) CAD (coronary artery disease) (6) Leukocytosis (7) Osteoarthritis (8) Neuropathy (9) GERD (gastroesophageal reflux disease) (10) HTN (hypertension) (11) HLD (hyperlipidemia) (12) BPH (benign prostatic hyperplasia) (13) [id number] kidney injury Assessment and Plan Admit to Dr. Chakraborty 87-year-old elderly male with recent hospitalizations for right knee pain and physical debility, currently in rehabilitation. Presents to the emergency room with complaint of rectal bleeding and sharp abdominal pain associated with nausea vomiting. Patient is on Coumadin. He was also on Plavix but has been stopped. CT of the abdomen with findings of distended gallbladder containing air. Abdominal pain, CT findings of distended gallbladder containing air, concerning for gas producing organisms. Leukocytosis -Continue with IV fluids -Keep nothing by mouth Dilaudid as needed for pain management Continue with Flagyl 500 mg IV every 6 as well as Levaquin 500 milligrams IV daily. Rectal bleeding, patient on Coumadin and was also on Plavix. Etiology unclear. Has history of colon cancer. -Gastroenterology has been consulted for evaluation, input is appreciated. -Continue to monitor serial H&H Monitor for active bleeding Continue Protonix Right knee pain, recent right knee effusion and steroid injection. Has severe osteoarthritis. Patient has been improving, has started to walk. -We'll consult physical therapy when patient more stable. Acute on chronic kidney injury, stable, Continue with IV fluids Jefry ruby, has pacemaker pacemaker History of CAD, CABG, EDNA stent August 2016. Was on Plavix. -Coumadin on hold at this time, FFP has been ordered to reverse INR Cardiology has been consulted, case has been discussed with Dr. Slade. He recommends to try to do all procedures during this hospitalization and start patient back on Plavix and Coumadin when stable. From a cardiac standpoint, he has cleared patient to proceed with surgery. -We will put patient on continuous cardiac telemetry -At this time, his home medications are on hold, we will resume when able to take by mouth BPH Continue home medications when able to take PO Neuropathy Continue home medications when able to take PO Home medications reviewed, initiated as indicated SCDs for DVT prophylaxis continue with PPI gtt for GI prophylaxis Repeat labs in am This patient was seen by myself and Dr. Chakraborty, this H&P is written on his behalf Physician Certification 2 Midnight Certification Type: Admission for Inpatient Services Order for Inpatient Services The services are ordered in accordance with Medicare regulations or non- Medicare payer requirements, as applicable. In the case of services not specified as inpatient-only, they are appropriately provided as inpatient services in accordance with the 2-midnight benchmark. Estimated LOS (days): 2 2 days is the estimated time the patient will need to remain in the hospital, assuming treatment plan goals are met and no additional complications. Post-Hospital Plan: SNF Problem Qualifiers (1) GI bleed: Qualified Code: K92.2 - Gastrointestinal hemorrhage, unspecified gastrointestinal hemorrhage type (2) Atrial fibrillation: Qualified Code: I48.91 - Atrial fibrillation, unspecified type (3) CAD (coronary artery disease): Qualified Code: I25.10 - Coronary artery disease involving yuhaaviatam coronary artery of yuhaaviatam heart without angina pectoris (4) Leukocytosis: Qualified Code: D72.829 - Leukocytosis, unspecified type (5) Osteoarthritis: Qualified Code: M15.9 - Osteoarthritis of multiple joints, unspecified osteoarthritis type (6) GERD (gastroesophageal reflux disease): Qualified Code: K21.9 - Gastroesophageal reflux disease, esophagitis presence not specified (7) HTN (hypertension): Qualified Code: I10 - Essential hypertension (8) HLD (hyperlipidemia): Qualified Code: E78.5 - Hyperlipidemia, unspecified hyperlipidemia type (9) BPH (benign prostatic hyperplasia): Qualified Code: N40.0 - Benign prostatic hyperplasia, presence of lower urinary tract symptoms unspecified (10) [id number] kidney injury: Leeanne Franklin [facility] May 14, 2017 16:53
--- NOTE | 2017-05-14 17:10 | PD.CONS ---
HPI History of Present Illness This is a 87 year old male with multiple medical problems including atrial fibrillation, hypertension, coronary artery disease, osteoarthritis, neuropathy , and colon cancer. He reports that he underwent a colonoscopy in August 2016 and was found to have a cancerous polyp. He was referred to general surgery for resection but states his surgery was canceled a few days before was scheduled secondary to cardiac issues. He has a history of a CABG and stenting of the coronary arteries and was found to have blockages in the stents. He was then referred to [facility] in [place] and had to have his stents replaced. Afterwards he was started on Plavix and aspirin to prevent reocclusion, although he reports that at some point, he was taken off of the Plavix and aspirin and just placed on the coumadin for his Atrial fibrillation. He then had a laparoscopic partial colectomy at [facility]. He reports that he was told that this was stage I and he did not require any further treatment. Over the past 6 months he's had several hospitalizations related to knee pain, generalized weakness, difficulty ambulating, and confusion. He was recently hospitalized at [facility] from 04/11/17 to 04/26/17 for intensive rehabilitation for inability to ambulate. His family reports that he was discharged at 4:30 pm but became confused and was brought back to the hospital by 11pm of that night. He was admitted for altered mental status, likely secondary to dehydration, acute renal injury, and UTI. He was started on Cipro and his symptoms improved and he was discharged to a rehabilitation center on . His reports that he has remained at the senior care facility. He has had decreased appetite and abnormal weight loss of 30 pounds over the past 6 months. The patient reports this is partly due to the fact that he does not care for the food and reports that sometimes he does get epigastric pain when he eats. Yesterday he had a few bites of coleslaw and reports that he started having significant pain in his right upper quadrant, which she describes as a constant squeezing type pain. It sometimes radiates to his back and is worse with inspiration. He also reports that he has intermittent nausea and has so for the past week and a half. He did have one episode of vomiting, consisting of thick yellowish gastric secretions, but no blood. Since he's been in and out of the hospital, he's been also having issues with constipation and fecal impactions. He is currently on Senokot and Miralax at the rehab center for this. Last night he had the urge to move his bowels, but reports he only passed gas. Afterwards when he wiped himself he saw a small amount of bright red blood on the toilet tissue. There is no blood in the toilet. The pain and nausea continued overnight and he reports that he had another small amount of bright red blood per rectum this morning. He came to the ER for further evaluation and was found to have a WBC of 12.1, H&H 11.7/ 35.4 (up from his last admission), and abnormal CT scan abdomen and pelvis (05/14)-----> Distended gallbladder containing air. Unless there is an explanation for gallbladder air based upon recent therapeutic intervention of some type, the appearance is concerning for cholecystitis with gas producing organisms. Correlation recommended. General surgery was consulted and the plan is for laparoscopic cholecystectomy tomorrow if his INR is reversed. The patient denies any prior history of GI bleeding. He is not having any significant rectal bleeding at this time. PFSH Past Medical History Atrial fibrillation Coronary artery disease Hypertension Arthritis Hyperlipidemia Renal insufficiency Osteoarthritis Neuropathy Colon cancer Past Surgical History CABG Cardiac catheterization Colonoscopy Pacemaker placement Right knee arthrocentesis with corticoid injection Coded Allergies: Amoxicillin (Verified Allergy, Severe, edema, hives, 05/14/17) Duricef (Verified Allergy, Severe, edema, hives, 05/14/17) Atorvastatin (Verified Allergy, Unknown, 05/14/17) Spironolactone (Verified Allergy, Unknown, 05/14/17) Trental (Verified Allergy, Unknown, 05/14/17) Tricor (Verified Allergy, Unknown, 05/14/17) Medications Allergies Coded Allergies Type Severity Reaction Last Updated Verified Amoxicillin Allergy Severe edema, hives 05/14/17 Yes Duricef Allergy Severe edema, hives 05/14/17 Yes Atorvastatin Allergy Unknown 05/14/17 Yes Spironolactone Allergy Unknown 05/14/17 Yes Trental Allergy Unknown 05/14/17 Yes Tricor Allergy Unknown 05/14/17 Yes Active Scripts Medications Dose Route/Sig Days Date Category Dose Instructions Zofran (Ondansetron HCl) 4 Mg Tab 4 Mg PO Q6HR PRN 05/14/17 Reported Melatonin 3 Mg Tab 3 Mg PO HS PRN 05/14/17 Reported Ferosul (Ferrous Sulfate) 325 Mg Tablet 325 Mg PO WITH MEALS 05/14/17 Reported Ascorbic Acid 500 Mg Tab 500 Mg PO BID 05/14/17 Reported Zinc Sulfate 220 Mg Tab 220 Mg PO DAILY 14 05/14/17 Reported Omeprazole Magnesium 20.6 Mg Cap 20.6 Mg PO DAILY 05/14/17 Reported Multi Vitamin and Mineral (Multiple Vitamins W/ Minerals) 1 Tab Tab 1 Tab PO DAILY 05/14/17 Reported Miralax Powder (Polyethylene Glycol 3350 Powder) 17 Gm Powd 17 Gm PO HS 05/14/17 Reported Mix and dissolve one measuring capful (17 grams) in water or juice. Chewable Calcium (Calcium Carbonate) 500 Mg Chw 500 Mg PO DAILY 05/14/17 Reported Oxycodone-Acetaminophen 5-325 mg Tab 1 Tab PO Q6H PRN 04/30/17 Rx Neurontin (Gabapentin) 300 Mg Cap 300 Mg PO BID 04/26/17 Rx Senna Plus 8.6-50 mg (Sennosides-Docusate Sodium) 1 Tab Tab 1 Tab PO BID PRN 04/26/17 Rx Coumadin (Warfarin) 1 Mg Tab 1 Mg PO DAILY 04/26/17 Rx Torsemide 5 Mg Tab 10 Mg PO DAILY 04/26/17 Rx Proscar (Finasteride) 5 Mg Tab 5 Mg PO DAILY 04/26/17 Rx Do not crush. Flomax (Tamsulosin HCl) 0.4 Mg Cap 0.4 Mg PO HS 04/26/17 Rx Zetia (Ezetimibe) 10 Mg Tab 10 Mg PO DAILY 04/26/17 Rx Isosorbide Mononitrate ER (Isosorbide Mononitrate) 60 Mg Tab 60 Mg PO DAILY 04/26/17 Rx Enalapril (Enalapril Maleate) 2.5 Mg Tab 2.5 Mg PO HS 04/26/17 Rx Family History Multiple family members with heart disease including mother, father, 2 brothers , 1 sister- all from heart disease Denies any family history of known cancer Social History Denies any tobacco use Typically drinks about 7 alcoholic drinks per week, but has not had any for 6 weeks Review of Systems Constitutional: COMPLAINS OF: Fatigue, Weight loss, Change in appetite, DENIES : Fever, Chills Respiratory: DENIES: Cough Cardiovascular: DENIES: Chest pain Gastrointestinal: COMPLAINS OF: Abdominal pain, Bloody stools, Constipation, Nausea, Vomiting, DENIES: Black stools, Diarrhea, Swelling of Abdomen, Heartburn Musculoskeletal: COMPLAINS OF: Joint pain Hematologic/lymphatic: DENIES: Bruising Neurologic: DENIES: Headache Psychiatric: DENIES: Confusion GI Exam Vitals I&O Vital Signs Date Time Temp Pulse Resp B/P Pulse Ox O2 Delivery O2 Flow Rate FiO2 05/14/17 15:09 98.7 60 12 151/69 99 05/14/17 14:45 98.8 60 19 152/67 98 Room Air 05/14/17 14:36 98.3 65 19 150/67 99 Room Air 05/14/17 14:35 98.3 63 13 150/67 99 Room Air 05/14/17 14:27 98.4 63 16 147/68 98 Room Air 05/14/17 14:13 98.4 61 20 151/66 98 Room Air 05/14/17 13:46 60 12 150/68 98 Room Air 05/14/17 11:40 99 Room Air 05/14/17 11:20 98.7 65 24 131/70 99 Room Air 05/14/17 11:17 98.7 62 24 131/70 98 I/O 05/13/17 05/13/17 05/13/17 05/14/17 05/14/17 05/14/17 07:00 15:00 23:00 07:00 15:00 23:00 Intake Total 363 ml Output Total 400 ml Balance -400 ml 363 ml FFP 363 ml Output Urine Total 400 ml # Voids 1 Imaging Last Impressions Abdomen/Pelvis CT 05/14/17 1144 Signed Impressions: Service Date/Time: Sunday, May 14, 2017 13:20 - CONCLUSION: Distended gallbladder containing air. Unless there is an explanation for gallbladder air based upon recent therapeutic intervention of some type, the appearance is concerning for cholecystitis with gas producing organisms. Correlation recommended. Sudarshan Mejias MD Chest X-Ray 05/14/17 1140 Signed Impressions: Service Date/Time: Sunday, May 14, 2017 11:45 - CONCLUSION: 1. No acute cardiopulmonary disease. Frederick Rios MD Laboratory Test 6/05/14/17 05/14/17 11:25 12:45 13:11 White Blood Count 12.1 TH/MM3 Red Blood Count 4.04 MIL/MM3 Hemoglobin 11.7 GM/DL Hematocrit 35.4 % Mean Corpuscular Volume 87.5 FL Mean Corpuscular Hemoglobin 29.0 PG Mean Corpuscular Hemoglobin 33.2 % Concent Red Cell Distribution Width 14.9 % Platelet Count 301 TH/MM3 Mean Platelet Volume 7.7 FL Neutrophils (%) (Auto) 87.9 % Lymphocytes (%) (Auto) 5.0 % Monocytes (%) (Auto) 6.7 % Eosinophils (%) (Auto) 0.1 % Basophils (%) (Auto) 0.3 % Neutrophils # (Auto) 10.6 TH/MM3 Lymphocytes # (Auto) 0.6 TH/MM3 Monocytes # (Auto) 0.8 TH/MM3 Eosinophils # (Auto) 0.0 TH/MM3 Basophils # (Auto) 0.0 TH/MM3 CBC Comment AUTO DIFF Differential Total Cells 100 Counted Neutrophils % (Manual) 82 % Band Neutrophils % 5 % Lymphocytes % 8 % Monocytes % 3 % Neutrophils # (Manual) 10.8 TH/MM3 Metamyelocytes 1 % Myelocytes 1 % Differential Comment FINAL DIFF MANUAL Platelet Estimate NORMAL Platelet Morphology Comment NORMAL Prothrombin Time 22.8 SEC Prothromb Time International 2.0 RATIO Ratio Activated Partial 32.9 SEC Thromboplast Time Sodium Level 134 MEQ/L Potassium Level 4.2 MEQ/L Chloride Level 98 MEQ/L Carbon Dioxide Level 29.1 MEQ/L Anion Gap 7 MEQ/L Blood Urea Nitrogen 47 MG/DL Creatinine 1.38 MG/DL Estimat Glomerular Filtration 49 ML/MIN Rate Random Glucose 115 MG/DL Calcium Level 8.7 MG/DL Total Bilirubin 1.3 MG/DL Aspartate Amino Transf 66 U/L (AST/SGOT) Alanine Aminotransferase 50 U/L (ALT/SGPT) Alkaline Phosphatase 304 U/L Total Protein 7.3 GM/DL Albumin 2.4 GM/DL Lipase 70 U/L Blood Type O POSITIVE O POSITIVE Antibody Screen NEGATIVE Blood Bank Comment Urine Color YELLOW Urine Turbidity CLEAR Urine pH 5.0 Urine Specific [place] 1.010 Urine Protein NEG mg/dL Urine Glucose (UA) NEG mg/dL Urine Ketones NEG mg/dL Urine Occult Blood NEG Urine Nitrite NEG Urine Bilirubin NEG Urine Urobilinogen LESS THAN 2.0 MG/DL Urine Leukocyte Esterase SMALL Urine RBC 1 /hpf Urine WBC 2 /hpf Urine Squamous Epithelial <1 /hpf Cells Urine Hyaline Casts 4 /lpf Microscopic Urinalysis Comment CULT NOT INDICATED Physical Examination HEENT: Normocephalic; atraumatic; no jaundice CHEST: CTA, Diminished CARDIAC: Irregular ABDOMEN: Soft, nondistended, moderate RUQ tenderness; no hepatosplenomegaly; bowel sounds are present in all four quadrants. EXTREMITIES: No clubbing, cyanosis, or edema. SKIN: Normal; no rash; no jaundice. BATTERY BUILDER: Lethargic, oriented, recently medicated Assessment and Plan Plan ASSESSMENT: - Acute cholecystitis. Pt c/o decreased appetite and weight loss x 6 months and nausea x 1.5 weeks. He then developed significant RUQ pain last night. CT scan abdomen and pelvis (05/14/17)-----> Distended gallbladder containing air. Unless there is an explanation for gallbladder air based upon recent therapeutic intervention of some type, the appearance is concerning for cholecystitis with gas producing organisms. Correlation recommended. GS following, plan is for laparoscopic cholecystectomy tomorrow if his INR is reversed. - Leukocytosis, WBC 12.1. Mild - Elevated LFTs, T. Bili 1.3, AST 66, ALT 50, ALk Phosph 304. He had abn. imaging regarding the gb, this could be related to that. He also has long hx of alcohol use, 7 per week. He denies any known hx of cirrhosis , although cirrhosis and portal hypertension and splenomegaly was suspected on March [address] CT scan. Will monitor. - Rectal bleeding. Pt does have a hx of partial colectomy for cancerous colon polyp in October. Pt states stage 1, did not require any further tx. He is on anticoagulation for afib. He has had an ongoing issue with constipation/impactions since his recent hospitalization and is currently taking miralax and senokot at the rehab center. He was straining to move his bowels yesterday and passed flatus, afterwards, he had a small amount of brbpr on the tissue, none in the toilet. He also had another episode this am. He has not had any significant rectal bleeding. His HH 11.7/35.4. We will monitor for significant bleeding or drop in hgb. Protonix. - Constipation, senokot, pericolace, lactulose prn, mom prn. - Abn. Wt. Loss, Decreased appetite. 30 lb weight loss over past 6 months- pt attributes to being in and out of the hospital and states he does not like the food. - Atrial fibrillation, coronary artery disease, htn. Pt is on coumadin for his atrial fibrillation. S/P Cath with stenting in [place] prior to his colectomy. Sees Dr. Hitchcock here. - Osteoarthritis, neuropathy per attending. - Hx colon cancer. He reports that he underwent a colonoscopy in August 2016 and was found to have a cancerous polyp. He initially couldn't remember who did this, but then stated it was Dr. Mosquera. I offered to call his service, but he states that he only saw him the one time for the colonoscopy and requested that we go ahead and see him since we were already there. He had a laparoscopic partial colectomy at [facility] in [place] (he had to have cardiac cath with stenting at [facility] prior to having his surgery). He was told that this was Stage 1 and he did not need further treatment. PLAN: - NPO - GS following, plan is for Lap. Cholecystectomy tomorrow if INR reversed - Cont. bowel regimen - Cont. Protonix for now, if no drop in Hgb, then this can be changed to bid dosing - Monitor HH q6h x 3 - Transfuse as necessary - CBC, CMP, PT/INR in am - Supportive care - Will monitor for signs of active bleeding or significant drop in hgb. - Pt seen and examined by Dr. Bradford and myself and this note is written on his behalf Racheal Parks May 14, 2017 17:10
[2017-05-14] MEDS ORDERED: HYDROmorphone HCL PF 1 MG/ML VIAL IV PUSH PRN (17:15)
[2017-05-14] MEDS: ONDANSETRON HCL 4 MG/2 ML VIAL IVP PRN (18:05)
[2017-05-14 18:22] LABS: HEMATOCRIT 34.2 % (39.0-51.0); REVIEW FLAG FINAL
--- NOTE | 2017-05-14 18:41 | MB ---
cc: OJRDAN LONG MD DATE OF CONSULTATION: 05/14/2017 REASON FOR CONSULTATION: HISTORY OF PRESENT ILLNESS: The patient is an 87 year-old white male with a history of coronary artery disease, coronary bypass and coronary stenting. He developed abdominal pain and rectal bleeding last night. He has not had any chest pain or shortness of breath. He has epigastric pain with radiation to the lower chest and diffusely into the abdomen. He has not had any peripheral edema. PAST MEDICAL HISTORY 1. Positive for coronary artery disease. 2. Coronary bypass stenting. 3. Chronic atrial fibrillation. 4. Sick sinus syndrome. 5. [facility]. [facility]akan dual-chamber pacemaker placement in 10/2015. 6. Cardiovascular disease. 7. Hypertension. 8. Dyslipidemia. 9. Nonsustained ventricular tachycardia. 10. Cardiomyopathy 11. Echocardiogram in 05/2016 showed ejection fraction of 53%. 12. Colon cancer. 13. Colon resection by Dr. Toure at [facility]. MEDICATIONS AT HOME Included: 1. Coumadin. 2. Aspirin. 3. Plavix. 4. Isosorbide 5. Enalapril 6. Metoprolol 7. Torsemide 8. Zetia 9. Ferrous sulfate. 10. Albuterol 11. Omeprazole 12. Flomax. ALLERGIES: DURICEF AMOXICILLIN ATORVASTATIN NIASPAN SPIRONOLACTONE TRENTAL TRICOR SOCIAL HISTORY: The patient does not smoke. He drinks alcohol socially. FAMILY HISTORY: Positive for heart disease in father, mother, brother and sister. REVIEW OF SYSTEMS: Otherwise negative. PHYSICAL EXAMINATION Blood pressure 131/70, pulse 65 and regular. HEENT: Negative. Stool was Lungs: Clear. Heart: Regular with no murmur, gallop and soft. No bruits. Extremities: Without edema. 1000 pulses noted grossly nonfocal. An. There is mild tenderness in the epigastrium. EKG EKG shows paced right. Telemetry shows paced rhythm. LABORATORY DATA Hemoglobin 11.7, potassium 4.2, creatinine 1.4, AST 66 for the history. DIAGNOSIS 1. Acute GI bleeding. 2. Atrial fibrillation, on Coumadin anticoagulation. 3. Coronary artery disease, history of coronary bypass and coronary stenting at [facility] on 09/10/2016. 4. Cardiomyopathy. 5. Colon cancer, status post colon resection. 6. Hypertension. 7. Dyslipidemia. 8. Peripheral vascular disease. DISPOSITION Mr. Chamorro was found to have evidence of GI bleeding. He is fully anticoagulated with warfarin with INR of 2.0. His anticoagulation is being reversed in the emergency room. He is undergoing a CT scan of his abdomen. He will be monitored on telemetry. He has not had any recent angina or heart failure symptoms. I will follow him for cardiology during hospitalization. Dr. Hitchcock, primary ironworker foreman, will see him as outpatient. MD JAMILA Hamilton/DEJON /1:42 PM /6:30 PM
--- NOTE | 2017-05-14 19:37 | MB ---
cc: JAYCEESOURAV DATE OF CONSULTATION: 05/14/2017 REASON FOR CONSULTATION: Acute cholecystitis HISTORY OF PRESENT ILLNESS Mr. Chamorro is a pleasant 87-year-old gentleman who presented to the emergency department this morning with a 12-hour history of severe epigastric abdominal pain associated nausea and vomiting. He states that last evening he developed intense epigastric pain that radiated throughout his abdomen. He developed nausea and vomiting with the pain. He also states he had some chills. He denied any gross fever. He also noted that he started having some bright red blood per rectum. He was brought to the emergency room this morning by his . He has seen and evaluated by Dr. Bo Garcia. Dr. Garcia performed a CT scan of the abdomen and pelvis which showed a distended gallbladder with some air in the gallbladder concerning for abscess. The patient has an extensive cardiac history with previous CABG and then subsequent cardiac stents. He is on anticoagulation for this as well as his history of atrial fibrillation. The patient was seen and evaluated in the emergency department after Dr. Garcia had requested surgical consultation. The patient states the pain is mainly upper abdomen with radiation all over. He has not had any vomiting since he has been in the emergency department. He has been given some pain medicine which has helped a little bit. He has also been given some antibiotics. He is currently receiving FFP for his elevated INR secondary to Coumadin use. He denies previous episodes of right upper quadrant or epigastric abdominal pain. He denies any previous episodes of rectal bleeding. PAST MEDICAL HISTORY: 1. Cardiac arrhythmia. 2. Coronary artery disease. 3. Arthritis. 4. Atrial fibrillation. 5. Colon cancer. 6. Neuropathy. PAST SURGICAL HISTORY: 1. Pacemaker placement. 2. Cardiac bypass, triple bypass in 1988. 3. Cardiac stents placed. 4. Cataract surgery. 5. Laparoscopic colon resection last year. MEDICATIONS: Well-documented in the chart. ALLERGIES: AMOXICILLIN DURICEF ATORVASTATIN SPIRONOLACTONE TRENTAL TRICOR SOCIAL HISTORY: He lives locally with his . He does not smoke or drink. REVIEW OF SYSTEMS: Please see HPI. PHYSICAL EXAMINATION: VITAL SIGNS: Temperature is 98, pulse is 65, blood pressure is 150/80, respiratory rate 20. GENERAL: This is a pleasant elderly gentleman accompanied by his . He appears somewhat uncomfortable. HEENT: Pupils equal, round, reactive to light. Sclera white. Oropharynx clear and moist. NECK: Supple. No masses. LUNGS: Clear to auscultation bilaterally. HEART: S1-S2 no murmur. He has a cardiac pacer in his left upper chest. He has a median sternotomy scar. ABDOMEN: Soft, tender in the epigastric and right upper quadrant regions with some voluntary guarding. He has multiple laparoscopic port site incisions. No obvious hernia. No rebound or guarding. EXTREMITIES: Free range of motion x4. NEUROLOGIC: Alert and oriented x 3. LABORATORY DATA: White blood cell count 12, hemoglobin 11, platelet count is 301. Electrolytes remarkable for hyponatremia at 134, slight elevation of creatinine 1.38, slight elevation in BUN, 47, slight elevation in glucose 115. Slight elevation in bilirubin 1.3, AST 66, ALT 50, alkaline phosphatase 304. Lipase is low at 70. Urinalysis unremarkable. IMAGING STUDIES: CT scan of the abdomen and pelvis demonstrates a dilated gallbladder with some thickening and some air within the gallbladder concerning for possible acute cholecystitis. IMPRESSION: Acute cholecystitis. PLAN: Risks and benefits of open and laparoscopic cholecystectomy, possible cholecystostomy tube was discussed with the patient and his . At this point he needs to have his INR reversed which is currently being done with FFP. The patient is being seen by Dr. Slade, his swaging machine operator who is going to evaluate him for surgical intervention. I advised that we will follow up his LFTs in the morning. If his LFTs are corrected, he may be a candidate for laparoscopic cholecystectomy. If his LFTs worsen or his clinical condition worsens, he may have to have a cholecystostomy tube. This was discussed with him and his at the bedside. Will plan laparoscopic cholecystectomy tomorrow pending his clinical condition overnight and lab work in the morning. MD MADDISON Sultana/DEJON /3:50 PM /7:32 PM
[2017-05-14] MEDS: SODIUM CHLORIDE 0.9% FLUSH 10 ML FLUSH IV FLUSH SCH (20:11)
[2017-05-14] MEDS: LEVOFLOXACIN 500 MG PREMIX INJ 100 ML IV SCH (20:11)
[2017-05-14] MEDS: metroNIDAZOLE 500 MG INJ 100 ML IV SCH ×2 (20:11→23:51)
[2017-05-14] MEDS: DOCUSATE SODIUM 50 MG/SENNA 8.6 MG TAB PO SCH (20:11)
[2017-05-14] MEDS ORDERED: HYDROmorphone HCL PF 1 MG/ML VIAL IV PUSH STA (20:14)
[2017-05-14 23:28] LABS: HEMATOCRIT 32.2 % (39.0-51.0); REVIEW FLAG FINAL
[2017-05-14] MEDS: HYDROmorphone HCL PF 1 MG/ML VIAL IV PUSH PRN (23:50)
[2017-05-15] VITALS (12 sets, daily range): BP systolic 100–148; BP diastolic 55–68; PULSE 20–87; RESP 16–20; TEMP 97.4–98.6; O2SAT 92–96
[2017-05-15] MEDS: HYDROmorphone HCL PF 1 MG/ML VIAL IV PUSH PRN ×5 (06:06→21:01)
[2017-05-15] MEDS: metroNIDAZOLE 500 MG INJ 100 ML IV SCH ×3 (06:07→17:58)
[2017-05-15 07:13] LABS: AUTOMATED NEUTROPHIL # 13.7 TH/MM3 (1.8-7.7); HEMO FLAGS DIFF FINAL; LYMPH % 2.2 % (9.0-44.0); LYMPHOCYTE # 0.3 TH/MM3 (1.0-4.8); MEAN CELL VOLUME 87.8 FL (80.0-100.0); MEAN CORPUSCULAR HEMOGLOBIN 28.3 PG (27.0-34.0); MEAN CORPUSCULAR HGB CONC 32.2 % (32.0-36.0); NEUT % 93.8 % (16.0-70.0); PLATELET COUNT 187 TH/MM3 (150-450); RED BLOOD COUNT 3.64 MIL/MM3 (4.50-5.90); RED CELL DISTRIBUTION WIDTH 14.8 % (11.6-17.2); WHITE BLOOD COUNT 14.6 TH/MM3 (4.0-11.0)
[2017-05-15 07:17] LABS: INTERNATIONAL NORMALIZED RATIO 1.9 RATIO; PROTHROMBIN TIME - PATIENT 21.3 SEC (9.8-11.6)
[2017-05-15 07:38] LABS: ALT (GPT) 53 U/L (12-78); ANION GAP 9 MEQ/L (5-15); BICARBONATE 23.9 MEQ/L (21.0-32.0); BLOOD UREA NITROGEN 43 MG/DL (7-18); CHLORIDE 104 MEQ/L (98-107); POTASSIUM 4.1 MEQ/L (3.5-5.1); SODIUM (NA) 137 MEQ/L (136-145)
[2017-05-15 07:40] LABS: ALKALINE PHOSPHATASE 309 U/L (45-117); AST (GOT) 70 U/L (15-37); GLOMERULAR FILTRATION RATE 38 ML/MIN (>89); TOTAL BILIRUBIN ADULT 1.7 MG/DL (0.2-1.0)
[2017-05-15] MEDS: SODIUM CHLORIDE 0.9% FLUSH 10 ML FLUSH IV FLUSH SCH ×2 (09:00→21:02)
[2017-05-15] MEDS: DOCUSATE SODIUM 50 MG/SENNA 8.6 MG TAB PO SCH ×2 (09:20→21:00)
[2017-05-15] MEDS: PANTOPRAZOLE INJ 80 MG in SODIUM CHLORIDE 0.9% INJ 100 ML IV SCH (09:20)
[2017-05-15] MEDS ORDERED: SODIUM CHLOR 0.9% 250 ML INJ 250 ML IV ONE (12:45)
--- NOTE | 2017-05-15 12:53 | HHI.PR ---
Subjective Remarks Right upper quad tender no fever no n/v no rectal bleeding no hematemesis thirsty NPO INR 1.9 still no cp no sob Objective Objective Results - Vital Signs Date Time Temp Pulse Resp B/P Pulse Ox O2 Delivery O2 Flow Rate FiO2 05/15/17 08:00 97.8 60 20 106/68 92 05/15/17 04:22 97.5 87 18 148/62 93 05/14/17 23:23 98.0 67 20 101/53 92 05/14/17 20:00 67 05/14/17 19:15 98.2 100 24 125/58 100 05/14/17 18:07 60 15 151/63 97 Room Air 05/14/17 18:05 60 22 151/63 96 Room Air 05/14/17 18:01 71 25 155/69 97 Room Air 05/14/17 17:50 98.6 53 24 151/68 96 Room Air 05/14/17 17:48 98.6 60 24 151/68 98 Room Air 05/14/17 17:27 63 12 163/71 97 Room Air 05/14/17 17:20 62 19 163/71 96 Room Air 05/14/17 15:09 98.7 60 12 151/69 99 05/14/17 14:45 98.8 60 19 152/67 98 Room Air 05/14/17 14:36 98.3 65 19 150/67 99 Room Air 05/14/17 14:35 98.3 63 13 150/67 99 Room Air 05/14/17 14:27 98.4 63 16 147/68 98 Room Air 05/14/17 14:13 98.4 61 20 151/66 98 Room Air 05/14/17 13:46 60 12 150/68 98 Room Air I/O 05/14/17 05/14/17 05/14/17 05/15/17 05/15/17 05/15/17 07:00 15:00 23:00 07:00 15:00 23:00 Intake Total 670 ml 1438 ml Output Total 400 ml 225 ml 50 ml Balance -400 ml 445 ml 1388 ml Intake Oral 0 ml 0 ml IV Total 1438 ml FFP 670 ml Output Urine Total 400 ml 225 ml 50 ml # Voids 1 # Bowel Movements 0 0 Result Diagram: 05/15/17 0645 05/15/17 0645 Imaging Last Impressions Abdomen/Pelvis CT 05/14/17 1144 Signed Impressions: Service Date/Time: Sunday, May 14, 2017 13:20 - CONCLUSION: Distended gallbladder containing air. Unless there is an explanation for gallbladder air based upon recent therapeutic intervention of some type, the appearance is concerning for cholecystitis with gas producing organisms. Correlation recommended. Sudarshan Mejias MD Chest X-Ray 05/14/17 1140 Signed Impressions: Service Date/Time: Sunday, May 14, 2017 11:45 - CONCLUSION: 1. No acute cardiopulmonary disease. Frederick Rios MD Other Results Laboratory Tests Test 05/14/17 05/14/17 05/14/17 05/15/17 13:11 17:55 23:13 06:45 Urine Color YELLOW Urine Turbidity CLEAR Urine pH 5.0 Urine Specific [place] 1.010 Urine Protein NEG Urine Glucose (UA) NEG Urine Ketones NEG Urine Occult Blood NEG Urine Nitrite NEG Urine Bilirubin NEG Urine Urobilinogen LESS THAN 2.0 Urine Leukocyte Esterase SMALL Urine RBC 1 Urine WBC 2 Urine Squamous Epithelial <1 Cells Urine Hyaline Casts 4 Microscopic Urinalysis Comment CULT NOT INDICATED Hemoglobin 11.0 10.7 10.3 Hematocrit 34.2 32.2 32.0 White Blood Count 14.6 Red Blood Count 3.64 Mean Corpuscular Volume 87.8 Mean Corpuscular Hemoglobin 28.3 Mean Corpuscular Hemoglobin 32.2 Concent Red Cell Distribution Width 14.8 Platelet Count 187 Mean Platelet Volume 7.3 Neutrophils (%) (Auto) 93.8 Lymphocytes (%) (Auto) 2.2 Monocytes (%) (Auto) 4.0 Eosinophils (%) (Auto) 0.0 Basophils (%) (Auto) 0.0 Neutrophils # (Auto) 13.7 Lymphocytes # (Auto) 0.3 Monocytes # (Auto) 0.6 Eosinophils # (Auto) 0.0 Basophils # (Auto) 0.0 CBC Comment DIFF FINAL Differential Comment Prothrombin Time 21.3 Prothromb Time International 1.9 Ratio Sodium Level 137 Potassium Level 4.1 Chloride Level 104 Carbon Dioxide Level 23.9 Anion Gap 9 Blood Urea Nitrogen 43 Creatinine 1.72 Estimat Glomerular Filtration 38 Rate Random Glucose 132 Calcium Level 8.0 Total Bilirubin 1.7 Aspartate Amino Transf 70 (AST/SGOT) Alanine Aminotransferase 53 (ALT/SGPT) Alkaline Phosphatase 309 Total Protein 6.2 Albumin 2.1 Test 05/15/17 08:26 Blood Bank Comment ROS GI: Abdominal Pain Neuro/MS: Other (right knee, back pain ) Physical Exam Physical Exam GENERAL: This is a well-nourished, well-developed patient SKIN: Skin pale, cool dry. HEAD: Atraumatic. Normocephalic. No temporal or scalp tenderness. EYES: Pupils equal round and reactive. Extraocular motions intact. No scleral icterus. No injection or drainage. ENT: Nose without bleeding, purulent drainage or septal hematoma. Throat without erythema, tonsillar hypertrophy or exudate. Uvula midline. Airway patent. NECK: Trachea midline. No JVD or lymphadenopathy. Supple, nontender, no meningeal signs. CARDIOVASCULAR: Regular rate and rhythm without murmurs, gallops, or rubs. RESPIRATORY: Clear to auscultation. Breath sounds equal bilaterally. No wheezes , rales, or rhonchi. GASTROINTESTINAL: Abdomen soft, tender to palpation to right upper quadrant. Bowel sounds hypoactive 4.Voluntary guarding MUSCULOSKELETAL: No joint abnormality. Slight swelling to the right knee which appears to have improved since last admission. NEUROLOGICAL: Awake, oriented x 3. No focal deficits. Speech clear. Urinary Catheter: No Vascular Central Line Catheter: No A/P Diagnosis: (1) Acute cholecystitis (2) GI bleed (3) Atrial fibrillation (4) History of colon cancer (5) CAD (coronary artery disease) (6) Leukocytosis (7) Osteoarthritis (8) Neuropathy (9) GERD (gastroesophageal reflux disease) (10) HTN (hypertension) (11) HLD (hyperlipidemia) (12) BPH (benign prostatic hyperplasia) (13) Apwnp-ur-cenjndi kidney injury Assessment and Plan 87-year-old elderly male with recent hospitalizations for right knee pain and physical debility, currently in rehabilitation. Presents to the emergency room with complaint of rectal bleeding and sharp abdominal pain associated with nausea vomiting. Patient is on Coumadin. He was also on Plavix but has been stopped. CT of the abdomen with findings of distended gallbladder containing air. Abdominal pain, CT findings of distended gallbladder containing air, concerning for gas producing organisms. Leukocytosis -Continue with IV fluids -Keep nothing by mouth Dilaudid as needed for pain management Continue with Flagyl 500 mg IV every 6 as well as Levaquin 500 milligrams IV daily. -LFTs and t bili elevated -Poss surgery today if INR comes down Rectal bleeding, patient on Coumadin and was also on Plavix. Etiology unclear. Has history of colon cancer. -Gastroenterology has been consulted for evaluation, input is appreciated. -Continue to monitor serial H&H, HH stable Monitor for active bleeding Continue Protonix -no procedure planned at this time. Right knee pain, recent right knee effusion and steroid injection. Has severe osteoarthritis. Patient has been improving, has started to walk. -PT eval and tx -OOB daily Acute on chronic kidney injury, stable, Continue with IV fluids A. fib, has pacemaker pacemaker History of CAD, CABG, EDNA stent August 2016. Was on Plavix. -Coumadin on hold at this time, FFP has been ordered to reverse INR Cardiology has been consulted, case has been discussed with Dr. Slade. He recommends to try to do all procedures during this hospitalization and start patient back on Plavix and Coumadin when stable. From a cardiac standpoint, he has cleared patient to proceed with surgery. -cardiac telemetry -INR 1.9 this morning, FFP 2 units ordered but not given. Order changed to stat and repeat INR after. RN to notify Dr. Modi of INR results BPH Continue home medications when able to take PO Neuropathy Continue home medications when able to take PO SCDs for DVT prophylaxis continue with PPI gtt for GI prophylaxis Repeat labs in am D/W RN D/W Dr. Chakraborty D/W pt and This patient was seen by myself and Dr. Chakraborty, this note is written on his behalf Problem Qualifiers (1) GI bleed: Qualified Code: K92.2 - Gastrointestinal hemorrhage, unspecified gastrointestinal hemorrhage type (2) Atrial fibrillation: Qualified Code: I48.91 - Atrial fibrillation, unspecified type (3) CAD (coronary artery disease): Qualified Code: I25.10 - Coronary artery disease involving ambler coronary artery of ambler heart without angina pectoris (4) Leukocytosis: Qualified Code: D72.829 - Leukocytosis, unspecified type (5) Osteoarthritis: Qualified Code: M15.9 - Osteoarthritis of multiple joints, unspecified osteoarthritis type (6) GERD (gastroesophageal reflux disease): Qualified Code: K21.9 - Gastroesophageal reflux disease, esophagitis presence not specified (7) HTN (hypertension): Qualified Code: I10 - Essential hypertension (8) HLD (hyperlipidemia): Qualified Code: E78.5 - Hyperlipidemia, unspecified hyperlipidemia type (9) BPH (benign prostatic hyperplasia): Qualified Code: N40.0 - Benign prostatic hyperplasia, presence of lower urinary tract symptoms unspecified (10) Clbrr-fp-lusznje kidney injury: Leeanne Franklin May 15, 2017 12:53
[2017-05-15] MEDS ORDERED: FUROSEMIDE 20 MG/2 ML VIAL IV PUSH ONE (14:30)
--- NOTE | 2017-05-15 14:49 | HHI.GIFU ---
Subjective Remarks Resting in bed. Continues to have RUQ pain. Anxious to have surgery for his gallbladder. No further rectal bleeding. D/W patient and cardiology's recommendations to go back on plavix as soon as possible and therefore doing colonoscopy after cholecystectomy prior to going back on Plavix to evaluate his bleeding. Verbalizes understanding. Objective Vitals I&O Vital Signs Date Time Temp Pulse Resp B/P Pulse Ox O2 Delivery O2 Flow Rate FiO2 05/15/17 08:00 97.8 60 20 106/68 92 05/15/17 04:22 97.5 87 18 148/62 93 05/14/17 23:23 98.0 67 20 101/53 92 05/14/17 20:00 67 05/14/17 19:15 98.2 100 24 125/58 100 05/14/17 18:07 60 15 151/63 97 Room Air 05/14/17 18:05 60 22 151/63 96 Room Air 05/14/17 18:01 71 25 155/69 97 Room Air 05/14/17 17:50 98.6 53 24 151/68 96 Room Air 05/14/17 17:48 98.6 60 24 151/68 98 Room Air 05/14/17 17:27 63 12 163/71 97 Room Air 05/14/17 17:20 62 19 163/71 96 Room Air 05/14/17 15:09 98.7 60 12 151/69 99 05/14/17 14:45 98.8 60 19 152/67 98 Room Air I/O 05/14/17 05/14/17 05/14/17 05/15/17 05/15/17 05/15/17 07:00 15:00 23:00 07:00 15:00 23:00 Intake Total 670 ml 1438 ml Output Total 400 ml 225 ml 50 ml Balance -400 ml 445 ml 1388 ml Intake Oral 0 ml 0 ml IV Total 1438 ml FFP 670 ml Output Urine Total 400 ml 225 ml 50 ml # Voids 1 # Bowel Movements 0 0 Laboratory Laboratory Tests Test 05/14/17 05/14/17 05/15/17 05/15/17 17:55 23:13 06:45 08:26 Hemoglobin 11.0 10.7 10.3 Hematocrit 34.2 32.2 32.0 White Blood Count 14.6 Red Blood Count 3.64 Mean Corpuscular Volume 87.8 Mean Corpuscular Hemoglobin 28.3 Mean Corpuscular Hemoglobin 32.2 Concent Red Cell Distribution Width 14.8 Platelet Count 187 Mean Platelet Volume 7.3 Neutrophils (%) (Auto) 93.8 Lymphocytes (%) (Auto) 2.2 Monocytes (%) (Auto) 4.0 Eosinophils (%) (Auto) 0.0 Basophils (%) (Auto) 0.0 Neutrophils # (Auto) 13.7 Lymphocytes # (Auto) 0.3 Monocytes # (Auto) 0.6 Eosinophils # (Auto) 0.0 Basophils # (Auto) 0.0 CBC Comment DIFF FINAL Differential Comment Prothrombin Time 21.3 Prothromb Time International 1.9 Ratio Sodium Level 137 Potassium Level 4.1 Chloride Level 104 Carbon Dioxide Level 23.9 Anion Gap 9 Blood Urea Nitrogen 43 Creatinine 1.72 Estimat Glomerular Filtration 38 Rate Random Glucose 132 Calcium Level 8.0 Total Bilirubin 1.7 Aspartate Amino Transf 70 (AST/SGOT) Alanine Aminotransferase 53 (ALT/SGPT) Alkaline Phosphatase 309 Total Protein 6.2 Albumin 2.1 Blood Bank Comment Imaging Last Impressions Abdomen/Pelvis CT 05/14/17 1144 Signed Impressions: Service Date/Time: Sunday, May 14, 2017 13:20 - CONCLUSION: Distended gallbladder containing air. Unless there is an explanation for gallbladder air based upon recent therapeutic intervention of some type, the appearance is concerning for cholecystitis with gas producing organisms. Correlation recommended. Sudarshan Mejias MD Chest X-Ray 05/14/17 1140 Signed Impressions: Service Date/Time: Sunday, May 14, 2017 11:45 - CONCLUSION: 1. No acute cardiopulmonary disease. Frederick Rios MD Physical Exam HEENT: Normocephalic; atraumatic; no jaundice CHEST: CTA, Diminished CARDIAC: Irregular ABDOMEN: Soft, nondistended, moderate RUQ tenderness; no hepatosplenomegaly; bowel sounds are present in all four quadrants. EXTREMITIES: No clubbing, cyanosis, or edema. SKIN: Normal; no rash; no jaundice. [employer]: Alert and oriented Assessment and Plan Plan ASSESSMENT: - Acute cholecystitis. Pt c/o decreased appetite and weight loss x 6 months and nausea x 1.5 weeks. He then developed significant RUQ pain last night. CT scan abdomen and pelvis (05/14/17)-----> Distended gallbladder containing air. Unless there is an explanation for gallbladder air based upon recent therapeutic intervention of some type, the appearance is concerning for cholecystitis with gas producing organisms. Correlation recommended. GS following, plan is for laparoscopic cholecystectomy later today if INR okay. INR was 1.9, getting 2 units of FFP. Flagyl, Levaquin. - Leukocytosis, WBC 14.6. Flagyl, Levaquin. - Elevated LFTs, T. Bili 1.7, AST 70, ALT 53, ALk Phosph 309. He had abn. imaging regarding the gb, this could be related to that. He also has long hx of alcohol use, 7 per week. He denies any known hx of cirrhosis , although cirrhosis and portal hypertension and splenomegaly was suspected on March [address] CT scan. Will monitor. - Rectal bleeding. Pt does have a hx of partial colectomy for cancerous colon polyp in October. Pt states stage 1, did not require any further tx. He is on anticoagulation for afib. He has had an ongoing issue with constipation/impactions since his recent hospitalization and is currently taking miralax and senokot at the rehab center. He was straining to move his bowels yesterday and passed flatus, afterwards, he had a small amount of brbpr on the tissue, none in the toilet. He also had another episode yesterday morning, but has not had any further episodes. Per cardiology, will need to go back on Plavix as soon as possible and therefore we will plan for colonoscopy after cholecystectomy to evaluate his rectal bleeding before he restarts Plavix. D/W patient and . They are agreeable as long as this is done after his cholecystectomy. 10.3/32.0. No further bleeding. - Constipation, senokot, pericolace, lactulose prn, mom prn. - Abn. Wt. Loss, Decreased appetite. 30 lb weight loss over past 6 months- pt attributes to being in and out of the hospital and states he does not like the food. - Atrial fibrillation, coronary artery disease, htn. Pt has been on coumadin for his atrial fibrillation. S/P Cath with stenting in [place] prior to his colectomy. Sees Dr. Hitchcock here. Was seen by Dr. Slade, needs to go back on Plavix as soon as possible after surgery - LORIE 1.72. - Osteoarthritis, neuropathy per attending. - Hx colon cancer. He reports that he underwent a colonoscopy in August 2016 and was found to have a cancerous polyp. He initially couldn't remember who did this, but then stated it was Dr. Mosquera. I offered to call his service, but he states that he only saw him the one time for the colonoscopy and requested that we go ahead and see him since we were already there. He had a laparoscopic partial colectomy at [facility] in [place] (he had to have cardiac cath with stenting at [facility] prior to having his surgery). He was told that this was Stage 1 and he did not need further treatment. PLAN: - NPO for surgery. - GS following, plan is for Lap. Cholecystectomy today after FFP - D/C Protonix Gtt - Protonix 40mg IV daily - Monitor HH - Transfuse as necessary - CBC, CMP, PT/INR in am - Supportive care - Colonoscopy later this week prior to going back on Plavix - Pt seen and examined by Dr. Bradford and myself and this note is written on his behalf Racheal Parks May 15, 2017 14:48
--- NOTE | 2017-05-15 15:40 | HHI.PR ---
Subjective Subjective Notes C/o RIGHT upper quadrant pain Thirsty Objective Vitals/I&O Vital Signs Date Time Temp Pulse Resp B/P Pulse Ox O2 Delivery O2 Flow Rate FiO2 05/15/17 12:00 97.4 62 20 101/60 96 05/14/17 18:07 Room Air Labs Laboratory Tests Test 05/14/17 05/14/17 05/15/17 05/15/17 17:55 23:13 06:45 08:26 Hemoglobin 11.0 10.7 10.3 Hematocrit 34.2 32.2 32.0 White Blood Count 14.6 Red Blood Count 3.64 Mean Corpuscular Volume 87.8 Mean Corpuscular Hemoglobin 28.3 Mean Corpuscular Hemoglobin 32.2 Concent Red Cell Distribution Width 14.8 Platelet Count 187 Mean Platelet Volume 7.3 Neutrophils (%) (Auto) 93.8 Lymphocytes (%) (Auto) 2.2 Monocytes (%) (Auto) 4.0 Eosinophils (%) (Auto) 0.0 Basophils (%) (Auto) 0.0 Neutrophils # (Auto) 13.7 Lymphocytes # (Auto) 0.3 Monocytes # (Auto) 0.6 Eosinophils # (Auto) 0.0 Basophils # (Auto) 0.0 CBC Comment DIFF FINAL Differential Comment Prothrombin Time 21.3 Prothromb Time International 1.9 Ratio Sodium Level 137 Potassium Level 4.1 Chloride Level 104 Carbon Dioxide Level 23.9 Anion Gap 9 Blood Urea Nitrogen 43 Creatinine 1.72 Estimat Glomerular Filtration 38 Rate Random Glucose 132 Calcium Level 8.0 Total Bilirubin 1.7 Aspartate Amino Transf 70 (AST/SGOT) Alanine Aminotransferase 53 (ALT/SGPT) Alkaline Phosphatase 309 Total Protein 6.2 Albumin 2.1 Blood Bank Comment Cardiovascular: Regular Lungs: Clear Abdomen: Other (RUQ pain with tenderness ) Extremities: No edema A/P Assessment and Plan 87 year old male with extensive cardiac history on anticoagulation with acute cholecystitis -Postpone OR for lap ramos until tomorrow due to elevated INR -Clear liquids tonight; NPO after midnight -Obtain consents -Discussed with Halley Sharif May 15, 2017 15:40
--- NOTE | 2017-05-15 17:32 | PD.CARD.PN ---
Subjective Subjective Remarks No CP or SOB, c/o RUQ pain Objective Medications Current Medications Medications (Trade) Dose Ordered Sig/Arielle Route Start Time Stop Time Status Last Admin (NS 1000 ml Inj) 1,000 ml @ 50 mls/hr Q20H IV 05/14/17 15:25 05/14/17 23:51 (NS Flush) 2 ml UNSCH PRN IV FLUSH 05/14/17 15:30 (NS Flush) 2 ml BID IV FLUSH 05/14/17 21:00 05/15/17 09:00 (Tylenol) 650 mg Q4H PRN PO 05/14/17 15:30 (Zofran Inj) 4 mg Q6H PRN IVP 05/14/17 15:30 05/14/17 18:05 (Narcan Inj) 0.4 mg UNSCH PRN IV 05/14/17 15:30 (Jaqui-Colace) 1 tab BID PO 05/14/17 21:00 05/15/17 09:20 (Milk Of Magnesia Liq) 30 ml Q12H PRN PO 05/14/17 15:30 (Senokot) 17.2 mg Q12H PRN PO 05/14/17 15:30 (Dulcolax Supp) 10 mg DAILY PRN RECTAL 05/14/17 15:30 Lactulose 30 ml 30 ml DAILY PRN PO 05/14/17 15:30 Metronidazole 100 ml @ 100 mls/hr Q6H IV 05/14/17 19:00 05/15/17 13:40 (Levaquin 500 Mg Premix Inj) 100 ml @ 100 mls/hr Q24H IV 05/14/17 19:00 05/14/17 20:11 Hydromorphone HCl 0.5 mg 0.5 mg Q3H PRN IV PUSH 05/14/17 20:13 05/15/17 13:41 (NS 250 ml Inj) 250 ml @ 15 mls/hr ONCE ONCE IV 05/15/17 12:45 05/16/17 05:24 (Protonix Inj) 40 mg Q24H IV PUSH 05/16/17 09:00 Vital Signs / I&O Vital Signs Date Time Temp Pulse Resp B/P Pulse Ox O2 Delivery O2 Flow Rate FiO2 05/15/17 16:00 97.6 60 18 105/56 96 05/15/17 12:00 97.4 62 20 101/60 96 05/15/17 08:00 97.8 60 20 106/68 92 05/15/17 04:22 97.5 87 18 148/62 93 05/14/17 23:23 98.0 67 20 101/53 92 05/14/17 20:00 67 05/14/17 19:15 98.2 100 24 125/58 100 05/14/17 18:07 60 15 151/63 97 Room Air 05/14/17 18:05 60 22 151/63 96 Room Air 05/14/17 18:01 71 25 155/69 97 Room Air 05/14/17 17:50 98.6 53 24 151/68 96 Room Air 05/14/17 17:48 98.6 60 24 151/68 98 Room Air 05/14/17 17:27 63 12 163/71 97 Room Air I/O 05/14/17 05/14/17 05/14/17 05/15/17 05/15/17 05/15/17 07:00 15:00 23:00 07:00 15:00 23:00 Intake Total 670 ml 1438 ml 240 ml Output Total 400 ml 225 ml 50 ml 150 ml Balance -400 ml 445 ml 1388 ml 90 ml Intake Oral 0 ml 0 ml 240 ml IV Total 1438 ml FFP 670 ml Output Urine Total 400 ml 225 ml 50 ml 150 ml # Voids 1 # Bowel Movements 0 0 0 Physical Exam GENERAL: In mild distress sec to abd pain SKIN: Warm and dry. HEAD: Normocephalic. EYES: No scleral icterus. No injection or drainage. NECK: Supple, trachea midline. No JVD or lymphadenopathy. CARDIOVASCULAR: Regular rate and rhythm without murmurs, gallops, or rubs. RESPIRATORY: Breath sounds equal bilaterally. No accessory muscle use. GASTROINTESTINAL: Abdomen soft, tender RUQ, nondistended. MUSCULOSKELETAL: No cyanosis, or edema. Laboratory Laboratory Tests Test 05/14/17 05/14/17 05/15/17 05/15/17 17:55 23:13 06:45 08:26 Hemoglobin 11.0 GM/DL 10.7 GM/DL 10.3 GM/DL Hematocrit 34.2 % 32.2 % 32.0 % White Blood Count 14.6 TH/MM3 Red Blood Count 3.64 MIL/MM3 Mean Corpuscular Volume 87.8 FL Mean Corpuscular Hemoglobin 28.3 PG Mean Corpuscular Hemoglobin 32.2 % Concent Red Cell Distribution Width 14.8 % Platelet Count 187 TH/MM3 Mean Platelet Volume 7.3 FL Neutrophils (%) (Auto) 93.8 % Lymphocytes (%) (Auto) 2.2 % Monocytes (%) (Auto) 4.0 % Eosinophils (%) (Auto) 0.0 % Basophils (%) (Auto) 0.0 % Neutrophils # (Auto) 13.7 TH/MM3 Lymphocytes # (Auto) 0.3 TH/MM3 Monocytes # (Auto) 0.6 TH/MM3 Eosinophils # (Auto) 0.0 TH/MM3 Basophils # (Auto) 0.0 TH/MM3 CBC Comment DIFF FINAL Differential Comment Prothrombin Time 21.3 SEC Prothromb Time International 1.9 RATIO Ratio Sodium Level 137 MEQ/L Potassium Level 4.1 MEQ/L Chloride Level 104 MEQ/L Carbon Dioxide Level 23.9 MEQ/L Anion Gap 9 MEQ/L Blood Urea Nitrogen 43 MG/DL Creatinine 1.72 MG/DL Estimat Glomerular Filtration 38 ML/MIN Rate Random Glucose 132 MG/DL Calcium Level 8.0 MG/DL Total Bilirubin 1.7 MG/DL Aspartate Amino Transf 70 U/L (AST/SGOT) Alanine Aminotransferase 53 U/L (ALT/SGPT) Alkaline Phosphatase 309 U/L Total Protein 6.2 GM/DL Albumin 2.1 GM/DL Blood Bank Comment Imaging Last Impressions Abdomen/Pelvis CT 05/14/17 1144 Signed Impressions: Service Date/Time: Sunday, May 14, 2017 13:20 - CONCLUSION: Distended gallbladder containing air. Unless there is an explanation for gallbladder air based upon recent therapeutic intervention of some type, the appearance is concerning for cholecystitis with gas producing organisms. Correlation recommended. Sudarshan Mejias MD Chest X-Ray 05/14/17 1140 Signed Impressions: Service Date/Time: Sunday, May 14, 2017 11:45 - CONCLUSION: 1. No acute cardiopulmonary disease. Frederick Rios MD Assessment and Plan Problem List: (1) GI bleed (2) Atrial fibrillation (3) CAD (coronary artery disease) (4) Cardiomyopathy (5) HTN (hypertension) (6) HLD (hyperlipidemia) (7) Pacemaker Assessment and Plan No new cardiac issues, remains stable from cardiac standpoint. Cholecystectomy planned for tomorrow, the risk of cardiac complications is increased, but not prohibitive. Endoscopy likely later. Recommend to restart anticoagulation as soon as possible due to his h/o a fib and drug eluting stent placement. Problem Qualifiers (1) GI bleed: Qualified Code: K92.2 - Gastrointestinal hemorrhage, unspecified gastrointestinal hemorrhage type (2) Atrial fibrillation: Qualified Code: I48.91 - Atrial fibrillation, unspecified type (3) CAD (coronary artery disease): Qualified Code: I25.10 - Coronary artery disease involving chilkoot coronary artery of chilkoot heart without angina pectoris (4) HTN (hypertension): Qualified Code: I10 - Essential hypertension (5) HLD (hyperlipidemia): Qualified Code: E78.5 - Hyperlipidemia, unspecified hyperlipidemia type Sarbjit Slade MD May 15, 2017 17:32
[2017-05-15] MEDS: LEVOFLOXACIN 500 MG PREMIX INJ 100 ML IV SCH (17:58)
[2017-05-15 22:26] LABS: INTERNATIONAL NORMALIZED RATIO 1.8 RATIO
--- NOTE | 2017-05-15 23:55 | EKG ---
Date Performed: 05/14/2017 Time Performed: 11:24:47 PTAGE: 87 years EKG: ELECTRONIC VENTRICULAR PACEMAKER ABNORMAL RHYTHM ECG NO PREVIOUS TRACING DOCTOR: Sarbjit Slade Interpretating Date/Time 05/15/2017 23:54:25
[2017-05-16] MEDS: metroNIDAZOLE 500 MG INJ 100 ML IV SCH ×4 (00:14→18:34)
[2017-05-16 04:00] VITALS: BP 105/52; PULSE 69; RESP 18; TEMP 97.7; O2SAT 97
[2017-05-16 07:02] LABS: AUTOMATED NEUTROPHIL # 7.9 TH/MM3 (1.8-7.7); BASOPHIL % 0.2 % (0.0-2.0); EOSINOPHIL % 0.1 % (0.0-4.0); HEMATOCRIT 28.5 % (39.0-51.0); HEMO FLAGS DIFF FINAL; LYMPH % 4.3 % (9.0-44.0); LYMPHOCYTE # 0.4 TH/MM3 (1.0-4.8); MEAN CELL VOLUME 87.3 FL (80.0-100.0); MEAN CORPUSCULAR HEMOGLOBIN 29.5 PG (27.0-34.0); MEAN CORPUSCULAR HGB CONC 33.8 % (32.0-36.0); MONO % 3.2 % (0.0-8.0); NEUT % 92.2 % (16.0-70.0); PLATELET COUNT 133 TH/MM3 (150-450); RED BLOOD COUNT 3.26 MIL/MM3 (4.50-5.90); RED CELL DISTRIBUTION WIDTH 15.3 % (11.6-17.2); WHITE BLOOD COUNT 8.6 TH/MM3 (4.0-11.0)
[2017-05-16 07:06] LABS: INTERNATIONAL NORMALIZED RATIO 1.8 RATIO; PROTHROMBIN TIME - PATIENT 20.9 SEC (9.8-11.6)
[2017-05-16 07:28] LABS: ANION GAP 8 MEQ/L (5-15); AST (GOT) 43 U/L (15-37); BICARBONATE 25.5 MEQ/L (21.0-32.0); BLOOD UREA NITROGEN 51 MG/DL (7-18); CHLORIDE 105 MEQ/L (98-107); GLOMERULAR FILTRATION RATE 38 ML/MIN (>89); POTASSIUM 3.9 MEQ/L (3.5-5.1); SODIUM (NA) 138 MEQ/L (136-145)
[2017-05-16 07:29] LABS: ALT (GPT) 39 U/L (12-78)
[2017-05-16 07:31] LABS: ALKALINE PHOSPHATASE 226 U/L (45-117); TOTAL BILIRUBIN ADULT 1.5 MG/DL (0.2-1.0)
[2017-05-16 08:00] VITALS: BP 114/58; PULSE 60; RESP 20; TEMP 97.9; O2SAT 93
[2017-05-16] MEDS ORDERED: SODIUM CHLOR 0.9% 250 ML INJ 250 ML IV ONE (08:00)
[2017-05-16] MEDS ORDERED: FUROSEMIDE 20 MG/2 ML VIAL IV ONE (08:00)
[2017-05-16] MEDS: PANTOPRAZOLE SODIUM 40 MG VIAL IV PUSH SCH (08:17)
[2017-05-16] MEDS: DOCUSATE SODIUM 50 MG/SENNA 8.6 MG TAB PO SCH ×2 (08:17→20:25)
[2017-05-16] MEDS: HYDROmorphone HCL PF 1 MG/ML VIAL IV PUSH PRN (08:18)
[2017-05-16] MEDS: ONDANSETRON HCL 4 MG/2 ML VIAL IVP PRN (08:37)
[2017-05-16] MEDS: SODIUM CHLORIDE 0.9% FLUSH 10 ML FLUSH IV FLUSH SCH ×2 (08:49→20:25)
[2017-05-16 08:53] VITALS: PULSE 60
[2017-05-16] MEDS ORDERED: PROTHROMBIN COMPLEX CONC INJ 1,500 UNITS in SYRINGE/BAG 1 EA IV ONE ×2 (10:00→11:00)
--- NOTE | 2017-05-16 10:21 | HHI.PR ---
Subjective Remarks Right upper quad tender no fever no n/v no rectal bleeding no hematemesis NPO INR 1.9 no cp no sob to OR today Objective Objective Results - Vital Signs Date Time Temp Pulse Resp B/P Pulse Ox O2 Delivery O2 Flow Rate FiO2 05/16/17 08:53 60 05/16/17 08:00 97.9 60 20 114/58 93 05/16/17 04:26 Room Air 05/16/17 04:00 97.7 69 18 105/52 97 05/16/17 00:41 Room Air 05/15/17 20:17 60 05/15/17 20:00 Room Air 05/15/17 20:00 97.7 60 16 108/55 96 05/15/17 16:00 97.6 60 18 105/56 96 05/15/17 15:00 98.6 84 20 106/57 05/15/17 14:45 98.4 82 20 106/55 05/15/17 14:40 98.0 80 104/57 05/15/17 13:15 97.6 20 20 105/58 05/15/17 13:00 97.4 20 20 100/60 05/15/17 12:00 97.4 62 20 101/60 96 I/O 05/15/17 05/15/17 05/15/17 05/16/17 05/16/17 05/16/17 07:00 15:00 23:00 07:00 15:00 23:00 Intake Total 1438 ml 240 ml 520 ml 400 ml Output Total 50 ml 150 ml 0 ml 800 ml Balance 1388 ml 90 ml 520 ml -400 ml Intake Oral 0 ml 240 ml 120 ml 0 ml IV Total 1438 ml 400 ml 400 ml Output Urine Total 50 ml 150 ml 0 ml 800 ml # Bowel Movements 0 0 1 0 Result Diagram: 05/16/17 0644 05/16/17 0644 Imaging Last Impressions Abdomen/Pelvis CT 05/14/17 1144 Signed Impressions: Service Date/Time: Sunday, May 14, 2017 13:20 - CONCLUSION: Distended gallbladder containing air. Unless there is an explanation for gallbladder air based upon recent therapeutic intervention of some type, the appearance is concerning for cholecystitis with gas producing organisms. Correlation recommended. Sudarshan Mejias MD Chest X-Ray 05/14/17 1140 Signed Impressions: Service Date/Time: Sunday, May 14, 2017 11:45 - CONCLUSION: 1. No acute cardiopulmonary disease. Frederick Rios MD Other Results Laboratory Tests Test 05/15/17 05/16/17 05/16/17 21:52 06:44 07:47 Prothrombin Time 20.0 20.9 Prothromb Time International 1.8 1.8 Ratio White Blood Count 8.6 Red Blood Count 3.26 Hemoglobin 9.6 Hematocrit 28.5 Mean Corpuscular Volume 87.3 Mean Corpuscular Hemoglobin 29.5 Mean Corpuscular Hemoglobin 33.8 Concent Red Cell Distribution Width 15.3 Platelet Count 133 Mean Platelet Volume 7.7 Neutrophils (%) (Auto) 92.2 Lymphocytes (%) (Auto) 4.3 Monocytes (%) (Auto) 3.2 Eosinophils (%) (Auto) 0.1 Basophils (%) (Auto) 0.2 Neutrophils # (Auto) 7.9 Lymphocytes # (Auto) 0.4 Monocytes # (Auto) 0.3 Eosinophils # (Auto) 0.0 Basophils # (Auto) 0.0 CBC Comment DIFF FINAL Differential Comment Sodium Level 138 Potassium Level 3.9 Chloride Level 105 Carbon Dioxide Level 25.5 Anion Gap 8 Blood Urea Nitrogen 51 Creatinine 1.73 Estimat Glomerular Filtration 38 Rate Random Glucose 105 Calcium Level 8.2 Total Bilirubin 1.5 Aspartate Amino Transf 43 (AST/SGOT) Alanine Aminotransferase 39 (ALT/SGPT) Alkaline Phosphatase 226 Total Protein 5.9 Albumin 1.9 Blood Bank Comment ROS General: No: Fatigue, Weakness HEENT: No: Sore Throat, Dysphagia Cardiac: No: Chest Pain, Edema, Palpitations Pulmonary: No: Cough, SOB, Wheezing 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 HEAD: Atraumatic. Normocephalic. No temporal or scalp tenderness. EYES: Pupils equal round and reactive. Extraocular motions intact. No scleral icterus. No injection or drainage. ENT: Nose without bleeding, purulent drainage or septal hematoma. Throat without erythema, tonsillar hypertrophy or exudate. Uvula midline. Airway patent. NECK: Trachea midline. No JVD or lymphadenopathy. Supple, nontender, no meningeal signs. CARDIOVASCULAR: Regular rate and rhythm without murmurs, gallops, or rubs. RESPIRATORY: Clear to auscultation. Breath sounds equal bilaterally. No wheezes , rales, or rhonchi. GASTROINTESTINAL: Abdomen soft, tender to palpation to right upper quadrant. Bowel sounds hypoactive 4.Voluntary guarding MUSCULOSKELETAL: No joint abnormality. Slight swelling to the right knee which appears to have improved since last admission. NEUROLOGICAL: Awake, oriented x 3. No focal deficits. Speech clear. Urinary Catheter: No Vascular Central Line Catheter: No A/P Diagnosis: (1) Acute cholecystitis (2) GI bleed (3) Atrial fibrillation (4) History of colon cancer (5) CAD (coronary artery disease) (6) Leukocytosis (7) Osteoarthritis (8) Neuropathy (9) GERD (gastroesophageal reflux disease) (10) HTN (hypertension) (11) HLD (hyperlipidemia) (12) BPH (benign prostatic hyperplasia) (13) Umtaz-dz-kavzupj kidney injury Assessment and Plan 87-year-old elderly male with recent hospitalizations for right knee pain and physical debility, currently in rehabilitation. Presents to the emergency room with complaint of rectal bleeding and sharp abdominal pain associated with nausea vomiting. Patient is on Coumadin. He was also on Plavix but has been stopped. CT of the abdomen with findings of distended gallbladder containing air. Abdominal pain, CT findings of distended gallbladder containing air, concerning for gas producing organisms. Leukocytosis -Continue with IV fluids -Keep nothing by mouth Dilaudid as needed for pain management Continue with Flagyl 500 mg IV every 6 as well as Levaquin 500 milligrams IV daily. -LFTs and t bili elevated -INR 1.8, given , d/w K Dana LICENSED PSYCHOLOGIST K centra 1500 units, repeat INR after infusion -to OR today Rectal bleeding, patient on Coumadin and was also on Plavix. Etiology unclear. Has history of colon cancer. -Gastroenterology has been consulted for evaluation, input is appreciated. -Continue to monitor serial H&H, HH stable Monitor for active bleeding, none noted. Continue Protonix 40 mg IV daily. -no procedure planned at this time. Right knee pain, recent right knee effusion and steroid injection. Has severe osteoarthritis. Patient has been improving, has started to walk. -PT eval and tx -OOB daily Acute on chronic kidney injury, stable, Continue with IV fluids Jefry ruby, has pacemaker pacemaker History of CAD, CABG, EDNA stent August 2016. Was on Plavix. -Coumadin on hold at this time, FFP has been ordered to reverse INR Cardiology has been consulted, case has been discussed with Dr. Slade. He recommends to try to do all procedures during this hospitalization and start patient back on Plavix and Coumadin when stable. From a cardiac standpoint, he has cleared patient to proceed with surgery. -cardiac telemetry -INR 1.8, s/p 4 units FFP. Will receive K centra. BPH Continue home medications when able to take PO Neuropathy Continue home medications when able to take PO SCDs for DVT prophylaxis continue with PPI gtt for GI prophylaxis Repeat labs in am To OR after K centra is given and repeat INR is done D/W RN D/W Dr. Chakraborty D/W pt and This patient was seen by myself and Dr. Chakraborty, this note is written on his behalf Problem Qualifiers (1) GI bleed: Qualified Code: K92.2 - Gastrointestinal hemorrhage, unspecified gastrointestinal hemorrhage type (2) Atrial fibrillation: Qualified Code: I48.91 - Atrial fibrillation, unspecified type (3) CAD (coronary artery disease): Qualified Code: I25.10 - Coronary artery disease involving [place] coronary artery of [place] heart without angina pectoris (4) Leukocytosis: Qualified Code: D72.829 - Leukocytosis, unspecified type (5) Osteoarthritis: Qualified Code: M15.9 - Osteoarthritis of multiple joints, unspecified osteoarthritis type (6) GERD (gastroesophageal reflux disease): Qualified Code: K21.9 - Gastroesophageal reflux disease, esophagitis presence not specified (7) HTN (hypertension): Qualified Code: I10 - Essential hypertension (8) HLD (hyperlipidemia): Qualified Code: E78.5 - Hyperlipidemia, unspecified hyperlipidemia type (9) BPH (benign prostatic hyperplasia): Qualified Code: N40.0 - Benign prostatic hyperplasia, presence of lower urinary tract symptoms unspecified (10) Odlrv-hf-jeblwki kidney injury: Leeanne Franklin May 16, 2017 10:21
[2017-05-16] MEDS ORDERED: BUPIVACAINE/EPINEPHRINE 0.5% 50 ML VIAL ONE (10:47)
[2017-05-16] MEDS ORDERED: PROTHROMBIN COMPLEX IV ONE (11:00)
[2017-05-16] MEDS ORDERED: PROPOFOL 200 MG/20 ML AMP IV ONE (12:00)
[2017-05-16] MEDS ORDERED: ePHEDrine/NS 25 MG/5 ML SYR IV ONE (12:00)
[2017-05-16] MEDS ORDERED: PHENYLEPH/NS 1000 MCG/10 ML SYR IV ONE (12:00)
[2017-05-16] MEDS ORDERED: NEOSTIGMINE 3 MG/3 ML SYR IV ONE (12:00)
[2017-05-16] MEDS ORDERED: ONDANSETRON HCL 4 MG/2 ML VIAL IV PUSH ONE (12:00)
--- NOTE | 2017-05-16 12:37 | HHI.PR ---
Immediate Post Op Note Procedure Date: May 16, 2017 Pre Op Diagnosis: acute cholecystitis Post Op Diagnosis: gangrenous cholecystitis Surgeon: Eddie Modi Poured Pipe Maker(s): masha mejía ms3 Procedure: lap ramos with drain placement Findings: gallbladder Specimen(s) removed: gallbladder Estimated blood loss: minimal Anesthesia: General Drains: AMANDA Patient to: PACU Patient Condition: Good Eddie Modi MD May 16, 2017 12:37
[2017-05-16] MEDS ORDERED: SUGAMMADEX SODIUM 200 MG/2 ML VIAL IV PUSH ONE ×2 (12:47)
[2017-05-16] MEDS ORDERED: DEXAMETHASONE SOD PHOS 4 MG/ML VIAL ONE (13:00)
[2017-05-16] MEDS ORDERED: *ONDANSETRON 4 MG VIAL PERIprocedural Use ONLY ONE (13:05)
[2017-05-16] MEDS ORDERED: PHYTONADIONE INJ 10 MG in SODIUM CHLORIDE 0.9% INJ 50 ML IV ONE (13:15)
[2017-05-16] MEDS ORDERED: *PROMETHAZINE 25 MG/ML VIAL PERIprocedural use ONLY ONE (13:20)
[2017-05-16] MEDS ORDERED: *morphine SULFATE 8 MG/ML PERIprocedure ONLY ONE (13:20)
[2017-05-16] MEDS ORDERED: DO NOT ADM ANY ANTICOAGULANT DRUGS PRN (13:45)
[2017-05-16] MEDS ORDERED: fentaNYL CITRATE 250 MCG/5 ML AMP ONE (14:11)
[2017-05-16] MEDS: SODIUM CHLOR 0.9% 1000 ML INJ 1,000 ML IV SCH (14:15)
--- NOTE | 2017-05-16 15:52 | HHI.GIFU ---
Subjective Remarks Pt resting in bed, at bedside, recently back from cholecystectomy. Does not feel he could tolerate bowel prep but agreeable to trying tomorrow. Objective Vitals I&O Vital Signs Date Time Temp Pulse Resp B/P Pulse Ox O2 Delivery O2 Flow Rate FiO2 05/16/17 08:53 60 05/16/17 08:00 97.9 60 20 114/58 93 05/16/17 07:00 Room Air 05/16/17 04:26 Room Air 05/16/17 04:00 97.7 69 18 105/52 97 05/16/17 00:41 Room Air 05/15/17 20:17 60 05/15/17 20:00 Room Air 05/15/17 20:00 97.7 60 16 108/55 96 05/15/17 16:00 97.6 60 18 105/56 96 I/O 05/15/17 05/15/17 05/15/17 05/16/17 05/16/17 05/16/17 07:00 15:00 23:00 07:00 15:00 23:00 Intake Total 1438 ml 240 ml 520 ml 400 ml 0 ml Output Total 50 ml 150 ml 0 ml 800 ml Balance 1388 ml 90 ml 520 ml -400 ml 0 ml Intake Oral 0 ml 240 ml 120 ml 0 ml 0 ml IV Total 1438 ml 400 ml 400 ml Output Urine Total 50 ml 150 ml 0 ml 800 ml # Voids 3 # Bowel Movements 0 0 1 0 2 Laboratory Laboratory Tests Test 05/15/17 05/16/17 05/16/17 21:52 06:44 07:47 Prothrombin Time 20.0 20.9 Prothromb Time International 1.8 1.8 Ratio White Blood Count 8.6 Red Blood Count 3.26 Hemoglobin 9.6 Hematocrit 28.5 Mean Corpuscular Volume 87.3 Mean Corpuscular Hemoglobin 29.5 Mean Corpuscular Hemoglobin 33.8 Concent Red Cell Distribution Width 15.3 Platelet Count 133 Mean Platelet Volume 7.7 Neutrophils (%) (Auto) 92.2 Lymphocytes (%) (Auto) 4.3 Monocytes (%) (Auto) 3.2 Eosinophils (%) (Auto) 0.1 Basophils (%) (Auto) 0.2 Neutrophils # (Auto) 7.9 Lymphocytes # (Auto) 0.4 Monocytes # (Auto) 0.3 Eosinophils # (Auto) 0.0 Basophils # (Auto) 0.0 CBC Comment DIFF FINAL Differential Comment Sodium Level 138 Potassium Level 3.9 Chloride Level 105 Carbon Dioxide Level 25.5 Anion Gap 8 Blood Urea Nitrogen 51 Creatinine 1.73 Estimat Glomerular Filtration 38 Rate Random Glucose 105 Calcium Level 8.2 Total Bilirubin 1.5 Aspartate Amino Transf 43 (AST/SGOT) Alanine Aminotransferase 39 (ALT/SGPT) Alkaline Phosphatase 226 Total Protein 5.9 Albumin 1.9 Blood Bank Comment Imaging Last Impressions Abdomen/Pelvis CT 05/14/17 1144 Signed Impressions: Service Date/Time: Sunday, May 14, 2017 13:20 - CONCLUSION: Distended gallbladder containing air. Unless there is an explanation for gallbladder air based upon recent therapeutic intervention of some type, the appearance is concerning for cholecystitis with gas producing organisms. Correlation recommended. Sudarshan Mejias MD Chest X-Ray 05/14/17 1140 Signed Impressions: Service Date/Time: Sunday, May 14, 2017 11:45 - CONCLUSION: 1. No acute cardiopulmonary disease. Frederick Rios MD Physical Exam HEENT: Normocephalic; atraumatic; no jaundice CHEST: CTA, Diminished CARDIAC: Irregular ABDOMEN: Soft, nondistended, mild diffuse TTP, drain RUQ with serosanguineous drainage; no hepatosplenomegaly; bowel sounds are present in all four quadrants. EXTREMITIES: No clubbing, cyanosis, or edema. SKIN: Normal; no rash; no jaundice. 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 Pt c/o decreased appetite and weight loss x 6 months and nausea x 1.5 weeks. He then developed significant RUQ pain last night. CT scan abdomen and pelvis (05/14/17)-----> Distended gallbladder containing air. Unless there is an explanation for gallbladder air based upon recent therapeutic intervention of some type, the appearance is concerning for cholecystitis with gas producing organisms. Correlation recommended. s/p lap ramos. Flagyl, Levaquin. - Leukocytosis, WBC 14.6. Flagyl, Levaquin. - Elevated LFTs, trending down. He had abn. imaging regarding the gb, this could be related to that. He also has long hx of alcohol use, 7 per week. He denies any known hx of cirrhosis , although cirrhosis and portal hypertension and splenomegaly was suspected on March [address] scan. Will monitor. - Rectal bleeding. Pt does have a hx of partial colectomy for cancerous colon polyp in October. Pt states stage 1, did not require any further tx. He is on anticoagulation for afib. He has had an ongoing issue with constipation/impactions since his recent hospitalization and is currently taking miralax and senokot at the rehab center. He was straining to move his bowels yesterday and passed flatus, afterwards, he had a small amount of brbpr on the tissue, none in the toilet. He also had another episode yesterday morning, but has not had any further episodes. Per cardiology, will need to go back on Plavix as soon as possible and therefore we will plan for colonoscopy after cholecystectomy to evaluate his rectal bleeding before he restarts Plavix. D/W patient and . They are agreeable as long as this is done after his cholecystectomy. Hgb 9.6. No further bleeding. - Constipation, senokot, pericolace, lactulose prn, mom prn. - Abn. Wt. Loss, Decreased appetite. 30 lb weight loss over past 6 months- pt attributes to being in and out of the hospital and states he does not like the food. - Atrial fibrillation, coronary artery disease, htn. Pt has been on coumadin for his atrial fibrillation. S/P Cath with stenting in [place] prior to his colectomy. Sees Dr. Hitchcock here. Was seen by Dr. Slade, needs to go back on Plavix as soon as possible after surgery - LORIE 1.72. - Osteoarthritis, neuropathy per attending. - Hx colon cancer. He reports that he underwent a colonoscopy in August 2016 and was found to have a cancerous polyp. He initially couldn't remember who did this, but then stated it was Dr. Mosquera. I offered to call his service, but he states that he only saw him the one time for the colonoscopy and requested that we go ahead and see him since we were already there. He had a laparoscopic partial colectomy at [facility] in [place] (he had to have cardiac cath with stenting at [facility] prior to having his surgery). He was told that this was Stage 1 and he did not need further treatment. PLAN: - colonoscopy saturdayMay 18 - clears tomorrow - NPO after midnight saturday night - GoLytely prep saturday evening - obtain consents - Protonix 40mg IV daily - Monitor HH - Transfuse as necessary - CBC, CMP, PT/INR in am - Supportive care - Pt seen and examined by Dr. Bradford and myself and this note is written on his behalf Priscila Raza May 16, 2017 15:52
[2017-05-16 16:00] VITALS: BP 130/58; PULSE 60; RESP 20; TEMP 97.9; O2SAT 94
[2017-05-16] MEDS: LEVOFLOXACIN 500 MG PREMIX INJ 100 ML IV SCH (17:02)
--- NOTE | 2017-05-16 18:50 | PD.CARD.PN ---
Subjective Subjective Remarks No CP or SOB, tolerated surgery well Objective Medications Current Medications Medications (Trade) Dose Ordered Sig/Arielle Route Start Time Stop Time Status Last Admin (NS 1000 ml Inj) 1,000 ml @ 50 mls/hr Q20H IV 05/14/17 15:25 05/16/17 14:15 (NS Flush) 2 ml UNSCH PRN IV FLUSH 05/14/17 15:30 (NS Flush) 2 ml BID IV FLUSH 05/14/17 21:00 05/16/17 08:49 (Tylenol) 650 mg Q4H PRN PO 05/14/17 15:30 (Zofran Inj) 4 mg Q6H PRN IVP 05/14/17 15:30 05/16/17 08:37 (Narcan Inj) 0.4 mg UNSCH PRN IV 05/14/17 15:30 (Jaqui-Colace) 1 tab BID PO 05/14/17 21:00 05/15/17 09:20 (Milk Of Magnesia Liq) 30 ml Q12H PRN PO 05/14/17 15:30 (Senokot) 17.2 mg Q12H PRN PO 05/14/17 15:30 (Dulcolax Supp) 10 mg DAILY PRN RECTAL 05/14/17 15:30 Lactulose 30 ml 30 ml DAILY PRN PO 05/14/17 15:30 Metronidazole 100 ml @ 100 mls/hr Q6H IV 05/14/17 19:00 05/16/17 18:34 (Levaquin 500 Mg Premix Inj) 100 ml @ 100 mls/hr Q24H IV 05/14/17 19:00 05/16/17 17:02 (Dilaudid Pf Inj) 0.5 mg Q3H PRN IV PUSH 05/14/17 20:13 05/16/17 08:18 (Protonix Inj) 40 mg Q24H IV PUSH 05/16/17 09:00 05/16/17 08:17 Miscellaneous Information ALL NURSING DEPARTME... UNSCH PRN .XX 05/16/17 13:45 05/17/17 13:44 (Miralax) 256 gm ONCE ONCE PO 05/17/17 16:00 05/17/17 16:01 UNV (Dulcolax Ec) 20 mg ONCE ONCE PO 05/17/17 20:00 05/17/17 20:01 UNV Vital Signs / I&O Vital Signs Date Time Temp Pulse Resp B/P Pulse Ox O2 Delivery O2 Flow Rate FiO2 05/16/17 16:00 97.9 60 20 130/58 94 05/16/17 14:13 97.9 62 16 138/62 100 Nasal Cannula 3 05/16/17 14:00 60 16 137/63 100 Nasal Cannula 3 05/16/17 13:45 60 16 137/63 100 Nasal Cannula 3 05/16/17 13:30 62 17 153/65 99 Nasal Cannula 3 05/16/17 13:15 60 15 150/66 97 Nasal Cannula 3 05/16/17 13:10 97.9 59 15 146/67 94 Nasal Cannula 3 05/16/17 08:53 60 05/16/17 08:00 97.9 60 20 114/58 93 05/16/17 07:00 Room Air 05/16/17 04:26 Room Air 05/16/17 04:00 97.7 69 18 105/52 97 05/16/17 00:41 Room Air 05/15/17 20:17 60 05/15/17 20:00 Room Air 05/15/17 20:00 97.7 60 16 108/55 96 I/O 05/15/17 05/15/17 05/15/17 05/16/17 05/16/17 05/16/17 07:00 15:00 23:00 07:00 15:00 23:00 Intake Total 1438 ml 240 ml 520 ml 400 ml 700 ml Output Total 50 ml 150 ml 0 ml 800 ml 1420 ml Balance 1388 ml 90 ml 520 ml -400 ml -720 ml Intake Oral 0 ml 240 ml 120 ml 0 ml 0 ml IV Total 1438 ml 400 ml 400 ml 200 ml Other 500 ml Output Urine Total 50 ml 150 ml 0 ml 800 ml 1100 ml Drainage Total 295 ml Estimated Blood Loss 25 ml # Voids 3 # Bowel Movements 0 0 1 0 2 Physical Exam GENERAL: In mild distress sec to post surg pain SKIN: Warm and dry. HEAD: Normocephalic. EYES: No scleral icterus. No injection or drainage. NECK: Supple, trachea midline. No JVD or lymphadenopathy. CARDIOVASCULAR: Regular rate and rhythm without murmurs, gallops, or rubs. RESPIRATORY: Breath sounds equal bilaterally. No accessory muscle use. GASTROINTESTINAL: Abdomen soft, tender RUQ, nondistended. MUSCULOSKELETAL: No cyanosis, or edema. Laboratory Laboratory Tests Test 05/15/17 05/16/17 05/16/17 21:52 06:44 07:47 Prothrombin Time 20.0 SEC 20.9 SEC Prothromb Time International 1.8 RATIO 1.8 RATIO Ratio White Blood Count 8.6 TH/MM3 Red Blood Count 3.26 MIL/MM3 Hemoglobin 9.6 GM/DL Hematocrit 28.5 % Mean Corpuscular Volume 87.3 FL Mean Corpuscular Hemoglobin 29.5 PG Mean Corpuscular Hemoglobin 33.8 % Concent Red Cell Distribution Width 15.3 % Platelet Count 133 TH/MM3 Mean Platelet Volume 7.7 FL Neutrophils (%) (Auto) 92.2 % Lymphocytes (%) (Auto) 4.3 % Monocytes (%) (Auto) 3.2 % Eosinophils (%) (Auto) 0.1 % Basophils (%) (Auto) 0.2 % Neutrophils # (Auto) 7.9 TH/MM3 Lymphocytes # (Auto) 0.4 TH/MM3 Monocytes # (Auto) 0.3 TH/MM3 Eosinophils # (Auto) 0.0 TH/MM3 Basophils # (Auto) 0.0 TH/MM3 CBC Comment DIFF FINAL Differential Comment Sodium Level 138 MEQ/L Potassium Level 3.9 MEQ/L Chloride Level 105 MEQ/L Carbon Dioxide Level 25.5 MEQ/L Anion Gap 8 MEQ/L Blood Urea Nitrogen 51 MG/DL Creatinine 1.73 MG/DL Estimat Glomerular Filtration 38 ML/MIN Rate Random Glucose 105 MG/DL Calcium Level 8.2 MG/DL Total Bilirubin 1.5 MG/DL Aspartate Amino Transf 43 U/L (AST/SGOT) Alanine Aminotransferase 39 U/L (ALT/SGPT) Alkaline Phosphatase 226 U/L Total Protein 5.9 GM/DL Albumin 1.9 GM/DL Blood Bank Comment Imaging Current Medications Medications (Trade) Dose Ordered Sig/Arielle Route Start Time Stop Time Status Last Admin (NS 1000 ml Inj) 1,000 ml @ 50 mls/hr Q20H IV 05/14/17 15:25 05/16/17 14:15 (NS Flush) 2 ml UNSCH PRN IV FLUSH 05/14/17 15:30 (NS Flush) 2 ml BID IV FLUSH 05/14/17 21:00 05/16/17 08:49 (Tylenol) 650 mg Q4H PRN PO 05/14/17 15:30 (Zofran Inj) 4 mg Q6H PRN IVP 05/14/17 15:30 05/16/17 08:37 (Narcan Inj) 0.4 mg UNSCH PRN IV 05/14/17 15:30 (Jaqui-Colace) 1 tab BID PO 05/14/17 21:00 05/15/17 09:20 (Milk Of Magnesia Liq) 30 ml Q12H PRN PO 05/14/17 15:30 (Senokot) 17.2 mg Q12H PRN PO 05/14/17 15:30 (Dulcolax Supp) 10 mg DAILY PRN RECTAL 05/14/17 15:30 Lactulose 30 ml 30 ml DAILY PRN PO 05/14/17 15:30 Metronidazole 100 ml @ 100 mls/hr Q6H IV 05/14/17 19:00 05/16/17 18:34 (Levaquin 500 Mg Premix Inj) 100 ml @ 100 mls/hr Q24H IV 05/14/17 19:00 05/16/17 17:02 (Dilaudid Pf Inj) 0.5 mg Q3H PRN IV PUSH 05/14/17 20:13 05/16/17 08:18 (Protonix Inj) 40 mg Q24H IV PUSH 05/16/17 09:00 05/16/17 08:17 Miscellaneous Information ALL NURSING DEPARTME... UNSCH PRN .XX 05/16/17 13:45 05/17/17 13:44 (Miralax) 256 gm ONCE ONCE PO 05/17/17 16:00 05/17/17 16:01 UNV (Dulcolax Ec) 20 mg ONCE ONCE PO 05/17/17 20:00 05/17/17 20:01 UNV Assessment and Plan Problem List: (1) GI bleed (2) Atrial fibrillation (3) CAD (coronary artery disease) (4) Cardiomyopathy (5) HTN (hypertension) (6) HLD (hyperlipidemia) (7) Pacemaker Assessment and Plan No new cardiac issues, remains stable from cardiac standpoint. Cholecystectomy today, well tolerated. Endoscopy in the near future. I recommend to restart anticoagulation as soon as possible due to his h/o a fib and drug eluting stent placement. F/u w Dr. Hitchcock. Problem Qualifiers (1) GI bleed: Qualified Code: K92.2 - Gastrointestinal hemorrhage, unspecified gastrointestinal hemorrhage type (2) Atrial fibrillation: Qualified Code: I48.91 - Atrial fibrillation, unspecified type (3) CAD (coronary artery disease): Qualified Code: I25.10 - Coronary artery disease involving [place] coronary artery of [place] heart without angina pectoris (4) HTN (hypertension): Qualified Code: I10 - Essential hypertension (5) HLD (hyperlipidemia): Qualified Code: E78.5 - Hyperlipidemia, unspecified hyperlipidemia type Sarbjit Slade MD May 16, 2017 18:50
[2017-05-16 20:00] VITALS: BP 129/63; PULSE 59; PULSE 61; RESP 20; TEMP 97.5; O2SAT 100
[2017-05-17 00:02] VITALS: BP 122/58; PULSE 62; RESP 20; TEMP 97.4; O2SAT 98
[2017-05-17] MEDS: SODIUM CHLOR 0.9% 1000 ML INJ 1,000 ML IV SCH ×2 (00:27→18:01)
[2017-05-17 00:31] LABS: INTERNATIONAL NORMALIZED RATIO 1.3 RATIO; PROTHROMBIN TIME - PATIENT 14.5 SEC (9.8-11.6)
[2017-05-17] MEDS: metroNIDAZOLE 500 MG INJ 100 ML IV SCH ×4 (01:07→17:55)
[2017-05-17 04:00] VITALS: BP 132/63; PULSE 58; RESP 20; TEMP 97.6; O2SAT 97
[2017-05-17] MEDS: ONDANSETRON HCL 4 MG/2 ML VIAL IVP PRN (07:10)
[2017-05-17 08:18] VITALS: BP 151/72; PULSE 59; RESP 20; TEMP 97.3; O2SAT 99
[2017-05-17] MEDS: HYDROmorphone HCL PF 1 MG/ML VIAL IV PUSH PRN ×4 (08:30→21:16)
[2017-05-17] MEDS: SODIUM CHLORIDE 0.9% FLUSH 10 ML FLUSH IV FLUSH SCH ×2 (08:31→20:42)
[2017-05-17] MEDS: DOCUSATE SODIUM 50 MG/SENNA 8.6 MG TAB PO SCH ×2 (08:31→20:41)
[2017-05-17] MEDS: PANTOPRAZOLE SODIUM 40 MG VIAL IV PUSH SCH (08:31)
[2017-05-17 09:27] LABS: HEMATOCRIT 30.2 % (39.0-51.0); MEAN CELL VOLUME 88.2 FL (80.0-100.0); MEAN CORPUSCULAR HEMOGLOBIN 29.6 PG (27.0-34.0); MEAN CORPUSCULAR HGB CONC 33.5 % (32.0-36.0); PLATELET COUNT 128 TH/MM3 (150-450); RED BLOOD COUNT 3.43 MIL/MM3 (4.50-5.90); RED CELL DISTRIBUTION WIDTH 15.2 % (11.6-17.2); REVIEW FLAG FINAL; WHITE BLOOD COUNT 7.6 TH/MM3 (4.0-11.0)
[2017-05-17 09:59] LABS: POTASSIUM 4.5 MEQ/L (3.5-5.1)
--- NOTE | 2017-05-17 12:16 | HHI.PR ---
Subjective Subjective Notes feels much better. pain controlled with meds, had some po. no bm or flatus Objective Vitals/I&O Vital Signs Date Time Temp Pulse Resp B/P Pulse Ox O2 Delivery O2 Flow Rate FiO2 05/17/17 08:18 97.3 59 20 151/72 99 05/17/17 04:00 Nasal Cannula 3.00 Labs Laboratory Tests Test 05/17/17 05/17/17 00:08 07:25 Prothrombin Time 14.5 Prothromb Time International 1.3 Ratio White Blood Count 7.6 Red Blood Count 3.43 Hemoglobin 10.1 Hematocrit 30.2 Mean Corpuscular Volume 88.2 Mean Corpuscular Hemoglobin 29.6 Mean Corpuscular Hemoglobin 33.5 Concent Red Cell Distribution Width 15.2 Platelet Count 128 Mean Platelet Volume 8.5 Sodium Level 141 Potassium Level 4.5 Chloride Level 107 Carbon Dioxide Level 23.0 Anion Gap 11 Blood Urea Nitrogen 49 Creatinine 1.54 Estimat Glomerular Filtration 43 Rate Random Glucose 128 Calcium Level 8.5 Abdomen: Non-distended, Post-op tenderness Narrative Exam AMANDA with serosanginous output, no blood, no bile Wound Wound : Wound Location: Abdomen Appearance: Clean & Dry A/P Assessment and Plan A - POD 1 lap ramos - acute gangrenous cholecystitis P - ok to resume anticoagulation today, will leave AMANDA in 5-7 days. will FU in office [phone]. please call with any issues and we will gladly see prn. ok to DC to rehab from our point. Eddie Modi MD May 17, 2017 12:16
[2017-05-17 12:20] VITALS: BP 138/65; PULSE 63; RESP 20; TEMP 97.4; O2SAT 99
--- NOTE | 2017-05-17 13:52 | HHI.PR ---
Subjective Remarks Alert oriented responsive Resting in bed Occasional nausea but no emesis Afebrile (Kyara Mercedes) Objective Objective Results - Vital Signs Date Time Temp Pulse Resp B/P Pulse Ox O2 Delivery O2 Flow Rate FiO2 05/17/17 12:20 97.4 63 20 138/65 99 05/17/17 08:18 97.3 59 20 151/72 99 05/17/17 04:00 Nasal Cannula 3.00 05/17/17 04:00 97.6 58 20 132/63 97 05/17/17 00:02 97.4 62 20 122/58 98 05/17/17 00:00 Nasal Cannula 3.00 05/16/17 20:00 97.5 61 20 129/63 100 05/16/17 20:00 Nasal Cannula 3.00 05/16/17 20:00 59 05/16/17 16:00 97.9 60 20 130/58 94 05/16/17 14:13 97.9 62 16 138/62 100 Nasal Cannula 3 05/16/17 14:00 60 16 137/63 100 Nasal Cannula 3 I/O 05/16/17 05/16/17 05/16/17 05/17/17 05/17/17 05/17/17 07:00 15:00 23:00 07:00 15:00 23:00 Intake Total 400 ml 700 ml 539 ml 240 ml Output Total 800 ml 1420 ml 200 ml 350 ml Balance -400 ml -720 ml 339 ml -110 ml Intake Oral 0 ml 0 ml 360 ml 240 ml IV Total 400 ml 200 ml 179 ml Other 500 ml Output Urine Total 800 ml 1100 ml 200 ml 350 ml Drainage Total 295 ml Estimated Blood Loss 25 ml # Voids 3 # Bowel Movements 0 2 0 0 (Kyara Mercedes) Result Diagram: 05/17/1725 05/17/17 0725 ROS General: Fatigue (mild improved today), Weakness, Other (10 point ROS done positives noted) Pulmonary: Cough (occasional and encouraged), SOB ( At rest) GI: Abdominal Pain (improved as of 8:30 this morning, : Draining clear pink fluid, abdominal), BM (none 2 days) (Kyara Mercedes) Physical Exam Physical Exam PHYSICAL EXAMINATION GENERAL: This is a well-developed, well-nourished elderly male who appears to be in no acute distress. He is alert and awake, answers questions appropriately HEAD: Normocephalic without any lesion or mass noted. Facial features appear symmetric. OROPHARYNGEAL: Oropharynx clear NECK: Supple. Trachea midline without deviation. CARDIAC: Regular rhythm, regular rate, S1 and S2 are heard. LUNGS: Clear to auscultation bilaterally. ABDOMEN: Obese, round taut nontender, drainage tube right upper quadrant draining pink clear fluid Bowel sounds are Soft diet advanced EXTREMITIES: no LE edema. Pulses intact, right knee larger than the left. NEUROLOGICAL: Patient mood and affect appropriate. SKIN:Warm and moist (Kyara Mercedes) A/P Assessment and Plan (1) Acute cholecystitis (2) GI bleed (3) Atrial fibrillation (4) History of colon cancer (5) CAD (coronary artery disease) (6) Leukocytosis (7) Osteoarthritis (8) Neuropathy (9) GERD (gastroesophageal reflux disease) (10) HTN (hypertension) (11) HLD (hyperlipidemia) (12) BPH (benign prostatic hyperplasia) (13) [id number] kidney injury Assessment and Plan Vital signs reviewed afebrile pulse borderline at 59, Labs reviewed, acute kidney injury trends down, INR 1.3 Blood sugar 128, leukocytosis trended down in normal at 7.6 Abdominal pain, surgical consult appreciated, patient had cholecystectomy, currently has abdominal drain draining pink clear fluid Leukocytosis, resolved -Continue with IV fluids Dilaudid as needed for pain management Post op orders per Dr. whitman Rectal bleeding, patient on Coumadin and was also on Plavix. Etiology unclear. Has history of colon cancer. -Gastroenterology consult appreciated. Pending EGD planned for a.m., off Coumadin since admission, INR subtherapeutic Right knee pain, recent right knee effusion and steroid injection. Currently receiving rehabilitation for severe osteoarthritis right before admission -PT following -OOB daily and encouraged Acute on chronic kidney injury, stable, Continue with IV fluids and monitor patient's by mouth intake. Plan for at least 24 more hours until EGD is complete A. fib, has pacemaker pacemaker, monitored on telemetry, heart rate 59, asymptomatic for any pain or shortness of breath Cardiology has been consulted, case has been discussed with Dr. Slade. He recommends to try to do all procedures during this hospitalization and start patient back on Plavix and Coumadin when stable. SCDs for DVT prophylaxis PUD prophylaxis D/W RN D/W Dr. Chakraborty D/W pt (Kyara Mercedes) Assessment and Plan Patient seen and examined as above [id number] time spent with patient Labs reviewed Plan of care discussed with JEWELER APPRENTICE discussed with RN Discussed with patient and at bedside in detail. His cast about anticoagulation and why it is on hold. Awaiting for colonoscopy. Once patient can tolerate bowel prep then colonoscopy can be arranged. Hopefully within day or 2. In the meantime will watch for any bleeding per rectum. And hold anticoagulation as patient came also with rectal bleeding. Explained to them risk of patient off of Coumadin. They understood very well. (Camron Chakraborty MD) Kyara Mercedes May 17, 2017 13:52 Camron Chakraborty MD May 17, 2017 16:40
--- NOTE | 2017-05-17 14:50 | HHI.GIFU ---
Subjective Remarks Pt resting in bed, at bedside. He says he is not tolerating much, is nauseous with small sips of water and the nausea medication not helping. Objective Vitals I&O Vital Signs Date Time Temp Pulse Resp B/P Pulse Ox O2 Delivery O2 Flow Rate FiO2 05/17/17 12:20 97.4 63 20 138/65 99 05/17/17 08:18 97.3 59 20 151/72 99 05/17/17 04:00 Nasal Cannula 3.00 05/17/17 04:00 97.6 58 20 132/63 97 05/17/17 00:02 97.4 62 20 122/58 98 05/17/17 00:00 Nasal Cannula 3.00 05/16/17 20:00 97.5 61 20 129/63 100 05/16/17 20:00 Nasal Cannula 3.00 05/16/17 20:00 59 05/16/17 16:00 97.9 60 20 130/58 94 I/O 05/16/17 05/16/17 05/16/17 05/17/17 05/17/17 05/17/17 07:00 15:00 23:00 07:00 15:00 23:00 Intake Total 400 ml 700 ml 539 ml 240 ml 741 ml Output Total 800 ml 1420 ml 200 ml 350 ml 700 ml Balance -400 ml -720 ml 339 ml -110 ml 41 ml Intake Oral 0 ml 0 ml 360 ml 240 ml IV Total 400 ml 200 ml 179 ml 741 ml Other 500 ml Output Urine Total 800 ml 1100 ml 200 ml 350 ml 700 ml Drainage Total 295 ml Estimated Blood Loss 25 ml # Voids 3 # Bowel Movements 0 2 0 0 Laboratory Laboratory Tests Test 05/17/17 05/17/17 00:08 07:25 Prothrombin Time 14.5 Prothromb Time International 1.3 Ratio White Blood Count 7.6 Red Blood Count 3.43 Hemoglobin 10.1 Hematocrit 30.2 Mean Corpuscular Volume 88.2 Mean Corpuscular Hemoglobin 29.6 Mean Corpuscular Hemoglobin 33.5 Concent Red Cell Distribution Width 15.2 Platelet Count 128 Mean Platelet Volume 8.5 Sodium Level 141 Potassium Level 4.5 Chloride Level 107 Carbon Dioxide Level 23.0 Anion Gap 11 Blood Urea Nitrogen 49 Creatinine 1.54 Estimat Glomerular Filtration 43 Rate Random Glucose 128 Calcium Level 8.5 Physical Exam HEENT: Normocephalic; atraumatic; no jaundice CHEST: CTA, Diminished CARDIAC: Irregular ABDOMEN: Soft, nondistended, mild diffuse TTP, drain RUQ with serosanguineous drainage; no hepatosplenomegaly; bowel sounds are present in all four quadrants. EXTREMITIES: No clubbing, cyanosis, or edema. SKIN: Normal; no rash; no jaundice. SEAT TRIMMER: Alert and oriented Assessment and Plan Plan ASSESSMENT: - Acute cholecystitis. Pt c/o decreased appetite and weight loss x 6 months and nausea x 1.5 weeks. He then developed significant RUQ pain last night. CT scan abdomen and pelvis (05/14/17)-----> Distended gallbladder containing air. Unless there is an explanation for gallbladder air based upon recent therapeutic intervention of some type, the appearance is concerning for cholecystitis with gas producing organisms. Correlation recommended. s/p lap ramos --> gallbladder. Flagyl, Levaquin. - Leukocytosis. Flagyl, Levaquin. - Elevated LFTs, trending down. He had abn. imaging regarding the gb, this could be related to that. He also has long hx of alcohol use, 7 per week. He denies any known hx of cirrhosis , although cirrhosis and portal hypertension and splenomegaly was suspected on March [address] scan. Will monitor. - Rectal bleeding. Pt does have a hx of partial colectomy for cancerous colon polyp in October. Pt states stage 1, did not require any further tx. He is on anticoagulation for afib. He has had an ongoing issue with constipation/impactions since his recent hospitalization and is currently taking miralax and senokot at the rehab center. He was straining to move his bowels yesterday and passed flatus, afterwards, he had a small amount of brbpr on the tissue, none in the toilet. He also had another episode yesterday morning, but has not had any further episodes. Per cardiology, will need to go back on Plavix as soon as possible and therefore we will plan for colonoscopy after cholecystectomy to evaluate his rectal bleeding before he restarts Plavix. D/W patient and . Postponed to SaturdayMay 18 as pt not yet tolerating clears and would not tolerate bowel prep. No further bleeding. - Constipation, senokot, pericolace, lactulose prn, mom prn. - Abn. Wt. Loss, Decreased appetite. 30 lb weight loss over past 6 months- pt attributes to being in and out of the hospital and states he does not like the food. - Atrial fibrillation, coronary artery disease, htn. Pt has been on coumadin for his atrial fibrillation. S/P Cath with stenting in [place] prior to his colectomy. Sees Dr. Hitchcock here. Was seen by Dr. Slade, needs to go back on Plavix as soon as possible after surgery - LORIE 1.72. - Osteoarthritis, neuropathy per attending. - Hx colon cancer. He reports that he underwent a colonoscopy in August 2016 and was found to have a cancerous polyp. He initially couldn't remember who did this, but then stated it was Dr. Mosquera. I offered to call his service, but he states that he only saw him the one time for the colonoscopy and requested that we go ahead and see him since we were already there. He had a laparoscopic partial colectomy at [facility] in [place] (he had to have cardiac cath with stenting at [facility] prior to having his surgery). He was told that this was Stage 1 and he did not need further treatment. PLAN: - reevaluate tomorrow and plan colonoscopy saturday or saturday - clears tomorrow - NPO after midnight Saturday night - miralax prep - Protonix 40mg IV daily - Monitor HH - Transfuse as necessary - Supportive care - Pt seen and examined by Dr. Bradford and myself and this note is written on his behalf Priscila Raza May 17, 2017 14:50
[2017-05-17] MEDS ORDERED: POLYETHYLENE GLYCOL 17 GM PKG PO ONE (16:00)
[2017-05-17] MEDS ORDERED: PEG (High)/E-LYTE SOLN 4000 ML BTL PO ONE (16:00)
[2017-05-17 16:01] VITALS: BP 132/63; PULSE 62; RESP 19; TEMP 97.5; O2SAT 99
[2017-05-17] MEDS: LEVOFLOXACIN 500 MG PREMIX INJ 100 ML IV SCH (17:54)
[2017-05-17 20:00] VITALS: BP 133/65; PULSE 59; RESP 18; TEMP 97.7; O2SAT 94
[2017-05-17] MEDS ORDERED: BISACODYL EC 5 MG TABEC PO ONE (20:00)
[2017-05-18] VITALS: BP 134/66; PULSE 63; RESP 20; TEMP 97.8; O2SAT 97
[2017-05-18] MEDS: metroNIDAZOLE 500 MG INJ 100 ML IV SCH ×4 (01:15→20:40)
[2017-05-18 04:00] VITALS: BP 141/76; PULSE 63; RESP 20; TEMP 97.6; O2SAT 96
[2017-05-18] MEDS: ONDANSETRON HCL 4 MG/2 ML VIAL IVP PRN (05:55)
[2017-05-18 06:03] LABS: HEMATOCRIT 31.4 % (39.0-51.0); MEAN CELL VOLUME 88.2 FL (80.0-100.0); MEAN CORPUSCULAR HEMOGLOBIN 28.5 PG (27.0-34.0); MEAN CORPUSCULAR HGB CONC 32.3 % (32.0-36.0); PLATELET COUNT 143 TH/MM3 (150-450); RED BLOOD COUNT 3.56 MIL/MM3 (4.50-5.90); RED CELL DISTRIBUTION WIDTH 15.7 % (11.6-17.2); REVIEW FLAG FINAL; WHITE BLOOD COUNT 10.1 TH/MM3 (4.0-11.0)
[2017-05-18] MEDS: HYDROmorphone HCL PF 1 MG/ML VIAL IV PUSH PRN ×2 (06:04→12:43)
[2017-05-18 06:26] LABS: BICARBONATE 21.8 MEQ/L (21.0-32.0); POTASSIUM 3.8 MEQ/L (3.5-5.1)
[2017-05-18 08:00] VITALS: BP 164/77; PULSE 62; RESP 18; TEMP 97.6; O2SAT 97
[2017-05-18] MEDS: DOCUSATE SODIUM 50 MG/SENNA 8.6 MG TAB PO SCH ×2 (09:00→20:42)
[2017-05-18] MEDS: SODIUM CHLORIDE 0.9% FLUSH 10 ML FLUSH IV FLUSH SCH ×2 (09:00→20:42)
--- NOTE | 2017-05-18 10:09 | HHI.PR ---
Subjective Subjective Notes reports nausea, no emesis. passing flatus, no BM Objective Vitals/I&O Vital Signs Date Time Temp Pulse Resp B/P Pulse Ox O2 Delivery O2 Flow Rate FiO2 05/18/17 04:00 97.6 63 20 141/76 96 05/18/17 00:00 Room Air 05/17/17 16:10 2.00 Labs Laboratory Tests Test 05/18/17 04:50 White Blood Count 10.1 Red Blood Count 3.56 Hemoglobin 10.2 Hematocrit 31.4 Mean Corpuscular Volume 88.2 Mean Corpuscular Hemoglobin 28.5 Mean Corpuscular Hemoglobin 32.3 Concent Red Cell Distribution Width 15.7 Platelet Count 143 Mean Platelet Volume 8.3 Sodium Level 140 Potassium Level 3.8 Chloride Level 108 Carbon Dioxide Level 21.8 Anion Gap 10 Blood Urea Nitrogen 45 Creatinine 1.32 Estimat Glomerular Filtration 52 Rate Random Glucose 120 Calcium Level 8.3 Cardiovascular: Regular Lungs: Clear Abdomen: Non-distended, Post-op tenderness, BS normal Extremities: Other Narrative Exam AMANDA with serosanginous output, no blood, no bile LUE swollen A/P Assessment and Plan A - POD 2 lap ramos - acute gangrenous cholecystitis P - ok to resume anticoagulation today, will leave AMANDA in 5-7 days. will FU in office [phone]. please call with any issues and we will gladly see prn. ok to DC to rehab from our point. will check US of LEFT upper arm to R/O DVT. possible IV infiltration nausea likely related to ileus. Eddie Modi MD May 18, 2017 10:09
[2017-05-18] MEDS: PANTOPRAZOLE SODIUM 40 MG VIAL IV PUSH SCH (10:58)
[2017-05-18 12:00] VITALS: BP 160/92; PULSE 64; RESP 18; TEMP 97.8; O2SAT 97
--- NOTE | 2017-05-18 12:18 | HHI.GIFU ---
Subjective Remarks Pt with noted swelling of the LUE today US is pending to evaluate for possible DVT. Pt still quite nauseated whenever he tries to drink ir eat anything. Pt just tolerating some sips of water today Denies any abd pain. No BM +Flatus (Sammi Kay E NARA) Objective Vitals I&O Vital Signs Date Time Temp Pulse Resp B/P Pulse Ox O2 Delivery O2 Flow Rate FiO2 05/18/17 08:00 97.6 62 18 164/77 97 05/18/17 04:00 97.6 63 20 141/76 96 05/18/17 00:00 97.8 63 20 134/66 97 05/18/17 00:00 Room Air 05/17/17 20:00 Room Air 05/17/17 20:00 97.7 59 18 133/65 94 05/17/17 18:32 18 05/17/17 16:10 2.00 05/17/17 16:01 97.5 62 19 132/63 99 05/17/17 12:20 97.4 63 20 138/65 99 I/O 05/17/17 05/17/17 05/17/17 05/18/17 05/18/17 05/18/17 07:00 15:00 23:00 07:00 15:00 23:00 Intake Total 240 ml 1341 ml 667 ml 442 ml Output Total 350 ml 700 ml Balance -110 ml 641 ml 667 ml 442 ml Intake Oral 240 ml 600 ml 240 ml 0 ml IV Total 741 ml 427 ml 442 ml Output Urine Total 350 ml 700 ml # Voids 0 0 # Bowel Movements 0 0 0 Laboratory Laboratory Tests Test 05/18/17 04:50 White Blood Count 10.1 Red Blood Count 3.56 Hemoglobin 10.2 Hematocrit 31.4 Mean Corpuscular Volume 88.2 Mean Corpuscular Hemoglobin 28.5 Mean Corpuscular Hemoglobin 32.3 Concent Red Cell Distribution Width 15.7 Platelet Count 143 Mean Platelet Volume 8.3 Sodium Level 140 Potassium Level 3.8 Chloride Level 108 Carbon Dioxide Level 21.8 Anion Gap 10 Blood Urea Nitrogen 45 Creatinine 1.32 Estimat Glomerular Filtration 52 Rate Random Glucose 120 Calcium Level 8.3 Imaging Last Impressions Abdomen/Pelvis CT 05/14/17 1144 Signed Impressions: Service Date/Time: Sunday, May 14, 2017 13:20 - CONCLUSION: Distended gallbladder containing air. Unless there is an explanation for gallbladder air based upon recent therapeutic intervention of some type, the appearance is concerning for cholecystitis with gas producing organisms. Correlation recommended. Sudarshan Mejias MD Chest X-Ray 05/14/17 1140 Signed Impressions: Service Date/Time: Sunday, May 14, 2017 11:45 - CONCLUSION: 1. No acute cardiopulmonary disease. Frederick Rios MD Physical Exam HEENT: Normocephalic; atraumatic; no jaundice CHEST: CTA, Diminished CARDIAC: Irregular ABDOMEN: +BS, soft, nondistended, drain RUQ with serosanguineous drainage. EXTREMITIES: No clubbing, cyanosis, or edema. SKIN: Normal; no rash; no jaundice. EXHIBITS MANAGER: Alert and oriented (Sammi Kay) Assessment and Plan Plan ASSESSMENT: - Acute cholecystitis. Pt c/o decreased appetite and weight loss x 6 months and nausea x 1.5 weeks. He then developed significant RUQ pain last night. CT scan abdomen and pelvis (05/14/17)-----> Distended gallbladder containing air. Unless there is an explanation for gallbladder air based upon recent therapeutic intervention of some type, the appearance is concerning for cholecystitis with gas producing organisms. Correlation recommended. s/p Lap ramos (05/16) ---> acute gangrenous cholecystitis. Flagyl, Levaquin. - Leukocytosis. Flagyl, Levaquin. - Elevated LFTs, trending down. He had abn. imaging regarding the gb, this could be related to that. He also has long hx of alcohol use, 7 per week. He denies any known hx of cirrhosis, although cirrhosis and portal hypertension and splenomegaly was suspected on March [address] scan. Will monitor. - Rectal bleeding. Pt does have a hx of partial colectomy for cancerous colon polyp in October. Pt states stage 1, did not require any further tx. He is on anticoagulation for A. fib. He has had an ongoing issue with constipation/impactions since his recent hospitalization and was taking Miralax and senokot at the rehab center. He was straining to move his bowels prior to admission and passed flatus, afterwards, he had a small amount of brbpr on the tissue, none in the toilet. He also had another episode yesterday morning, but has not had any further episodes. Per cardiology, will need to go back on Plavix as soon as possible and therefore we will plan for colonoscopy after cholecystectomy to evaluate his rectal bleeding before he restarts Plavix. D/W patient and . Postponed as pt not yet tolerating clears and would not tolerate bowel prep. No further bleeding. H/H is stable. - Constipation, Senokot, Jaqui-Colace, lactulose prn, mom prn. - Abn. Wt. Loss, Decreased appetite. 30 lb weight loss over past 6 months- pt attributes to being in and out of the hospital and states he does not like the food. - Atrial fibrillation, coronary artery disease, htn. Pt has been on Coumadin for his atrial fibrillation. S/P Cath with stenting in [place] prior to his colectomy. Sees Dr. Hitchcock here. Was seen by Dr. Slade, needs to go back on Plavix as soon as possible after surgery - LUE swelling, possible DVT. UE US is pending. - LORIE 1.72. - Osteoarthritis, neuropathy per attending. - Hx colon cancer. He reports that he underwent a colonoscopy in August 2016 and was found to have a cancerous polyp. He initially couldn't remember who did this, but then stated it was Dr. Mosquera. I offered to call his service, but he states that he only saw him the one time for the colonoscopy and requested that we go ahead and see him since we were already there. He had a laparoscopic partial colectomy at [facility] in [place] (he had to have cardiac cath with stenting at [facility] prior to having his surgery). He was told that this was Stage 1 and he did not need further treatment. PLAN: - Await results of UE US to assess for possible DVT - Pt still not tolerating much more than sips of water due to nausea. No abd pain currently. - Cont. clear liquids - Pt does not feel he will tolerate any GI prep currently - Protonix 40mg IV daily - Monitor HH - Transfuse as necessary - Supportive care - Pt was seen and examined by myself and Dr. Gamino and this note was written on his behalf (Sammi Kay) Physician Comments Patient seen and examined Agree with above Continue with current supportive care Monitor labs (Angel Gamino MD) Sammi Kay May 18, 2017 12:18 Angel Gamino MD May 18, 2017 19:10
--- NOTE | 2017-05-18 13:44 | HHI.PR ---
Subjective Remarks awake Resting in bed, has not been up yet. nausea continues, no emesis, even with sips of water. in rm. Afebrile Edema increased over last 24 hours left arm and left hand, elevated (Kyara Mercedes) Objective Objective Results - Vital Signs Date Time Temp Pulse Resp B/P Pulse Ox O2 Delivery O2 Flow Rate FiO2 05/18/17 08:00 97.6 62 18 164/77 97 05/18/17 04:00 97.6 63 20 141/76 96 05/18/17 00:00 97.8 63 20 134/66 97 05/18/17 00:00 Room Air 05/17/17 20:00 Room Air 05/17/17 20:00 97.7 59 18 133/65 94 05/17/17 18:32 18 05/17/17 16:10 2.00 05/17/17 16:01 97.5 62 19 132/63 99 I/O 05/17/17 05/17/17 05/17/17 05/18/17 05/18/17 05/18/17 07:00 15:00 23:00 07:00 15:00 23:00 Intake Total 240 ml 1341 ml 667 ml 442 ml Output Total 350 ml 700 ml Balance -110 ml 641 ml 667 ml 442 ml Intake Oral 240 ml 600 ml 240 ml 0 ml IV Total 741 ml 427 ml 442 ml Output Urine Total 350 ml 700 ml # Voids 0 0 # Bowel Movements 0 0 0 (Kyara Mercedes) Result Diagram: 05/18/17 0450 05/18/17 0450 ROS General: Fatigue, Weakness, Other (10 point ROS done positives noted) HEENT: Other (decreased appetite) Pulmonary: Cough (minimal) GI: Abdominal Pain (generalized), N/V (nausea no emesis) Neuro/MS: Other (debility, severe osteoarthritis knee pain) (Kyara Mercedes) Physical Exam Physical Exam PHYSICAL EXAMINATION GENERAL: This is a obese male who appears to be in mild distress. He is alert and awake, HEAD: Normocephalic Facial features appear symmetric. OROPHARYNGEAL: Oropharynx clear NECK: Supple. Trachea midline without deviation. CARDIAC: Regular rhythm, regular rate, S1 and S2 are heard. Distant LUNGS: Mildly diminished to auscultation bilaterally no wheezing no rhonchi ABDOMEN: Obese, round, minimal tenderness at surgical site and drain site, Bowel sounds are Soft No rebound. No guarding. Positive for nausea, no emesis EXTREMITIES: Trace edema lower extremities. Left arm edema and left hand edema , worse in the past 24 hours NEUROLOGICAL: Patient mood and affect flat, motivation encouraged SKIN:Warm , dry (Kyara Mercedes) A/P Assessment and Plan (1) Acute cholecystitis (2) GI bleed (3) Atrial fibrillation (4) History of colon cancer (5) CAD (coronary artery disease) (6) Leukocytosis (7) Osteoarthritis (8) Neuropathy (9) GERD (gastroesophageal reflux disease) (10) HTN (hypertension) (11) HLD (hyperlipidemia) (12) BPH (benign prostatic hyperplasia) (13) Ckxoo-ji-hjbkhph kidney injury 14 Possible DVT left arm Assessment and Plan Vital signs reviewed , normal trends Labs reviewed, acute kidney injury trends down slowly, no Coumadin yet, INR subtherapeutic Acute onset of edema left arm and left hand continues to swell over the past 24 hours, elevated, ultrasound to rule out DVT pending Abdominal pain, surgical consult appreciated, patient had cholecystectomy, currently has abdominal drain draining pink clear fluid Leukocytosis, resolved -Continue with IV fluids, nausea continues, but no emesis Dilaudid as needed for pain management Post op orders per Dr. whitman Rectal bleeding, patient on Coumadin and was also on Plavix. Etiology unclear. Has history of colon cancer. -Gastroenterology consult appreciated. Pending EGD planned, but patient does not feel like he could tolerate secondary to nausea Right knee pain, recent right knee effusion and steroid injection. Currently receiving rehabilitation for severe osteoarthritis right before admission -OOB daily and encouraged, but patient has not been out of the bed yet. Physical therapy ordered today, patient needs to be out of bed and lots of encouragement to increase his activity Acute on chronic kidney injury, stable, continues to trend down Continue with IV fluids, patient's by mouth intake is still decreased secondary to the nausea A. fib, has pacemaker pacemaker, monitored on telemetry, heart rate stable asymptomatic for any pain or shortness of breath Cardiology has been consulted, case has been discussed with Dr. Slade. He recommends to try to do all procedures during this hospitalization and start patient back on Plavix and Coumadin when stable. SCDs for DVT prophylaxis PUD prophylaxis D/W RN D/W Dr. Chakraborty D/W pt (Kyara Mercedes) Assessment and Plan Patient seen and examined as above [id number] time spent with patient Labs reviewed Plan of care discussed with SPIN TANK TENDER Discussed with patient and at bedside. Again explained about situation in which we are unable to use anticoagulant. discussed with RN Condition guarded prognosis guarded (Camron Chakraborty MD) Kyara Mercedes May 18, 2017 13:44 Camron Chakraborty MD May 18, 2017 15:27
[2017-05-18 16:00] VITALS: BP 144/68; PULSE 66; RESP 18; TEMP 97.7; O2SAT 98
--- NOTE | 2017-05-18 16:07 | RADRPT ---
EXAM DATE/TIME: 05/18/2017 14:46 [facility] COMPARISON: No previous studies available for comparison. INDICATIONS : Left arm swelling. MEDICAL HISTORY : Myocardial infarction. Congestive heart failure. Hypercholesterolemia. Numbness. Anticoagulant therap y, Coumadin. Transient ischemic attack. Peripheral vascular disease. Afib. Hypertension. Renal failur e. Arthritis. Colon cancer. DVT. Blood transfusion. SURGICAL HISTORY : Tonsillectomy. Coronary artery stent. CABG Bilateral cataract removal. Pacemaker. Colon resection. ENCOUNTER: Initial ACUITY: 2 day PAIN SCORE: 1/10 LOCATION: Left arm. FINDINGS: There is thrombus in the left subclavian, axillary, brachial, and basilic veins. The internal jugular vein is clear. CONCLUSION: Venous thrombus in the left upper extremity. Denis Nolasco MD on May 18, 2017 at 16:01 Board Certified Radiologist. This report was verified electronically.
[2017-05-18] MEDS: SODIUM CHLOR 0.9% 1000 ML INJ 1,000 ML IV SCH ×2 (16:27→20:43)
--- NOTE | 2017-05-18 17:26 | MP ---
cc: SOURAV CHAMPION M.D. DATE OF SURGERY: 05/16/2017 PREOPERATIVE DIAGNOSIS: Acute cholecystitis. POSTOPERATIVE DIAGNOSIS: 1. Acute cholecystitis. 2. Gangrenous cholecystitis. OPERATIVE PROCEDURE PERFORMED: Laparoscopic cholecystectomy. SURGEON: Sourav Champion MD. GARMENT FITTER: JERARDO Maddox. ANESTHESIA: General endotracheal anesthesia. COMPLICATIONS: None. ESTIMATED BLOOD LOSS: Minimal. INDICATIONS FOR THE PROCEDURE: Mr. Chamorro is a very pleasant 87-year-old gentleman who presented to the hospital with epigastric abdominal pain. He underwent CT scan of the abdomen and pelvis which showed a dilated thickened gallbladder with gas within the gallbladder itself concerning for abscess. Unfortunately the patient was on strong anticoagulation for his history of cardiac disease with drug-eluting stents and previous CABG. He was initially given 2 units of FFP on his day of admission and the following day his INR only corrected from 2.0 to 1.9. He was then given two more additional units of FFP and the following day his INR was only 1.8. After consultation with hematology, we elected to go ahead and give the patient Kcentra so we could perform the surgery as he is starting to mildly septic with hypotension. The risks and benefits of open and laparoscopic cholecystectomy were discussed with him and his and they were agreeable. DESCRIPTION OF THE PROCEDURE IN DETAIL: The patient was identified and brought to the operating room and placed supine on the operating room table. After adequate general anesthesia was achieved, the abdomen was prepped and draped in the standard surgical fashion. The supraumbilical space was anesthetized with 0.25% Marcaine. A supraumbilical incision was made and dissection was carried down to the subcutaneous tissue and midline fascia. The midline fascia was then incised sharply. The peritoneum was then grasped and elevated and divided sharply. A finger was then placed in peritoneal cavity without difficulty. Blunt balloon trocar was inserted and the abdomen was insufflated to 15 mmHg using CO2 gas. Next the 30 degree laparoscope was then inserted. Three 5-mm ports were then placed in the right upper quadrant after anesthetizing the skin and subcutaneous tissue with 0.25% Marcaine. Immediately we noted necrotic tissue and a foul-smelling fluid in the right upper quadrant. The omentum was encasing the gallbladder and it was carefully peeled down. Once we peeled it down, the gallbladder had a areas of obvious transmural necrosis. The gallbladder was markedly distended. The gallbladder was then aspirated with an aspirating needle and we got back about 100 mL of dark very foul smelling reddish-brown fluid. Once we decompressed the gallbladder, we were able to elevate it cephalad. The gallbladder neck was then carefully dissected. Dissection was accomplished using blunt hydrodissection and a [place] dissector. We are able to clearly identify the cystic duct going into the neck of the gallbladder. The cystic duct was fairly enlarged and the clips would only go across about 80% of it. We went ahead and clipped it twice proximally, once distally and then divided it. Once we did this, we were able to free it up and dissect it down a little more. We then placed a 2-0 PDS Endoloop on the proximal cystic duct without any problem. Once we did this, we are able to clearly identify the artery. The artery was seen going down the neck of the gallbladder. The artery appeared to be thrombosed but we went ahead and clipped it twice proximally, once distally and then divided. We also were able to clearly see the cystic node. The gallbladder then basically auto-dissect out of the hepatic fossa as it was necrotic. Minimal bleeding was encountered during the dissection out of the hepatic fossa, which was easily controlled electrocautery Bovie. The gallbladder was then placed into an Endopouch bag and brought out through the supraumbilical port. The gallbladder was inspected and again noted have full thickness necrosis in multiple areas and found to contain a foul-smelling fluid. The cystic duct stump was clearly seen in the clip was in place on it. The gallbladder was sent to pathology. Next the abdominal cavity was rinsed out with normal saline solution until the effluent was noted to be clear. Cystic duct stump was inspected and there was no evidence of leakage of bile. There was no bleeding from the liver bed. The cystic duct artery stump was also inspected and there was no evidence of bleeding. Because of the infection in the right upper quadrant and the fact the patient is on anticoagulation, we elected to go ahead and place a drain. The drain was placed in the infrahepatic space and brought out through one of the 5 mm port sites. Once we did this, the abdomen was carefully desufflated. Midline fascia was repaired with a 0 Vicryl in [id number] fashion. Skin was closed with 4-0 Vicryl. The drain was secured with a 3-0 nylon. The patient tolerated the procedure well and was awake and was brought to the recovery room in stable condition. MD MADDISON Sultana/THAO /11:49 AM /5:17 PM
[2017-05-18 20:00] VITALS: BP 151/67; PULSE 62; RESP 18; TEMP 98.1; O2SAT 96
[2017-05-18] MEDS: LEVOFLOXACIN 500 MG PREMIX INJ 100 ML IV SCH (20:42)
[2017-05-18] MEDS: ENOXAPARIN SODIUM 100 MG/ML SYRINGE SQ SCH (20:52)
[2017-05-19] VITALS (7 sets, daily range): BP systolic 106–155; BP diastolic 55–91; PULSE 60–78; RESP 18–20; TEMP 97.4–98.4; O2SAT 93–97
[2017-05-19] MEDS: metroNIDAZOLE 500 MG INJ 100 ML IV SCH ×4 (01:21→18:19)
[2017-05-19] MEDS: PANTOPRAZOLE SODIUM 40 MG VIAL IV PUSH SCH (08:29)
[2017-05-19] MEDS: ENOXAPARIN SODIUM 100 MG/ML SYRINGE SQ SCH ×2 (08:29→20:33)
[2017-05-19] MEDS: DOCUSATE SODIUM 50 MG/SENNA 8.6 MG TAB PO SCH ×2 (08:30→20:32)
[2017-05-19] MEDS: SODIUM CHLORIDE 0.9% FLUSH 10 ML FLUSH IV FLUSH SCH ×2 (08:30→20:32)
[2017-05-19 09:31] LABS: AUTOMATED NEUTROPHIL # 8.4 TH/MM3 (1.8-7.7); BASOPHIL % 0.1 % (0.0-2.0); EOSINOPHIL % 0.5 % (0.0-4.0); HEMATOCRIT 33.3 % (39.0-51.0); LYMPH % 7.2 % (9.0-44.0); LYMPHOCYTE # 0.7 TH/MM3 (1.0-4.8); MEAN CELL VOLUME 87.8 FL (80.0-100.0); MEAN CORPUSCULAR HEMOGLOBIN 29.2 PG (27.0-34.0); MEAN CORPUSCULAR HGB CONC 33.3 % (32.0-36.0); MONO % 4.4 % (0.0-8.0); NEUT % 87.8 % (16.0-70.0); PLATELET COUNT 133 TH/MM3 (150-450); RED BLOOD COUNT 3.79 MIL/MM3 (4.50-5.90); RED CELL DISTRIBUTION WIDTH 15.3 % (11.6-17.2); WHITE BLOOD COUNT 9.6 TH/MM3 (4.0-11.0)
[2017-05-19 09:39] LABS: HEMO FLAGS AUTO DIFF
[2017-05-19 10:01] LABS: ALT (GPT) 20 U/L (12-78); ANION GAP 10 MEQ/L (5-15); AST (GOT) 22 U/L (15-37); BICARBONATE 20.2 MEQ/L (21.0-32.0); BLOOD UREA NITROGEN 39 MG/DL (7-18); CHLORIDE 111 MEQ/L (98-107); GLOMERULAR FILTRATION RATE 52 ML/MIN (>89); POTASSIUM 3.7 MEQ/L (3.5-5.1); SODIUM (NA) 141 MEQ/L (136-145)
[2017-05-19 10:03] LABS: ALKALINE PHOSPHATASE 222 U/L (45-117); TOTAL BILIRUBIN ADULT 1.1 MG/DL (0.2-1.0)
[2017-05-19 10:52] LABS: BANDS 17 % (0-6); METAMYELOCYTES 1 % (0-1); NEUTROPHIL # MANUAL DIFF 9.4 TH/MM3 (1.8-7.7); OVALOCYTES 1+ (NORMAL); PLATELET ESTIMATE SMEAR LOW (NORMAL); PLATELET MORPHOLOGY NORMAL (NORMAL); POLYS (SEG NEUTROPHILS) 80 % (16-70); SCAN/DIFF FINAL DIFF MANUAL; WBC DIFF SAMPLE 100
--- NOTE | 2017-05-19 13:44 | HHI.PR ---
Subjective Remarks awake Dangle on side of bed with rehabilitation today was not able to stand yet he states nausea continues, no emesis, able to eat watermelon today no vomiting in rm. New DVT left arm, elevated (Kyara Mercedes) Objective Objective Results - Vital Signs Date Time Temp Pulse Resp B/P Pulse Ox O2 Delivery O2 Flow Rate FiO2 05/19/17 11:43 97.6 60 20 155/74 97 05/19/17 08:25 Room Air 05/19/17 08:00 97.6 60 20 146/91 96 05/19/17 04:00 Room Air 05/19/17 04:00 98.0 78 20 145/70 97 05/19/17 00:00 98.4 68 20 123/69 97 05/19/17 00:00 Room Air 2.00 05/18/17 20:00 Room Air 05/18/17 20:00 98.1 62 18 151/67 96 05/18/17 20:00 62 05/18/17 16:00 97.7 66 18 144/68 98 05/18/17 16:00 Room Air I/O 05/18/17 05/18/17 05/18/17 05/19/17 05/19/17 05/19/17 07:00 15:00 23:00 07:00 15:00 23:00 Intake Total 442 ml 280 ml 0 ml 1252 ml Output Total 1400 ml 425 ml 400 ml Balance 442 ml -1120 ml -425 ml 852 ml Intake Oral 0 ml 280 ml 0 ml 480 ml IV Total 442 ml 772 ml Output Urine Total 1400 ml 425 ml 350 ml Drainage Total 50 ml # Voids 0 # Bowel Movements 0 0 0 2 (Kyara Mercedes) Result Diagram: 05/19/17 0900 05/19/17 0900 ROS General: Fatigue, Weakness, Other (10 point ROS done positives noted) Cardiac: Edema (right upper arm, new DVT) GI: BM (diarrhea 2 dark), N/V (no emesis) (Kyara Mercedes) Physical Exam Physical Exam PHYSICAL EXAMINATION GENERAL: This is a obese male who appears to be in no acute distress. He is alert and awake, HEAD: Normocephalic Facial features appear symmetric. OROPHARYNGEAL: Oropharynx clear NECK: Supple. Trachea midline without deviation. CARDIAC: Regular rhythm, regular rate, S1 and S2 are heard. LUNGS: Mild diminished at bases to auscultation bilaterally. No active wheezes or rhonchi ABDOMEN: Obese Soft, mild tenderness at surgical site gradual improvement small incision line clean dry and intact, drain with clear red fluid, no organomegaly or masses. Bowel sounds are Soft No rebound. No guarding. EXTREMITIES: No edema. Pulses palpable NEUROLOGICAL: Patient mood and affect appropriate. SKIN:Warm and moist (Kyara Mercedes) A/P Assessment and Plan (1) Acute cholecystitis (2) GI bleed (3) Atrial fibrillation (4) History of colon cancer (5) CAD (coronary artery disease) (6) Leukocytosis (7) Osteoarthritis (8) Neuropathy (9) GERD (gastroesophageal reflux disease) (10) HTN (hypertension) (11) HLD (hyperlipidemia) (12) BPH (benign prostatic hyperplasia) (13) Xzbov-eu-knylgai kidney injury 14 Possible DVT left arm Assessment and Plan Vital signs reviewed , normal trends, BP 155/74 Anemia 11.1, stay in fairly consistent no active bleeding Labs reviewed, acute kidney injury trends down slowly, no Coumadin yet, INR subtherapeutic, started on Lovenox yesterday for his new DVT left arm Acute onset of edema left arm and left hand continues to swell over the past 24 hours, elevated, ultrasound to rule out DVT positive Continue to elevate, and and forearm area decreased was swelling today, Lovenox subcutaneous Abdominal pain, surgical consult appreciated, patient had cholecystectomy, currently has abdominal drain draining pink clear fluid Leukocytosis, resolved -Continue with IV fluids, nausea continues, but no emesis, bowel sounds are gradual, soft, able to eat watermelon for lunch pain management Post op orders per Dr. whitman, physical therapy able to dangle patient on side of bed. Patient could not stand yet Rectal bleeding, patient on Coumadin and was also on Plavix. Etiology unclear. Has history of colon cancer. -Gastroenterology consult appreciated. Pending EGD/colonoscopy probably for a.m. Right knee pain, recent right knee effusion and steroid injection. Currently receiving rehabilitation for severe osteoarthritis right before admission, hopeful to go back to rehabilitation when possible, pending GI test -OOB daily and encouraged, Physical therapy eval and treat today Acute on chronic kidney injury, stable, continues to trend down Continue with IV fluids, patient's by mouth intake is still decreased secondary to the nausea DC Landry catheter. Jefry ruby, has pacemaker pacemaker, monitored on telemetry, heart rate stable asymptomatic for any pain or shortness of breath Cardiology has been consulted, case has been discussed with Dr. Slade. He recommends to try to do all procedures during this hospitalization and start patient back on Plavix and Coumadin when stable. Currently on Lovenox SCDs for DVT prophylaxis PUD prophylaxis Discharge planning within the next few days dependent on GI testing and medical stability Will need further rehabilitation SNF D/W RN D/W Dr. Chakraborty, seen on his behalf D/W pt (Kyara Mercedes) Assessment and Plan Patient seen and examined as above with at bedside [id number] time spent with patient Labs reviewed patient has bandemia will monitor, continue antibiotic Medications reviewed Discussed with GI likely endoscopy tomorrow Discussed with RN Discussed with patient at bedside Discussed with HAND SCRAPER about plan of care (Camron Chakraborty MD) Kyara Mercedes May 19, 2017 13:44 Camron Chakraborty MD May 19, 2017 15:59
[2017-05-19] MEDS: HYDROmorphone HCL PF 1 MG/ML VIAL IV PUSH PRN ×3 (15:12→23:36)
--- NOTE | 2017-05-19 16:04 | HHI.GIFU ---
Subjective Remarks Pt feeling better overall, still some nausea but no vomiting. He had 2 x episodes explosive diarrhea last night. (Priscila Raza) Objective Vitals I&O Vital Signs Date Time Temp Pulse Resp B/P Pulse Ox O2 Delivery O2 Flow Rate FiO2 05/19/17 11:43 97.6 60 20 155/74 97 05/19/17 08:25 Room Air 05/19/17 08:00 97.6 60 20 146/91 96 05/19/17 07:44 62 05/19/17 04:00 Room Air 05/19/17 04:00 98.0 78 20 145/70 97 05/19/17 00:00 98.4 68 20 123/69 97 05/19/17 00:00 Room Air 2.00 05/18/17 20:00 Room Air 05/18/17 20:00 98.1 62 18 151/67 96 05/18/17 20:00 62 05/18/17 16:00 97.7 66 18 144/68 98 05/18/17 16:00 Room Air I/O 05/18/17 05/18/17 05/18/17 05/19/17 05/19/17 05/19/17 07:00 15:00 23:00 07:00 15:00 23:00 Intake Total 442 ml 280 ml 0 ml 1252 ml 834 ml Output Total 1400 ml 425 ml 400 ml 450 ml Balance 442 ml -1120 ml -425 ml 852 ml 384 ml Intake Oral 0 ml 280 ml 0 ml 480 ml 480 ml IV Total 442 ml 772 ml 354 ml Output Urine Total 1400 ml 425 ml 350 ml 400 ml Drainage Total 50 ml 50 ml # Voids 0 # Bowel Movements 0 0 0 2 2 Laboratory Laboratory Tests Test 05/19/17 09:00 White Blood Count 9.6 Red Blood Count 3.79 Hemoglobin 11.1 Hematocrit 33.3 Mean Corpuscular Volume 87.8 Mean Corpuscular Hemoglobin 29.2 Mean Corpuscular Hemoglobin 33.3 Concent Red Cell Distribution Width 15.3 Platelet Count 133 Mean Platelet Volume 8.1 Neutrophils (%) (Auto) 87.8 Lymphocytes (%) (Auto) 7.2 Monocytes (%) (Auto) 4.4 Eosinophils (%) (Auto) 0.5 Basophils (%) (Auto) 0.1 Neutrophils # (Auto) 8.4 Lymphocytes # (Auto) 0.7 Monocytes # (Auto) 0.4 Eosinophils # (Auto) 0.0 Basophils # (Auto) 0.0 CBC Comment AUTO DIFF Differential Total Cells 100 Counted Neutrophils % (Manual) 80 Band Neutrophils % 17 Lymphocytes % 1 Monocytes % 1 Neutrophils # (Manual) 9.4 Metamyelocytes 1 Differential Comment FINAL DIFF MANUAL Platelet Estimate LOW Platelet Morphology Comment NORMAL Ovalocytes 1+ Sodium Level 141 Potassium Level 3.7 Chloride Level 111 Carbon Dioxide Level 20.2 Anion Gap 10 Blood Urea Nitrogen 39 Creatinine 1.32 Estimat Glomerular Filtration 52 Rate Random Glucose 95 Calcium Level 8.0 Total Bilirubin 1.1 Aspartate Amino Transf 22 (AST/SGOT) Alanine Aminotransferase 20 (ALT/SGPT) Alkaline Phosphatase 222 Total Protein 5.8 Albumin 1.9 Imaging Last Impressions Upper Extremity Ultrasound 05/18/17 0000 Signed Impressions: Service Date/Time: Thursday, May 18, 2017 14:46 - CONCLUSION: Venous thrombus in the left upper extremity. Denis Nolasco MD Abdomen/Pelvis CT 05/14/17 1144 Signed Impressions: Service Date/Time: Sunday, May 14, 2017 13:20 - CONCLUSION: Distended gallbladder containing air. Unless there is an explanation for gallbladder air based upon recent therapeutic intervention of some type, the appearance is concerning for cholecystitis with gas producing organisms. Correlation recommended. Sudarshan Mejias MD Chest X-Ray 05/14/17 1140 Signed Impressions: Service Date/Time: Sunday, May 14, 2017 11:45 - CONCLUSION: 1. No acute cardiopulmonary disease. Frederick Rios MD Physical Exam HEENT: Normocephalic; atraumatic; no jaundice CHEST: CTA, Diminished CARDIAC: Irregular ABDOMEN: +BS, soft, nondistended EXTREMITIES: No clubbing, cyanosis, or edema. SKIN: Normal; no rash; no jaundice. ROW BOSS: Alert and oriented (Priscila Raza) Assessment and Plan Plan ASSESSMENT: - Acute cholecystitis. Pt c/o decreased appetite and weight loss x 6 months and nausea x 1.5 weeks. He then developed significant RUQ pain last night. CT scan abdomen and pelvis (05/14/17)-----> Distended gallbladder containing air. Unless there is an explanation for gallbladder air based upon recent therapeutic intervention of some type, the appearance is concerning for cholecystitis with gas producing organisms. Correlation recommended. s/p Lap ramos (05/16) ---> acute gangrenous cholecystitis. Flagyl, Levaquin. - Leukocytosis. Flagyl, Levaquin. - Elevated LFTs, trending down. He had abn. imaging regarding the gb, this could be related to that. He also has long hx of alcohol use, 7 per week. He denies any known hx of cirrhosis, although cirrhosis and portal hypertension and splenomegaly was suspected on March [address] scan. Will monitor. - Rectal bleeding. Pt does have a hx of partial colectomy for cancerous colon polyp in October. Pt states stage 1, did not require any further tx. He is on anticoagulation for A. fib. He has had an ongoing issue with constipation/impactions since his recent hospitalization and was taking Miralax and senokot at the rehab center. He was straining to move his bowels prior to admission and passed flatus, afterwards, he had a small amount of brbpr on the tissue, none in the toilet. He also had another episode yesterday morning, but has not had any further episodes. Per cardiology, will need to go back on Plavix as soon as possible and therefore we will plan for colonoscopy after cholecystectomy to evaluate his rectal bleeding before he restarts Plavix. D/W patient and . no further bleeding. will try colonoscopy tomorrow - Constipation, Senokot, Jaqui-Colace, lactulose prn, mom prn. - Abn. Wt. Loss, Decreased appetite. 30 lb weight loss over past 6 months- pt attributes to being in and out of the hospital and states he does not like the food. - Atrial fibrillation, coronary artery disease, htn. Pt has been on Coumadin for his atrial fibrillation. S/P Cath with stenting in [place] prior to his colectomy. Sees Dr. Hitchcock here. Was seen by Dr. Salde, needs to go back on Plavix as soon as possible after surgery - LUE swelling, possible DVT. 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 - Hx colon cancer. He reports that he underwent a colonoscopy in August 2016 and was found to have a cancerous polyp. He initially couldn't remember who did this, but then stated it was Dr. Mosquera. I offered to call his service, but he states that he only saw him the one time for the colonoscopy and requested that we go ahead and see him since we were already there. He had a laparoscopic partial colectomy at [facility] in [place] (he had to have cardiac cath with stenting at [facility] prior to having his surgery). He was told that this was Stage 1 and he did not need further treatment. PLAN: - colonoscopy - Cont. clear liquids - NPO after midnight - miralax prep - Protonix 40mg IV daily - Monitor HH - Transfuse as necessary - Supportive care - Pt was seen and examined by myself and Dr. Baxter and this note was written on her behalf (Priscila Raza) Physician Comments seen, examined agree with above if colon negative egd will be scheduled hold Lovenox dose in am (Waleska Baxter MD) Priscila Raza May 19, 2017 16:04 Waleska Baxter MD May 19, 2017 16:58
[2017-05-19] MEDS ORDERED: POLYETHYLENE GLYCOL POWDER 255 GM BTL PO ONE (17:00)
[2017-05-19] MEDS ORDERED: POLYETHYLENE GLYCOL 17 GM PKG PO ONE (17:00)
[2017-05-19] MEDS: LEVOFLOXACIN 500 MG PREMIX INJ 100 ML IV SCH (20:32)
[2017-05-19] MEDS: SODIUM CHLOR 0.9% 1000 ML INJ 1,000 ML IV SCH (21:42)
[2017-05-20] VITALS: BP 161/74; PULSE 62; RESP 18; TEMP 97.7; O2SAT 96
[2017-05-20] MEDS: metroNIDAZOLE 500 MG INJ 100 ML IV SCH ×4 (00:45→18:30)
[2017-05-20 04:00] VITALS: BP 151/73; PULSE 60; RESP 18; TEMP 97.5; O2SAT 98
[2017-05-20] MEDS: HYDROmorphone HCL PF 1 MG/ML VIAL IV PUSH PRN ×2 (05:09→08:10)
[2017-05-20 07:59] LABS: BASOPHIL % 0.1 % (0.0-2.0); EOSINOPHIL # 0.1 TH/MM3 (0-0.4); EOSINOPHIL % 0.6 % (0.0-4.0); HEMO FLAGS DIFF FINAL; LYMPH % 7.1 % (9.0-44.0); LYMPHOCYTE # 0.8 TH/MM3 (1.0-4.8); MEAN CELL VOLUME 89.1 FL (80.0-100.0); MEAN CORPUSCULAR HEMOGLOBIN 28.4 PG (27.0-34.0); MEAN CORPUSCULAR HGB CONC 31.8 % (32.0-36.0); MONO % 4.5 % (0.0-8.0); NEUT % 87.7 % (16.0-70.0); PLATELET COUNT 134 TH/MM3 (150-450); RED BLOOD COUNT 3.93 MIL/MM3 (4.50-5.90); RED CELL DISTRIBUTION WIDTH 15.8 % (11.6-17.2); WHITE BLOOD COUNT 11.4 TH/MM3 (4.0-11.0)
[2017-05-20 08:00] VITALS: BP 150/69; PULSE 59; RESP 18; TEMP 97.4; O2SAT 98
[2017-05-20] MEDS: PANTOPRAZOLE SODIUM 40 MG VIAL IV PUSH SCH (08:10)
[2017-05-20] MEDS: SODIUM CHLORIDE 0.9% FLUSH 10 ML FLUSH IV FLUSH SCH ×2 (08:14→20:48)
[2017-05-20] MEDS: DOCUSATE SODIUM 50 MG/SENNA 8.6 MG TAB PO SCH ×2 (08:14→20:48)
[2017-05-20 08:18] VITALS: PULSE 66
--- NOTE | 2017-05-20 09:53 | HHI.PR ---
Subjective Subjective Notes doing better, arm less swollen today, going for colonscopy. reports no bleeding. Objective Vitals/I&O Vital Signs Date Time Temp Pulse Resp B/P Pulse Ox O2 Delivery O2 Flow Rate FiO2 05/20/17 08:00 Room Air 05/20/17 04:00 97.5 60 18 151/73 98 05/19/17 00:00 2.00 Labs Laboratory Tests Test 05/20/17 06:03 White Blood Count 11.4 Red Blood Count 3.93 Hemoglobin 11.1 Hematocrit 35.0 Mean Corpuscular Volume 89.1 Mean Corpuscular Hemoglobin 28.4 Mean Corpuscular Hemoglobin 31.8 Concent Red Cell Distribution Width 15.8 Platelet Count 134 Mean Platelet Volume 8.4 Neutrophils (%) (Auto) 87.7 Lymphocytes (%) (Auto) 7.1 Monocytes (%) (Auto) 4.5 Eosinophils (%) (Auto) 0.6 Basophils (%) (Auto) 0.1 Neutrophils # (Auto) 10.0 Lymphocytes # (Auto) 0.8 Monocytes # (Auto) 0.5 Eosinophils # (Auto) 0.1 Basophils # (Auto) 0.0 CBC Comment DIFF FINAL Differential Comment Abdomen: Non-distended, Non-tender Narrative Exam AMANDA with serosanginous output, no blood, no bile LUE less swollen today Wound Wound : Wound Location: Abdomen Appearance: Clean & Dry Dressing: Dry A/P Assessment and Plan A - POD 4 lap ramos - acute gangrenous cholecystitis P - ok to resume anticoagulation today,. will FU in office [phone]. please call with any issues and we will gladly see prn. ok to DC to rehab from our point. nausea likely related to ileus. AMANDA removed, wounds clean Will FU in office, please call with any concerns Eddie Modi MD May 20, 2017 09:53
[2017-05-20] MEDS ORDERED: PROPOFOL 200 MG/20 ML AMP IV ONE (13:32)
--- NOTE | 2017-05-20 13:44 | HHI.GIFU ---
Subjective Remarks Immediate postprocedure note: EGD with biopsy and colonoscopy Indication: GI bleed Meds: MAC Findings: Esophagus: normal Stomach: mild gastritis antrum biopsy. Atrophic appearing gastritis body Biopsy taken Duodenum: tiny polyp opposite to major papilla Biopsy taken with removal Anastomosis ileo- transverse colon: small polypoid lesion removed with cold biopsy technique. Rest of colon normal rectum: internal hemorrhoids. Objective Vitals I&O Vital Signs Date Time Temp Pulse Resp B/P Pulse Ox O2 Delivery O2 Flow Rate FiO2 05/20/17 08:00 Room Air 05/20/17 08:00 97.4 59 18 150/69 98 05/20/17 04:00 97.5 60 18 151/73 98 05/20/17 00:00 Room Air 05/20/17 00:00 97.7 62 18 161/74 96 05/19/17 20:00 97.4 72 18 106/55 93 05/19/17 20:00 68 05/19/17 20:00 Room Air 05/19/17 16:00 97.9 63 20 140/66 95 I/O 05/19/17 05/19/17 05/19/17 05/20/17 05/20/17 05/20/17 07:00 15:00 23:00 07:00 15:00 23:00 Intake Total 1252 ml 834 ml 360 ml 899 ml Output Total 400 ml 450 ml 250 ml 600 ml Balance 852 ml 384 ml 110 ml 299 ml Intake Oral 480 ml 480 ml 360 ml 0 ml IV Total 772 ml 354 ml 899 ml Output Urine Total 350 ml 400 ml 250 ml 500 ml Drainage Total 50 ml 50 ml 100 ml # Bowel Movements 2 2 0 3 Laboratory Laboratory Tests Test 05/20/17 06:03 White Blood Count 11.4 Red Blood Count 3.93 Hemoglobin 11.1 Hematocrit 35.0 Mean Corpuscular Volume 89.1 Mean Corpuscular Hemoglobin 28.4 Mean Corpuscular Hemoglobin 31.8 Concent Red Cell Distribution Width 15.8 Platelet Count 134 Mean Platelet Volume 8.4 Neutrophils (%) (Auto) 87.7 Lymphocytes (%) (Auto) 7.1 Monocytes (%) (Auto) 4.5 Eosinophils (%) (Auto) 0.6 Basophils (%) (Auto) 0.1 Neutrophils # (Auto) 10.0 Lymphocytes # (Auto) 0.8 Monocytes # (Auto) 0.5 Eosinophils # (Auto) 0.1 Basophils # (Auto) 0.0 CBC Comment DIFF FINAL Differential Comment Physical Exam HEENT: Normocephalic; atraumatic; no jaundice CHEST: CTA, Diminished CARDIAC: Irregular ABDOMEN: +BS, soft, nondistended EXTREMITIES: No clubbing, cyanosis, or edema. SKIN: Normal; no rash; no jaundice. AGILE TESTER: Alert and oriented Assessment and Plan Plan ASSESSMENT: - Acute cholecystitis. Pt c/o decreased appetite and weight loss x 6 months and nausea x 1.5 weeks. He then developed significant RUQ pain last night. CT scan abdomen and pelvis (05/14/17)-----> Distended gallbladder containing air. Unless there is an explanation for gallbladder air based upon recent therapeutic intervention of some type, the appearance is concerning for cholecystitis with gas producing organisms. Correlation recommended. s/p Lap ramos (05/16) ---> acute gangrenous cholecystitis. Flagyl, Levaquin. - Leukocytosis. Flagyl, Levaquin. - Elevated LFTs, trending down. He had abn. imaging regarding the gb, this could be related to that. He also has long hx of alcohol use, 7 per week. He denies any known hx of cirrhosis, although cirrhosis and portal hypertension and splenomegaly was suspected on March 2017 CT scan. Will monitor. - Rectal bleeding. Pt does have a hx of partial colectomy for cancerous colon polyp in October. Pt states stage 1, did not require any further tx. He is on anticoagulation for A. fib. He has had an ongoing issue with constipation/impactions since his recent hospitalization and was taking Miralax and senokot at the rehab center. He was straining to move his bowels prior to admission and passed flatus, afterwards, he had a small amount of brbpr on the tissue, none in the toilet. He also had another episode yesterday morning, but has not had any further episodes. Per cardiology, will need to go back on Plavix as soon as possible and therefore we will plan for colonoscopy after cholecystectomy to evaluate his rectal bleeding before he restarts Plavix. D/W patient and . no further bleeding. will try colonoscopy tomorrow - Constipation, Senokot, Jaqui-Colace, lactulose prn, mom prn. - Abn. Wt. Loss, Decreased appetite. 30 lb weight loss over past 6 months- pt attributes to being in and out of the hospital and states he does not like the food. - Atrial fibrillation, coronary artery disease, htn. Pt has been on Coumadin for his atrial fibrillation. S/P Cath with stenting in [place] prior to his colectomy. Sees Dr. Hitchcock here. Was seen by Dr. Slade, needs to go back on Plavix as soon as possible after surgery - LUE swelling, possible DVT. 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 - Hx colon cancer. He reports that he underwent a colonoscopy in August 2016 and was found to have a cancerous polyp. He initially couldn't remember who did this, but then stated it was Dr. Mosquera. I offered to call his service, but he states that he only saw him the one time for the colonoscopy and requested that we go ahead and see him since we were already there. He had a laparoscopic partial colectomy at [facility] in [place] (he had to have cardiac cath with stenting at [facility] prior to having his surgery). He was told that this was Stage 1 and he did not need further treatment. - EGD with biopsy and colonoscopy with biopsy showed atrophic appearing gastritis. biopsies taken. Tiny duodenal polyp removed with cold biopsy. Small polypoid lesion removed at anastomosis with cold biopsy technique. Significant internal hemorrhoids are probable cause for blood in stool at time of admission. PLAN: - OK to resume anticoagulant in 4 hours. - GI evaluation is complete, followup in office in 2-3 weeks. - Protonix 40mg IV daily - Monitor HH - Supportive care - OK for discharge brom GI perspective. - Regular diet. Kyree Bradford MD May 20, 2017 13:44
--- NOTE | 2017-05-20 15:31 | HHI.PR ---
Subjective Interval History Alert, oriented, just back from endoscopy,, denies complaints Review of Systems Constitutional Constitutional Remarks 10 systems reviewed otherwise negative Vitals/Results Intake & Output 05/19/17 05/19/17 05/20/17 15:00 23:00 07:00 Intake Total 834 ml 360 ml 899 ml Output Total 450 ml 250 ml 600 ml Balance 384 ml 110 ml 299 ml Intake Oral 480 ml 360 ml 0 ml IV Total 354 ml 899 ml Output Urine Total 400 ml 250 ml 500 ml Drainage Total 50 ml 100 ml # Bowel Movements 2 0 3 Vital Signs Vital Signs Date Time Temp Pulse Resp B/P Pulse Ox O2 Delivery O2 Flow Rate FiO2 05/20/17 14:05 73 21 138/61 100 05/20/17 13:55 75 15 148/65 100 05/20/17 13:46 97.7 63 18 120/58 100 05/20/17 08:18 66 05/20/17 08:00 Room Air 05/20/17 08:00 97.4 59 18 150/69 98 05/20/17 04:00 97.5 60 18 151/73 98 05/20/17 00:00 Room Air 05/20/17 00:00 97.7 62 18 161/74 96 05/19/17 20:00 97.4 72 18 106/55 93 05/19/17 20:00 68 05/19/17 20:00 Room Air 05/19/17 16:00 97.9 63 20 140/66 95 CBC/BMP: 05/20/17 0603 05/19/17 0900 Lab Results Laboratory Tests Test 05/20/17 06:03 White Blood Count 11.4 TH/MM3 Red Blood Count 3.93 MIL/MM3 Hemoglobin 11.1 GM/DL Hematocrit 35.0 % Mean Corpuscular Volume 89.1 FL Mean Corpuscular Hemoglobin 28.4 PG Mean Corpuscular Hemoglobin 31.8 % Concent Red Cell Distribution Width 15.8 % Platelet Count 134 TH/MM3 Mean Platelet Volume 8.4 FL Neutrophils (%) (Auto) 87.7 % Lymphocytes (%) (Auto) 7.1 % Monocytes (%) (Auto) 4.5 % Eosinophils (%) (Auto) 0.6 % Basophils (%) (Auto) 0.1 % Neutrophils # (Auto) 10.0 TH/MM3 Lymphocytes # (Auto) 0.8 TH/MM3 Monocytes # (Auto) 0.5 TH/MM3 Eosinophils # (Auto) 0.1 TH/MM3 Basophils # (Auto) 0.0 TH/MM3 CBC Comment DIFF FINAL Differential Comment Physical Exam General General Appearance: No Acute Distress, Comfortable Eyes Eye Exam: Pupils Reactive Ears & Nose Ears & Nose Exam: Nasal Mucosa [place] Throat Throat Exam: Oral Mucosa [place] & Moist Pulmonary Resp Exam: Breath Sounds Equal Cardiology CV Exam: Normal Sinus Rhythm, Good Perfusion, Irregular Gastrointestinal/Abdomen GI Exam: Non-Tender, Bowel Sounds Present Musculoskeletal MS Exam: Normal Tone Integumentary Skin Exam: Warm, Dry Neurologic Neuro Exam: Awake, Speech Clear, Moving All Extremities Psychiatric Psych Exam: Appropriate Responses VTE Prophylaxis VTE Remarks Coumadin on hold Assessment/Plan Assessment/Plan Assessment Admitted with acute cholecystitis Status post cholecystectomy on 05/18/17 EGD with biopsy/colonoscopy on 05/20/17 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
[2017-05-20 16:00] VITALS: BP 150/67; PULSE 60; PULSE 64; RESP 18; TEMP 97.6; O2SAT 98
[2017-05-20 20:00] VITALS: BP 152/74; PULSE 60; PULSE 62; RESP 18; TEMP 97.5; O2SAT 97
[2017-05-20] MEDS: LEVOFLOXACIN 500 MG PREMIX INJ 100 ML IV SCH (20:47)
[2017-05-20] MEDS: ENOXAPARIN SODIUM 100 MG/ML SYRINGE SQ SCH (20:49)
[2017-05-21] VITALS (7 sets, daily range): BP systolic 145–156; BP diastolic 62–86; PULSE 58–63; RESP 18–20; TEMP 97.3–97.8; O2SAT 96–99
[2017-05-21] MEDS: metroNIDAZOLE 500 MG INJ 100 ML IV SCH ×3 (02:20→12:53)
[2017-05-21] MEDS: HYDROmorphone HCL PF 1 MG/ML VIAL IV PUSH PRN ×3 (02:21→13:00)
[2017-05-21] MEDS: SODIUM CHLOR 0.9% 1000 ML INJ 1,000 ML IV SCH (04:31)
[2017-05-21 06:32] LABS: BICARBONATE 19.3 MEQ/L (21.0-32.0); POTASSIUM 3.8 MEQ/L (3.5-5.1)
[2017-05-21 07:22] LABS: AUTOMATED NEUTROPHIL # 7.6 TH/MM3 (1.8-7.7); BASOPHIL % 0.1 % (0.0-2.0); EOSINOPHIL # 0.1 TH/MM3 (0-0.4); EOSINOPHIL % 1.3 % (0.0-4.0); HEMATOCRIT 35.2 % (39.0-51.0); LYMPH % 8.5 % (9.0-44.0); LYMPHOCYTE # 0.8 TH/MM3 (1.0-4.8); MEAN CELL VOLUME 89.4 FL (80.0-100.0); MEAN CORPUSCULAR HEMOGLOBIN 28.4 PG (27.0-34.0); MEAN CORPUSCULAR HGB CONC 31.8 % (32.0-36.0); MONO % 5.6 % (0.0-8.0); NEUT % 84.5 % (16.0-70.0); PLATELET COUNT 123 TH/MM3 (150-450); RED BLOOD COUNT 3.94 MIL/MM3 (4.50-5.90); WHITE BLOOD COUNT 8.9 TH/MM3 (4.0-11.0)
[2017-05-21 07:28] LABS: HEMO FLAGS AUTO DIFF
[2017-05-21] MEDS: PANTOPRAZOLE SODIUM 40 MG VIAL IV PUSH SCH (08:15)
[2017-05-21] MEDS: SODIUM CHLORIDE 0.9% FLUSH 10 ML FLUSH IV FLUSH SCH ×2 (08:17→21:00)
[2017-05-21] MEDS: DOCUSATE SODIUM 50 MG/SENNA 8.6 MG TAB PO SCH ×2 (08:23→21:39)
[2017-05-21] MEDS: ENOXAPARIN SODIUM 100 MG/ML SYRINGE SQ SCH ×2 (08:23→21:39)
[2017-05-21 09:29] LABS: OVALOCYTES 1+ (NORMAL); PLATELET ESTIMATE SMEAR LOW (NORMAL); PLATELET MORPHOLOGY NORMAL (NORMAL)
[2017-05-21 09:30] LABS: SCAN/DIFF AUTO DIFF CONFIRMED
--- NOTE | 2017-05-21 13:42 | HHI.PR ---
Subjective Remarks minimal abd. pain passing gas tolerating diet well some nausea no vomiting was able to work with PT smiling, in good spirits has minor in place, urinary retention no fever no cp no sob at bsd Objective Objective Results - Vital Signs Date Time Temp Pulse Resp B/P Pulse Ox O2 Delivery O2 Flow Rate FiO2 05/21/17 12:06 97.8 58 20 156/74 99 05/21/17 08:18 97.6 60 20 148/86 99 05/21/17 08:00 63 05/21/17 07:15 Room Air 05/21/17 04:00 97.3 60 20 145/62 96 05/21/17 00:00 97.5 59 18 145/65 96 05/20/17 20:00 97.5 62 18 152/74 97 05/20/17 20:00 Room Air 05/20/17 20:00 60 05/20/17 16:00 97.6 64 18 150/67 98 05/20/17 16:00 60 05/20/17 14:05 73 21 138/61 100 05/20/17 13:55 75 15 148/65 100 05/20/17 13:46 97.7 63 18 120/58 100 I/O 05/20/17 05/20/17 05/20/17 05/21/17 05/21/17 05/21/17 07:00 15:00 23:00 07:00 15:00 23:00 Intake Total 899 ml 730 ml 240 ml 1129 ml Output Total 600 ml 600 ml 150 ml Balance 299 ml 730 ml -360 ml 979 ml Intake Oral 0 ml 240 ml 240 ml IV Total 899 ml 330 ml 889 ml Other 400 ml Output Urine Total 500 ml 600 ml 150 ml Drainage Total 100 ml Bladder Scan Volume Amount 547 ml 547 ml # Bowel Movements 3 2 0 0 Result Diagram: 05/21/17 0550 05/21/17 0550 Imaging Last Impressions Abdomen/Pelvis CT 05/14/17 1144 Signed Impressions: Service Date/Time: Sunday, May 14, 2017 13:20 - CONCLUSION: Distended gallbladder containing air. Unless there is an explanation for gallbladder air based upon recent therapeutic intervention of some type, the appearance is concerning for cholecystitis with gas producing organisms. Correlation recommended. Sudarshan Mejias MD Chest X-Ray 05/14/17 1140 Signed Impressions: Service Date/Time: Sunday, May 14, 2017 11:45 - CONCLUSION: 1. No acute cardiopulmonary disease. Frederick Rios MD Other Results Laboratory Tests Test 05/21/17 05:50 White Blood Count 8.9 Red Blood Count 3.94 Hemoglobin 11.2 Hematocrit 35.2 Mean Corpuscular Volume 89.4 Mean Corpuscular Hemoglobin 28.4 Mean Corpuscular Hemoglobin 31.8 Concent Red Cell Distribution Width 16.0 Platelet Count 123 Mean Platelet Volume 8.1 Neutrophils (%) (Auto) 84.5 Lymphocytes (%) (Auto) 8.5 Monocytes (%) (Auto) 5.6 Eosinophils (%) (Auto) 1.3 Basophils (%) (Auto) 0.1 Neutrophils # (Auto) 7.6 Lymphocytes # (Auto) 0.8 Monocytes # (Auto) 0.5 Eosinophils # (Auto) 0.1 Basophils # (Auto) 0.0 CBC Comment AUTO DIFF Differential Comment AUTO DIFF CONFIRMED Platelet Estimate LOW Platelet Morphology Comment NORMAL Ovalocytes 1+ Sodium Level 143 Potassium Level 3.8 Chloride Level 116 Carbon Dioxide Level 19.3 Anion Gap 8 Blood Urea Nitrogen 28 Creatinine 1.18 Estimat Glomerular Filtration 59 Rate Random Glucose 88 Calcium Level 7.9 ROS General: Weakness Cardiac: Edema (left arm swelling ) GI: Abdominal Pain, N/V (no vomiting, only nausea ) Neuro/MS: Other (back and right knee pain ) Physical Exam Physical Exam GENERAL: This is a well-nourished, well-developed patient SKIN: Skin pale, cool dry. HEAD: Atraumatic. Normocephalic. No temporal or scalp tenderness. EYES: Pupils equal round and reactive. Extraocular motions intact. No scleral icterus. No injection or drainage. ENT: Nose without bleeding, purulent drainage or septal hematoma. Throat without erythema, tonsillar hypertrophy or exudate. Uvula midline. Airway patent. NECK: Trachea midline. No JVD or lymphadenopathy. Supple, nontender, no meningeal signs. CARDIOVASCULAR: Regular rate and rhythm without murmurs, gallops, or rubs. RESPIRATORY: Clear to auscultation. Breath sounds equal bilaterally. No wheezes , rales, or rhonchi. GASTROINTESTINAL: Abdomen soft, tender to palpation to right upper quadrant. Bowel sounds hypoactive 4.Voluntary guarding. S/P lap ramos, incisions intact. MUSCULOSKELETAL: No joint abnormality. Slight swelling to the right knee which appears to have improved since last admission. Bilat arm edema. NEUROLOGICAL: Awake, oriented x 3. No focal deficits. Speech clear. Urinary Catheter: Yes Minor insert reason: Obstruction/Retention Vascular Central Line Catheter: No A/P Diagnosis: (1) Acute cholecystitis (2) GI bleed (3) Atrial fibrillation (4) History of colon cancer (5) CAD (coronary artery disease) (6) Leukocytosis (7) Osteoarthritis (8) Neuropathy (9) GERD (gastroesophageal reflux disease) (10) HTN (hypertension) (11) HLD (hyperlipidemia) (12) BPH (benign prostatic hyperplasia) (13) [id number] kidney injury Assessment and Plan 87-year-old elderly male with recent hospitalizations for right knee pain and physical debility, currently in rehabilitation. Presents to the emergency room with complaint of rectal bleeding and sharp abdominal pain associated with nausea vomiting. Patient is on Coumadin. He was also on Plavix but has been stopped. CT of the abdomen with findings of distended gallbladder containing air. Abdominal pain, CT findings of distended gallbladder containing air, concerning for gas producing organisms. Leukocytosis -DC IVF -continue present diet Dilaudid as needed for pain management -DC abx -Kcentra and FFP given before surgery -s/p lap ramos - acute gangrenous cholecystitis 05/16 -post op doing well, tolerating diet. Cleared for dc by surgery Rectal bleeding, patient on Coumadin and was also on Plavix. Etiology unclear. Has history of colon cancer. -Gastroenterology has been consulted for evaluation, input is appreciated. -continue PPI -HH stable -S/P EGD and colonoscopy 05/20-mild gastritis antrum biopsy. Atrophic appearing gastritis body Biopsy taken. Duodenum: tiny polyp opposite to major papilla Biopsy taken with removal Anastomosis ileo- transverse colon: small polypoid lesion removed with cold biopsy technique. Rest of colon normal. Rectum: internal hemorrhoids. HTN -resume home meds Right knee pain, recent right knee effusion and steroid injection. Has severe osteoarthritis. Patient has been improving, has started to walk. -PT eval and tx -OOB daily Acute on chronic kidney injury, stable, stable A. fib, has pacemaker pacemaker History of CAD, CABG, EDNA stent August 2016. Was on Plavix. Cardiology has been consulted, case has been discussed with Dr. Slade. He recommends to try to do all procedures during this hospitalization and start patient back on Plavix and Coumadin when stable. From a cardiac standpoint, he cleared patient to proceed with surgery. -cardiac telemetry -Resume Plavix tomorrow -Continue Lovenox, resume Coumadin, follow INR daily Left arm swelling, + DVT -Continue Coumadin and Lovenox BPH -urinary retention yesterday, minor inserted -resume Flomax, given now. Resume Proscar -keep minor until tomorrow Neuropathy -resume home meds SCDs/Coumadin for DVT prophylaxis continue with PPI for GI prophylaxis Labs in am Follow INR CM for dc planning, poss. to SNF tomorrow will dc minor in am D/W RN D/W D/W pt and This patient was seen by myself and Dr. March, this note is written on his behalf Problem Qualifiers (1) GI bleed: Qualified Code: K92.2 - Gastrointestinal hemorrhage, unspecified gastrointestinal hemorrhage type (2) Atrial fibrillation: Qualified Code: I48.91 - Atrial fibrillation, unspecified type (3) CAD (coronary artery disease): Qualified Code: I25.10 - Coronary artery disease involving cherokee coronary artery of cherokee heart without angina pectoris (4) Leukocytosis: Qualified Code: D72.829 - Leukocytosis, unspecified type (5) Osteoarthritis: Qualified Code: M15.9 - Osteoarthritis of multiple joints, unspecified osteoarthritis type (6) GERD (gastroesophageal reflux disease): Qualified Code: K21.9 - Gastroesophageal reflux disease, esophagitis presence not specified (7) HTN (hypertension): Qualified Code: I10 - Essential hypertension (8) HLD (hyperlipidemia): Qualified Code: E78.5 - Hyperlipidemia, unspecified hyperlipidemia type (9) BPH (benign prostatic hyperplasia): Qualified Code: N40.0 - Benign prostatic hyperplasia, presence of lower urinary tract symptoms unspecified (10) [id number] kidney injury: Leeanne Franklin [facility] May 21, 2017 13:42
[2017-05-21] MEDS: FINASTERIDE 5 MG TAB PO SCH (14:35)
[2017-05-21] MEDS ORDERED: WARFARIN SOD 1 MG TAB PO SCH (16:00)
[2017-05-21 17:25] LABS: INTERNATIONAL NORMALIZED RATIO 1.4 RATIO; PROTHROMBIN TIME - PATIENT 15.6 SEC (9.8-11.6)
[2017-05-21] MEDS: TORSEMIDE 5 MG TAB PO SCH (17:43)
[2017-05-21] MEDS: TAMSULOSIN HCL 0.4 MG CAP PO SCH ×2 (17:43→21:40)
--- NOTE | 2017-05-21 18:30 | MR ---
cc: KYREE BRADFORD MD,TIM DATE: 05/20/2017 PROCEDURE Esophagogastroduodenoscopy and colonoscopy with biopsy. INDICATION GI bleed REFERRING PHYSICIAN: Dr. Chakraborty. PROCEDURE NOTE: After informed consent was obtained the patient was placed in the left side down position. He was sedated by the anesthesia service. EGD After adequate sedation was achieved, the Pentax videoscope was inserted in the oropharynx and advanced to the esophagus, stomach and into the descending duodenum. It was then slowly withdrawn examining the mucosal surfaces carefully. A biopsy was used to remove a diminutive polyp in the descending duodenum, opposite the major papilla. The scope was withdrawn back into the stomach. Antrum and biopsies were obtained there. A retroflex exam was performed of the fundus and cardia. Biopsy was obtained there. The scope was then straightened and pulsed slowly through the esophagus and the procedure was terminated. COLONOSCOPY Colonoscopy was then performed. Digital rectal examination was normal. The Pentax videoscope was inserted in the anal canal, advanced to the colon reaching the ileotransverse colon anastomosis. There was a small polypoid lesion there that was removed with cold biopsy technique. The scope was further withdrawn through the colon reaching the rectum. Retroflex examination was performed there. The scope was then straightened and pulled through the anal canal and the procedure was terminated. He tolerated both procedures well and was returned to the recovery area in good condition. FINDINGS: 1. The esophagus was normal. 2. In the stomach there was mild antral gastritis and atrophic appearing gastritis in the gastric body. Biopsies were taken from each area separately. 3. In the duodenum there was a diminutive polyp. In the descending duodenum opposite the major papilla, this was removed with cold forceps technique. 4. At the anastomosis between the ileum and the transverse colon, there was a small polypoid lesion that was removed with cold biopsy technique. It appeared benign. 5. The rest of the colon appeared normal. 6. In the rectum there were some internal hemorrhoids and this was most likely the cause for his initial bleeding. IMPRESSION: 1. Gastritis. 2. Duodenal polyp. 3. Polyp at the ileotransverse colon anastomosis. 4. Hemorrhoids. RECOMMENDATIONS: 1. GI evaluation is now complete. The patient may be advanced to regular diet and may be discharged home if he is otherwise stable. 2. You may restart his anticoagulation regimen in 4 hours. 3. He should follow up in the office in 2-3 weeks for his biopsy results. Kyree Bradford MD [facility] /1:53 PM /6:13 PM
--- NOTE | 2017-05-21 19:02 | HHI.GIFU ---
Subjective Remarks Pt has no complaints at present. Eating OK. No bleeding. He has restarted his plavix. He is expecting to be released to rehab in 2 days. He does not usually take a laxative and sometimes has trouble with hard stools. Objective Vitals I&O Vital Signs Date Time Temp Pulse Resp B/P Pulse Ox O2 Delivery O2 Flow Rate FiO2 05/21/17 16:25 97.7 60 19 149/71 99 05/21/17 12:06 97.8 58 20 156/74 99 05/21/17 08:18 97.6 60 20 148/86 99 05/21/17 08:00 63 05/21/17 07:15 Room Air 05/21/17 04:00 97.3 60 20 145/62 96 05/21/17 00:00 97.5 59 18 145/65 96 05/20/17 20:00 97.5 62 18 152/74 97 05/20/17 20:00 Room Air 05/20/17 20:00 60 I/O 05/20/17 05/20/17 05/20/17 05/21/17 05/21/17 05/21/17 07:00 15:00 23:00 07:00 15:00 23:00 Intake Total 899 ml 730 ml 240 ml 1129 ml 933 ml Output Total 600 ml 600 ml 150 ml 300 ml Balance 299 ml 730 ml -360 ml 979 ml 633 ml Intake Oral 0 ml 240 ml 240 ml 360 ml IV Total 899 ml 330 ml 889 ml 573 ml Other 400 ml Output Urine Total 500 ml 600 ml 150 ml 300 ml Drainage Total 100 ml Bladder Scan Volume Amount 547 ml 547 ml 547 ml # Bowel Movements 3 2 0 0 0 Laboratory Laboratory Tests Test 05/21/17 05/21/17 05:50 16:58 White Blood Count 8.9 Red Blood Count 3.94 Hemoglobin 11.2 Hematocrit 35.2 Mean Corpuscular Volume 89.4 Mean Corpuscular Hemoglobin 28.4 Mean Corpuscular Hemoglobin 31.8 Concent Red Cell Distribution Width 16.0 Platelet Count 123 Mean Platelet Volume 8.1 Neutrophils (%) (Auto) 84.5 Lymphocytes (%) (Auto) 8.5 Monocytes (%) (Auto) 5.6 Eosinophils (%) (Auto) 1.3 Basophils (%) (Auto) 0.1 Neutrophils # (Auto) 7.6 Lymphocytes # (Auto) 0.8 Monocytes # (Auto) 0.5 Eosinophils # (Auto) 0.1 Basophils # (Auto) 0.0 CBC Comment AUTO DIFF Differential Comment AUTO DIFF CONFIRMED Platelet Estimate LOW Platelet Morphology Comment NORMAL Ovalocytes 1+ Sodium Level 143 Potassium Level 3.8 Chloride Level 116 Carbon Dioxide Level 19.3 Anion Gap 8 Blood Urea Nitrogen 28 Creatinine 1.18 Estimat Glomerular Filtration 59 Rate Random Glucose 88 Calcium Level 7.9 Prothrombin Time 15.6 Prothromb Time International 1.4 Ratio Physical Exam HEENT: Normocephalic; atraumatic; no jaundice CHEST: CTA, Diminished CARDIAC: Irregular ABDOMEN: +BS, soft, nondistended EXTREMITIES: No clubbing. Left arm is edematous. SKIN: Normal; no rash; no jaundice. 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 Pt c/o decreased appetite and weight loss x 6 months and nausea x 1.5 weeks. He then developed significant RUQ pain last night. CT scan abdomen and pelvis (05/14/17)-----> Distended gallbladder containing air. Unless there is an explanation for gallbladder air based upon recent therapeutic intervention of some type, the appearance is concerning for cholecystitis with gas producing organisms. Correlation recommended. s/p Lap ramos (05/16) ---> acute gangrenous cholecystitis. Flagyl, Levaquin. - Leukocytosis. Flagyl, Levaquin. - Elevated LFTs, trending down. He had abn. imaging regarding the gb, this could be related to that. He also has long hx of alcohol use, 7 per week. He denies any known hx of cirrhosis, although cirrhosis and portal hypertension and splenomegaly was suspected on March [address] scan. Will monitor. - Rectal bleeding. Pt does have a hx of partial colectomy for cancerous colon polyp in October. Pt states stage 1, did not require any further tx. He is on anticoagulation for A. fib. He has had an ongoing issue with constipation/impactions since his recent hospitalization and was taking Miralax and senokot at the rehab center. He was straining to move his bowels prior to admission and passed flatus, afterwards, he had a small amount of brbpr on the tissue, none in the toilet. He also had another episode yesterday morning, but has not had any further episodes. Per cardiology, will need to go back on Plavix as soon as possible and therefore we will plan for colonoscopy after cholecystectomy to evaluate his rectal bleeding before he restarts Plavix. D/W patient and . no further bleeding. will try colonoscopy tomorrow - Constipation, Senokot, Jaqui-Colace, lactulose prn, mom prn. - Abn. Wt. Loss, Decreased appetite. 30 lb weight loss over past 6 months- pt attributes to being in and out of the hospital and states he does not like the food. - Atrial fibrillation, coronary artery disease, htn. Pt has been on Coumadin for his atrial fibrillation. S/P Cath with stenting in [place] prior to his colectomy. Sees Dr. Hitchcock here. Was seen by Dr. Slade, needs to go back on Plavix as soon as possible after surgery - LUE swelling, possible DVT. 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 - Hx colon cancer. He reports that he underwent a colonoscopy in August 2016 and was found to have a cancerous polyp. He initially couldn't remember who did this, but then stated it was Dr. Mosquera. I offered to call his service, but he states that he only saw him the one time for the colonoscopy and requested that we go ahead and see him since we were already there. He had a laparoscopic partial colectomy at [facility] in [place] (he had to have cardiac cath with stenting [place] prior to having his surgery). He was told that this was Stage 1 and he did not need further treatment. - EGD with biopsy and colonoscopy with biopsy showed atrophic appearing gastritis. biopsies taken. Tiny duodenal polyp removed with cold biopsy. Small polypoid lesion removed at anastomosis with cold biopsy technique. Significant internal hemorrhoids are probable cause for blood in stool at time of admission. - Constipation with bleeding on admission probably due to his hemorrhoids PLAN: - Daily dose of Miralax 17gm - Protonix 40mg IV daily - Monitor HH - Supportive care - OK for discharge brom GI perspective. - Regular diet. - followup in [place] in 2 weeks for biopsy results. yKree Bradford MD May 21, 2017 19:02
[2017-05-21] MEDS ORDERED: TAMSULOSIN HCL 0.4 MG CAP PO SCH (21:00)
[2017-05-21] MEDS: GABAPENTIN 300 MG CAP PO SCH (21:39)
[2017-05-21] MEDS: ENALAPRIL MALEATE 2.5 MG TAB PO SCH (21:39)
[2017-05-21] MEDS: MELATONIN 5 MG TAB PO PRN (21:39)
[2017-05-22] VITALS: BP 128/62; PULSE 61; RESP 18; TEMP 97.9; O2SAT 98
[2017-05-22 04:00] VITALS: BP 120/69; PULSE 57; RESP 18; TEMP 97.9; O2SAT 99
[2017-05-22 05:24] LABS: HEMATOCRIT 34.2 % (39.0-51.0); MEAN CELL VOLUME 89.4 FL (80.0-100.0); MEAN CORPUSCULAR HEMOGLOBIN 28.4 PG (27.0-34.0); MEAN CORPUSCULAR HGB CONC 31.8 % (32.0-36.0); PLATELET COUNT 130 TH/MM3 (150-450); RED BLOOD COUNT 3.82 MIL/MM3 (4.50-5.90); RED CELL DISTRIBUTION WIDTH 16.1 % (11.6-17.2); REVIEW FLAG FINAL; WHITE BLOOD COUNT 6.6 TH/MM3 (4.0-11.0)
[2017-05-22 05:32] LABS: INTERNATIONAL NORMALIZED RATIO 1.4 RATIO; PROTHROMBIN TIME - PATIENT 15.8 SEC (9.8-11.6)
[2017-05-22 05:46] LABS: BICARBONATE 22.7 MEQ/L (21.0-32.0); POTASSIUM 3.7 MEQ/L (3.5-5.1)
[2017-05-22 08:00] VITALS: BP 124/58; PULSE 57; PULSE 65; RESP 18; TEMP 98; O2SAT 93
[2017-05-22] MEDS: POLYETHYLENE GLYCOL 17 GM PKG PO SCH (09:00)
[2017-05-22] MEDS: DOCUSATE SODIUM 50 MG/SENNA 8.6 MG TAB PO SCH ×2 (09:00→19:59)
[2017-05-22] MEDS: HYDROmorphone HCL PF 1 MG/ML VIAL IV PUSH PRN ×2 (09:55→23:03)
[2017-05-22] MEDS: PANTOPRAZOLE SODIUM 40 MG VIAL IV PUSH SCH (09:56)
[2017-05-22] MEDS: FERROUS SULFATE 325 MG (65 MG ELEMENTAL IRON) TAB PO SCH (10:01)
[2017-05-22] MEDS: TORSEMIDE 5 MG TAB PO SCH (10:01)
[2017-05-22] MEDS: GABAPENTIN 300 MG CAP PO SCH ×2 (10:01→20:00)
[2017-05-22] MEDS: FINASTERIDE 5 MG TAB PO SCH (10:01)
[2017-05-22] MEDS: ISOSORBIDE MONONITRATE 60 MG TAB PO SCH (10:01)
[2017-05-22] MEDS: EZETIMIBE 10 MG TAB PO SCH (10:01)
[2017-05-22] MEDS: CLOPIDOGREL 75 MG TAB PO SCH (10:01)
[2017-05-22] MEDS: ENOXAPARIN SODIUM 100 MG/ML SYRINGE SQ SCH ×2 (10:02→19:58)
[2017-05-22] MEDS: SODIUM CHLORIDE 0.9% FLUSH 10 ML FLUSH IV FLUSH SCH ×2 (10:03→20:01)
[2017-05-22 12:00] VITALS: BP 113/58; PULSE 60; RESP 18; TEMP 97.9; O2SAT 100
--- NOTE | 2017-05-22 14:52 | PD.CARD.PN ---
Subjective Subjective Remarks Tolerating PO. No recurrent bleeding. No CP or SOB. Stood at bedside with assistance Objective Medications Current Medications Medications (Trade) Dose Ordered Sig/Arielle Route Start Time Stop Time Status Last Admin (NS Flush) 2 ml UNSCH PRN IV FLUSH 05/14/17 15:30 (NS Flush) 2 ml BID IV FLUSH 05/14/17 21:00 05/22/17 10:03 (Tylenol) 650 mg Q4H PRN PO 05/14/17 15:30 (Zofran Inj) 4 mg Q6H PRN IVP 05/14/17 15:30 05/18/17 05:55 (Narcan Inj) 0.4 mg UNSCH PRN IV 05/14/17 15:30 (Jaqui-Colace) 1 tab BID PO 05/14/17 21:00 05/21/17 21:39 (Milk Of Magnesia Liq) 30 ml Q12H PRN PO 05/14/17 15:30 (Senokot) 17.2 mg Q12H PRN PO 05/14/17 15:30 (Dulcolax Supp) 10 mg DAILY PRN RECTAL 05/14/17 15:30 (Lactulose Liq) 30 ml DAILY PRN PO 05/14/17 15:30 (Dilaudid Pf Inj) 0.5 mg Q3H PRN IV PUSH 05/14/17 20:13 05/22/17 09:55 (Protonix Inj) 40 mg Q24H IV PUSH 05/16/17 09:00 05/22/17 09:56 (Vasotec) 2.5 mg HS PO 05/21/17 21:00 05/21/17 21:39 (Zetia) 10 mg DAILY PO 05/22/17 09:00 05/22/17 10:01 (Ferrous Sulfate) 325 mg DAILY PO 05/22/17 09:00 05/22/17 10:01 (Proscar) 5 mg DAILY PO 05/21/17 14:00 05/22/17 10:01 (Neurontin) 300 mg BID PO 05/21/17 21:00 05/22/17 10:01 (Imdur) 60 mg DAILY PO 05/22/17 09:00 05/22/17 10:01 (Demadex) 10 mg DAILY PO 05/21/17 14:00 05/22/17 10:01 (Plavix) 75 mg DAILY PO 05/22/17 09:00 05/22/17 10:01 (Melatonin) 5 mg HS PRN PO 05/21/17 14:00 05/21/17 21:39 (Flomax) 0.4 mg HS PO 05/21/17 14:00 05/21/17 21:40 (Coumadin) 1 mg DAILY@16 PO 05/21/17 16:00 Hold (Lovenox Inj) 90 mg Q12H SQ 05/21/17 21:00 05/22/17 10:02 (Miralax) 17 gm DAILY PO 05/22/17 09:00 Vital Signs / I&O Vital Signs Date Time Temp Pulse Resp B/P Pulse Ox O2 Delivery O2 Flow Rate FiO2 05/22/17 12:00 97.9 60 18 113/58 100 05/22/17 08:00 65 05/22/17 08:00 98.0 57 18 124/58 93 05/22/17 07:15 Room Air 05/22/17 04:00 97.9 57 18 120/69 99 05/22/17 00:00 97.9 61 18 128/62 98 05/21/17 20:00 97.7 60 18 153/65 98 05/21/17 20:00 62 05/21/17 20:00 Room Air 05/21/17 16:25 97.7 60 19 149/71 99 I/O 05/21/17 05/21/17 05/21/17 05/22/17 05/22/17 05/22/17 07:00 15:00 23:00 07:00 15:00 23:00 Intake Total 1129 ml 933 ml 832 ml 693 ml Output Total 150 ml 300 ml 300 ml 1350 ml Balance 979 ml 633 ml 532 ml -657 ml Intake Oral 240 ml 360 ml 480 ml 240 ml IV Total 889 ml 573 ml 352 ml 453 ml Output Urine Total 150 ml 300 ml 300 ml 1350 ml Bladder Scan Volume Amount 547 ml 547 ml 547 ml # Bowel Movements 0 0 1 Physical Exam GENERAL: Elderly male, no distress, at bedside SKIN: Warm and dry. HEAD: Normocephalic. EYES: No scleral icterus. No injection or drainage. NECK: Supple, trachea midline. No JVD or lymphadenopathy. CARDIOVASCULAR: PPM, regular rate and rhythm RESPIRATORY: Breath sounds equal bilaterally. No accessory muscle use. GASTROINTESTINAL: Mild tenderness to palpation MUSCULOSKELETAL: No cyanosis, or edema. BACK: Nontender without obvious deformity. No CVA tenderness. Laboratory Laboratory Tests Test 05/21/17 05/22/17 16:58 04:55 Prothrombin Time 15.6 SEC 15.8 SEC Prothromb Time International 1.4 RATIO 1.4 RATIO Ratio White Blood Count 6.6 TH/MM3 Red Blood Count 3.82 MIL/MM3 Hemoglobin 10.9 GM/DL Hematocrit 34.2 % Mean Corpuscular Volume 89.4 FL Mean Corpuscular Hemoglobin 28.4 PG Mean Corpuscular Hemoglobin 31.8 % Concent Red Cell Distribution Width 16.1 % Platelet Count 130 TH/MM3 Mean Platelet Volume 8.0 FL Sodium Level 144 MEQ/L Potassium Level 3.7 MEQ/L Chloride Level 115 MEQ/L Carbon Dioxide Level 22.7 MEQ/L Anion Gap 6 MEQ/L Blood Urea Nitrogen 22 MG/DL Creatinine 1.23 MG/DL Estimat Glomerular Filtration 56 ML/MIN Rate Random Glucose 93 MG/DL Calcium Level 7.5 MG/DL Assessment and Plan Problem List: (1) GI bleed (2) Atrial fibrillation (3) CAD (coronary artery disease) (4) Cardiomyopathy (5) HTN (hypertension) (6) HLD (hyperlipidemia) (7) Pacemaker Assessment and Plan PLAN Discussed switching from warfarin to novel anticoagulant. We will resume Coumadin for now and discuss further in the office after discharge. Stop Lovenox once INR >2. Plavix restarted Ok for discharge from cardiac standpoint. Patient seen and evaluated by Dr. Hitchcock Problem Qualifiers (1) GI bleed: Qualified Code: K92.2 - Gastrointestinal hemorrhage, unspecified gastrointestinal hemorrhage type (2) Atrial fibrillation: Qualified Code: I48.91 - Atrial fibrillation, unspecified type (3) CAD (coronary artery disease): Qualified Code: I25.10 - Coronary artery disease involving [place] coronary artery of [place] heart without angina pectoris (4) HTN (hypertension): Qualified Code: I10 - Essential hypertension (5) HLD (hyperlipidemia): Qualified Code: E78.5 - Hyperlipidemia, unspecified hyperlipidemia type Heidi Lynn May 22, 2017 14:52
[2017-05-22 16:00] VITALS: BP 120/55; PULSE 62; RESP 18; TEMP 98; O2SAT 100
[2017-05-22] MEDS ORDERED: WARFARIN SOD 2 MG TAB PO SCH (18:15)
[2017-05-22] MEDS ORDERED: PERC5TAB12 PO (18:22)
--- NOTE | 2017-05-22 19:49 | HHI.PR ---
Subjective Interval History Alert, verbal, oriented 2, no distress, seen in the presence of family, he would like to go to the detention Review of Systems Constitutional Constitutional Remarks 10 systems reviewed otherwise negative Vitals/Results Intake & Output 05/21/17 05/21/17 05/22/17 15:00 23:00 07:00 Intake Total 933 ml 832 ml 693 ml Output Total 300 ml 300 ml 1350 ml Balance 633 ml 532 ml -657 ml Intake Oral 360 ml 480 ml 240 ml IV Total 573 ml 352 ml 453 ml Output Urine Total 300 ml 300 ml 1350 ml Bladder Scan Volume Amount 547 ml 547 ml # Bowel Movements 0 1 Vital Signs Vital Signs Date Time Temp Pulse Resp B/P Pulse Ox O2 Delivery O2 Flow Rate FiO2 05/22/17 16:00 98.0 62 18 120/55 100 05/22/17 12:00 97.9 60 18 113/58 100 05/22/17 08:00 65 05/22/17 08:00 98.0 57 18 124/58 93 05/22/17 07:15 Room Air 05/22/17 04:00 97.9 57 18 120/69 99 05/22/17 00:00 97.9 61 18 128/62 98 05/21/17 20:00 97.7 60 18 153/65 98 05/21/17 20:00 62 05/21/17 20:00 Room Air CBC/BMP: 05/22/17 0455 05/22/17 0455 Lab Results Laboratory Tests Test 05/22/17 04:55 White Blood Count 6.6 TH/MM3 Red Blood Count 3.82 MIL/MM3 Hemoglobin 10.9 GM/DL Hematocrit 34.2 % Mean Corpuscular Volume 89.4 FL Mean Corpuscular Hemoglobin 28.4 PG Mean Corpuscular Hemoglobin 31.8 % Concent Red Cell Distribution Width 16.1 % Platelet Count 130 TH/MM3 Mean Platelet Volume 8.0 FL Prothrombin Time 15.8 SEC Prothromb Time International 1.4 RATIO Ratio Sodium Level 144 MEQ/L Potassium Level 3.7 MEQ/L Chloride Level 115 MEQ/L Carbon Dioxide Level 22.7 MEQ/L Anion Gap 6 MEQ/L Blood Urea Nitrogen 22 MG/DL Creatinine 1.23 MG/DL Estimat Glomerular Filtration 56 ML/MIN Rate Random Glucose 93 MG/DL Calcium Level 7.5 MG/DL Physical Exam General General Appearance: No Acute Distress, Comfortable Eyes Eye Exam: Pupils Reactive Ears & Nose Ears & Nose Exam: Nasal Mucosa [place] Throat Throat Exam: Oral Mucosa [place] & Moist Pulmonary Resp Exam: Breath Sounds Equal Cardiology CV Exam: Normal Sinus Rhythm, Good Perfusion, Irregular Gastrointestinal/Abdomen GI Exam: Non-Tender, Bowel Sounds Present Musculoskeletal MS Exam: Normal Tone Integumentary Skin Exam: Warm, Dry Neurologic Neuro Exam: Awake, Speech Clear, Moving All Extremities Psychiatric Psych Exam: Appropriate Responses VTE Prophylaxis VTE Remarks Coumadin on hold Assessment/Plan Assessment/Plan Assessment Admitted with acute cholecystitis Status post cholecystectomy on 05/18/17 EGD with biopsy/colonoscopy on 05/20/17 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
[2017-05-22] MEDS: MELATONIN 5 MG TAB PO PRN (19:59)
[2017-05-22 20:00] VITALS: BP 128/60; PULSE 60; RESP 20; TEMP 97.9; O2SAT 100
[2017-05-22] MEDS: ENALAPRIL MALEATE 2.5 MG TAB PO SCH (20:00)
[2017-05-22] MEDS: TAMSULOSIN HCL 0.4 MG CAP PO SCH (20:00)
[2017-05-23] VITALS: BP 115/58; PULSE 87; RESP 18; TEMP 98; O2SAT 100
[2017-05-23 04:00] VITALS: BP 123/59; PULSE 60; RESP 18; TEMP 97.6; O2SAT 96
[2017-05-23 08:00] VITALS: BP 111/57; PULSE 61; RESP 18; TEMP 97.5; O2SAT 97
[2017-05-23] MEDS: GABAPENTIN 300 MG CAP PO SCH (08:52)
[2017-05-23] MEDS: FINASTERIDE 5 MG TAB PO SCH (08:52)
[2017-05-23] MEDS: FERROUS SULFATE 325 MG (65 MG ELEMENTAL IRON) TAB PO SCH (08:52)
[2017-05-23] MEDS: ISOSORBIDE MONONITRATE 60 MG TAB PO SCH (08:52)
[2017-05-23] MEDS: CLOPIDOGREL 75 MG TAB PO SCH (08:52)
[2017-05-23] MEDS: ENOXAPARIN SODIUM 100 MG/ML SYRINGE SQ SCH (08:53)
[2017-05-23] MEDS: PANTOPRAZOLE SODIUM 40 MG VIAL IV PUSH SCH (08:53)
[2017-05-23] MEDS: SODIUM CHLORIDE 0.9% FLUSH 10 ML FLUSH IV FLUSH SCH (08:53)
[2017-05-23] MEDS: POLYETHYLENE GLYCOL 17 GM PKG PO SCH (08:54)
[2017-05-23] MEDS: DOCUSATE SODIUM 50 MG/SENNA 8.6 MG TAB PO SCH (08:54)
[2017-05-23 10:26] VITALS: PULSE 62
--- NOTE | 2017-05-23 10:53 | PD.CARD.PN ---
Subjective Subjective Remarks The patient denies CP or SOB. Left upper extremity swollen. Tolerating PO Objective Medications Current Medications Medications (Trade) Dose Ordered Sig/Arielle Route Start Time Stop Time Status Last Admin (NS Flush) 2 ml UNSCH PRN IV FLUSH 05/14/17 15:30 (NS Flush) 2 ml BID IV FLUSH 05/14/17 21:00 05/23/17 08:53 (Tylenol) 650 mg Q4H PRN PO 05/14/17 15:30 (Zofran Inj) 4 mg Q6H PRN IVP 05/14/17 15:30 05/18/17 05:55 (Narcan Inj) 0.4 mg UNSCH PRN IV 05/14/17 15:30 (Jaqui-Colace) 1 tab BID PO 05/14/17 21:00 05/21/17 21:39 (Milk Of Magnesia Liq) 30 ml Q12H PRN PO 05/14/17 15:30 (Senokot) 17.2 mg Q12H PRN PO 05/14/17 15:30 (Dulcolax Supp) 10 mg DAILY PRN RECTAL 05/14/17 15:30 (Lactulose Liq) 30 ml DAILY PRN PO 05/14/17 15:30 (Dilaudid Pf Inj) 0.5 mg Q3H PRN IV PUSH 05/14/17 20:13 05/22/17 23:03 (Protonix Inj) 40 mg Q24H IV PUSH 05/16/17 09:00 05/23/17 08:53 (Vasotec) 2.5 mg HS PO 05/21/17 21:00 05/22/17 20:00 (Zetia) 10 mg DAILY PO 05/22/17 09:00 05/22/17 10:01 (Ferrous Sulfate) 325 mg DAILY PO 05/22/17 09:00 05/23/17 08:52 (Proscar) 5 mg DAILY PO 05/21/17 14:00 05/23/17 08:52 (Neurontin) 300 mg BID PO 05/21/17 21:00 05/23/17 08:52 (Imdur) 60 mg DAILY PO 05/22/17 09:00 05/23/17 08:52 (Demadex) 10 mg DAILY PO 05/21/17 14:00 05/22/17 10:01 (Plavix) 75 mg DAILY PO 05/22/17 09:00 05/23/17 08:52 (Melatonin) 5 mg HS PRN PO 05/21/17 14:00 05/22/17 19:59 (Flomax) 0.4 mg HS PO 05/21/17 14:00 05/22/17 20:00 (Lovenox Inj) 90 mg Q12H SQ 05/21/17 21:00 05/23/17 08:53 (Miralax) 17 gm DAILY PO 05/22/17 09:00 (Coumadin) 2 mg DAILY@16 PO 05/22/17 18:15 05/22/17 18:29 Vital Signs / I&O Vital Signs Date Time Temp Pulse Resp B/P Pulse Ox O2 Delivery O2 Flow Rate FiO2 05/23/17 10:26 62 05/23/17 04:00 97.6 60 18 123/59 96 05/23/17 00:00 98.0 87 18 115/58 100 05/22/17 20:00 97.9 60 20 128/60 100 05/22/17 20:00 Room Air 05/22/17 16:00 98.0 62 18 120/55 100 05/22/17 12:00 97.9 60 18 113/58 100 I/O 05/22/17 05/22/17 05/22/17 05/23/17 05/23/17 05/23/17 07:00 15:00 23:00 07:00 15:00 23:00 Intake Total 693 ml 1376 ml 120 ml 120 ml Output Total 1350 ml 1220 ml 300 ml 1100 ml Balance -657 ml 156 ml -180 ml -980 ml Intake Oral 240 ml 960 ml 120 ml 120 ml IV Total 453 ml 416 ml Output Urine Total 1350 ml 1220 ml 300 ml 1100 ml Bladder Scan Volume Amount 547 ml 547 ml # Bowel Movements 1 0 1 0 Physical Exam GENERAL: Elderly male, no distress, at bedside SKIN: Warm and dry. HEAD: Normocephalic. EYES: No scleral icterus. No injection or drainage. NECK: Supple, trachea midline. No JVD or lymphadenopathy. CARDIOVASCULAR: PPM, regular rate and rhythm RESPIRATORY: Breath sounds equal bilaterally. No accessory muscle use. GASTROINTESTINAL: Mild tenderness to palpation MUSCULOSKELETAL: No cyanosis,LUE swelling BACK: Nontender without obvious deformity. No CVA tenderness. Assessment and Plan Problem List: (1) GI bleed (2) Atrial fibrillation (3) CAD (coronary artery disease) (4) Cardiomyopathy (5) HTN (hypertension) (6) HLD (hyperlipidemia) (7) Pacemaker (8) DVT (deep venous thrombosis) Assessment and Plan PLAN Discussed switching from warfarin to novel anticoagulant. We will resume Coumadin for now and discuss further in the office after discharge. Stop Lovenox once INR >2. Plavix restarted Ok for discharge from cardiac standpoint. Patient seen and evaluated by Dr. Hitchcock Problem Qualifiers (1) GI bleed: Qualified Code: K92.2 - Gastrointestinal hemorrhage, unspecified gastrointestinal hemorrhage type (2) Atrial fibrillation: Qualified Code: I48.91 - Atrial fibrillation, unspecified type (3) CAD (coronary artery disease): Qualified Code: I25.10 - Coronary artery disease involving [place] coronary artery of [place] heart without angina pectoris (4) HTN (hypertension): Qualified Code: I10 - Essential hypertension (5) HLD (hyperlipidemia): Qualified Code: E78.5 - Hyperlipidemia, unspecified hyperlipidemia type (6) DVT (deep venous thrombosis): Qualified Code: I82.622 - Acute deep vein thrombosis (DVT) of other vein of left upper extremity Heidi Lynn May 23, 2017 10:53
--- NOTE | 2017-05-23 11:05 | HHI.PR ---
Subjective Interval History Alert, oriented, and denies complaints, Review of Systems Constitutional Constitutional Remarks 10 systems reviewed otherwise negative Vitals/Results Intake & Output 05/22/17 05/22/17 05/23/17 15:00 23:00 07:00 Intake Total 1376 ml 120 ml 120 ml Output Total 1220 ml 300 ml 1100 ml Balance 156 ml -180 ml -980 ml Intake Oral 960 ml 120 ml 120 ml IV Total 416 ml Output Urine Total 1220 ml 300 ml 1100 ml Bladder Scan Volume Amount 547 ml 547 ml # Bowel Movements 0 1 0 Vital Signs Vital Signs Date Time Temp Pulse Resp B/P Pulse Ox O2 Delivery O2 Flow Rate FiO2 05/23/17 10:26 62 05/23/17 04:00 97.6 60 18 123/59 96 05/23/17 00:00 98.0 87 18 115/58 100 05/22/17 20:00 97.9 60 20 128/60 100 05/22/17 20:00 Room Air 05/22/17 16:00 98.0 62 18 120/55 100 05/22/17 12:00 97.9 60 18 113/58 100 CBC/BMP: 05/22/17 0455 05/22/17 0455 Physical Exam General General Appearance: Well Developed, No Acute Distress, Comfortable Eyes Eye Exam: Pupils Reactive Ears & Nose Ears & Nose Exam: Nasal Mucosa [place] Throat Throat Exam: Oral Mucosa [place] & Moist Pulmonary Resp Exam: Breath Sounds Equal Cardiology CV Exam: Normal Sinus Rhythm, Good Perfusion, Irregular Gastrointestinal/Abdomen GI Exam: Non-Tender, Bowel Sounds Present Musculoskeletal MS Exam: Normal Tone Integumentary Skin Exam: Warm, Dry Neurologic Neuro Exam: Awake, Speech Clear, Moving All Extremities Psychiatric Psych Exam: Appropriate Responses VTE Prophylaxis VTE Prophylaxis Meds: Coumadin, Lovenox VTE Remarks Coumadin on hold Assessment/Plan Assessment/Plan L Assessment Admitted with acute cholecystitis Status post cholecystectomy on 05/18/17 EGD with biopsy/colonoscopy on 05/20/17 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
[2017-05-23 12:00] VITALS: BP 108/56; PULSE 62; RESP 20; TEMP 97.9; O2SAT 92
[2017-05-23] MEDS: TORSEMIDE 5 MG TAB PO SCH (12:26)
[2017-05-23] MEDS: EZETIMIBE 10 MG TAB PO SCH (12:27)
[2017-05-23 13:46] LABS: INTERNATIONAL NORMALIZED RATIO 1.5 RATIO; PROTHROMBIN TIME - PATIENT 16.4 SEC (9.8-11.6)
== END 2017-05-23 13:30 | DRG 357 ==
LOC: NEPE 11:09 → NEDA 14:31 → N04B 19:15
PROVIDERS: ADMIT Specialist; ATTEND Specialist
PROC: 30233K1 Transfusion of Nonautologous Frozen Plasma into Peripheral Vein, Percutaneous Approach (ICD-10-PCS; 2017-05-14)
PROC: 0FT44ZZ Resection of Gallbladder, Percutaneous Endoscopic Approach (ICD-10-PCS; principal; 2017-05-16 10:56)
PROC: 0DB98ZX Excision of Duodenum, Via Natural or Artificial Opening Endoscopic, Diagnostic (ICD-10-PCS; 2017-05-20)
PROC: 0DB68ZX Excision of Stomach, Via Natural or Artificial Opening Endoscopic, Diagnostic (ICD-10-PCS; 2017-05-20)
PROC: 0DBL8ZX Excision of Transverse Colon, Via Natural or Artificial Opening Endoscopic, Diagnostic (ICD-10-PCS; 2017-05-20)
DX: K64.8 Other hemorrhoids (principal); K92.1 Melena; K81.0 Acute cholecystitis; N17.9 Acute kidney failure, unspecified; K56.7 Ileus, unspecified; I42.9 Cardiomyopathy, unspecified; I82.622 Acute embolism and thrombosis of deep veins of left upper extremity; I49.5 Sick sinus syndrome; I13.0 Hypertensive heart and chronic kidney disease with heart failure and stage 1 through stage 4 chronic kidney disease, or unspecified chronic kidney disease; G62.9 Polyneuropathy, unspecified; I48.2 Chronic atrial fibrillation; I50.9 Heart failure, unspecified; R63.0 Anorexia; K31.7 Polyp of stomach and duodenum; E78.5 Hyperlipidemia, unspecified; I25.10 Atherosclerotic heart disease of native coronary artery without angina pectoris; K21.0 Gastro-esophageal reflux disease with esophagitis; N18.9 Chronic kidney disease, unspecified; N40.0 Benign prostatic hyperplasia without lower urinary tract symptoms; M17.11 Unilateral primary osteoarthritis, right knee; Z95.0 Presence of cardiac pacemaker; Z79.01 Long term (current) use of anticoagulants; Z95.1 Presence of aortocoronary bypass graft; Z95.5 Presence of coronary angioplasty implant and graft; R63.4 Abnormal weight loss; Z85.038 Personal history of other malignant neoplasm of large intestine; K59.00 Constipation, unspecified; I73.9 Peripheral vascular disease, unspecified; K63.5 Polyp of colon; K29.40 Chronic atrophic gastritis without bleeding; K29.60 Other gastritis without bleeding; M79.89 Other specified soft tissue disorders
CPT/HCPCS: 36430; 71010; 74177; 76937; 80048; 80053; 81001; 83690; 83735; 85007; 85014; 85018; 85025; 85027; 85610; 85730; 86850; 86900; 86901; 86927; 88304; 88305; 88312; 93005; 93971; 96361; 96365; 96375; C9113; C9132; J1100; J1170; J1650; J1940; J1956; J2270; J2370; J2405; J2550; J2710; J3010; J3430; J7030; P9017; Q9967